=== PATIENT | female | born 1955 | race Caucasian/White ===

== ENCOUNTER 2016-02-09 08:58 | Inpatient (IN) | payer OTHER ==
[2016-02-09] VITALS (7 sets, daily range): BP systolic 114–164; BP diastolic 76–104; PULSE 93–149; TEMP 36.5–36.9; O2SAT 95–100; Ht 154.9 cm; Wt 69.2 kg
[~2016-02-09] VITALS: Ht 154.9 cm; Wt 69.2 kg
[~2016-02-09 08:58] MED LIST: ACET325T96 PO; ALBU1AER9 INH; CALC-20 PO; IBUP-1427 PO; IPRASOL4 INH; LISI-461 PO; MGNO400 PO; OMEP40CA PO; SYMIN/8045 INH
[2016-02-09 09:33] LABS: BASO % 0.5 %; BASO ABS # 0.03 K/uL (0-0.2); COMPLETE YES; EOS % 0.9 %; HEMATOCRIT 34.5 % (37-47); IG% 0.4 %; LYMPH % 21.1 %; LYMPH ABS # 1.18 K/uL (1.2-3.4); MEAN CELL VOLUME 97.5 fL (80-100); MEAN CORPUSCULAR HEMOGLOBIN 36.4 pg (25-34); MEAN CORPUSCULAR HGB CONC 37.4 g/dl (32-36); MEAN PLATELET VOLUME 9.2 fL (7.4-10.4); MONO % 9.8 %; NEUT % 67.3 %; PLATELET COUNT 281 K/uL (130-400); RED BLOOD COUNT 3.54 M/uL (4.2-5.4); WHITE BLOOD COUNT 5.59 K/uL (4.8-10.8)
[2016-02-09 09:52] LABS: ALT/SGPT 70 U/L (12-78); BLOOD UREA NITROGEN 6 mg/dl (7-18); CARBON DIOXIDE 25 mmol/L (21-32); CHLORIDE 93 mmol/L (98-107); CREATININE 0.92 mg/dl (0.60-1.20); GLUCOSE 81 mg/dl (70-99); POTASSIUM 3.1 mmol/L (3.5-5.1); SODIUM 134 mmol/L (136-145)
[2016-02-09 09:56] LABS: ALKALINE PHOSPHATASE 91 U/L (45-117); AST/SGOT 96 U/L (15-37); PHOSPHORUS 4.9 mg/dl (2.5-4.9)
--- NOTE | 2016-02-09 10:00 | DIAGNOSTIC IMAGING REPORT ---
CHEST ONE VIEW PORTABLE CLINICAL HISTORY: Palpitations. Nausea. COMPARISON STUDY: Chest radiograph November 07, 2013. FINDINGS: Lung volumes are normal. Lungs are clear. There is no evidence of pulmonary edema. Cardiac size is normal. Mediastinal contours are normal. There is a healed fracture of the right sixth rib. There may be calcific tendinitis of the left rotator cuff. IMPRESSION: No acute cardiopulmonary findings. Electronically signed by: Bunny Morton M.D. 02/09/2016 9:57 AM
[2016-02-09 10:09] LABS: CALCIUM 6.8 mg/dl (8.5-10.1)
[2016-02-09 10:11] LABS: MAGNESIUM 0.5 mg/dl (1.8-2.4)
[2016-02-09] MEDS ORDERED: MAGNESIUM SULFATE 1GM / D5W 1 GM BAG IV STA (10:12)
[2016-02-09] MEDS ORDERED: CALCIUM GLUCONATE 10% 10 ML VIAL IV STA (10:45)
--- NOTE | 2016-02-09 10:45 | EMERGENCY ROOM VISIT NOTE ---
History First contact with patient: 09:13 Chief Complaint: REFERRED BY DOCTOR Stated Complaint: NAUSEA History of Present Illness The patient is a 60 year old female who presents to the Emergency Room with complaints of tingling in both of her arms and legs. The patient reports that she has had a feeling of pins and needles in bilateral arms and legs on and off for the past 2-3 weeks. She reports her symptoms have become more constant over the past few days. She was seen at her primary care provider's office this morning and sent here for further evaluation. The patient does report a history of similar symptoms years ago and states that at that time, she was seen here and admitted for low magnesium and low calcium. The patient also reports that she has had left lower quadrant abdominal pain for "a long time." She did not mention this to her primary care provider until this morning. She denies any change in his pain. She denies associated nausea, vomiting or bowel movement changes. She denies any chest pain, shortness of breath, weakness, headache, blurred vision, slurred speech or confusion. The patient denies any changes in her diet. She reports that she has been taking her magnesium and calcium supplements as prescribed. Review of Systems A complete 10-point Review of Systems was discussed with the patient, with pertinent positives and negatives listed in the History of Present Illness. All remaining Review of Systems questions can be considered negative unless otherwise specified. Past Medical/Surgical History Medical Problems: (1) Alcoholism (2) Asthma (3) High cholesterol Family History No pertinent family history Social History Smoking Status: Never Smoker Alcohol Use: heavy Drug Use: none Housing Status: lives with family Occupation Status: unemployed Current/Historical Medications Scheduled Albuterol (Proair Hfa), 2 PUFFS INH QID Budesonide/Formoterol Fumarate (Symbicort 80/4.5 Inhaler), 2 PUFFS INH BID Calcium Carbonate-Vitamin D (Calcium 600 + D), 1 TAB PO DAILY Lisinopril (Zestril), 20 MG PO DAILY Magnesium Oxide (Magnesium-Oxide), 400 MG PO DAILY Omeprazole (Prilosec), 40 MG PO DAILY Scheduled PRN Ibuprofen Tab (Motrin), 600 MG PO Q6H PRN for Pain Ipratropium-Albuterol (Duoneb), 1 TREATMENT INH Q4H PRN for SOB/Wheezing Allergies Coded Allergies: No Known Allergies (Unverified , 02/09/16) Physical Exam Vital Signs Date Time Temp Pulse Resp B/P Pulse Ox O2 Delivery O2 Flow Rate FiO2 02/09/16 12:11 90 24 136/93 94 Room Air 02/09/16 11:02 36.9 104 18 114/76 97 Room Air 02/09/16 10:42 100 18 114/76 97 Room Air 02/09/16 09:06 36.9 114 18 149/94 98 Room Air Physical Exam VITALS: Vitals are noted on the nurse's note and reviewed by myself. Vital signs stable. GENERAL: This is a 60-year-old female, in no acute distress, nondiaphoretic, well-developed well-nourished. SKIN: Capillary reflex less than 2 seconds. HEENT: Normocephalic. PERRLA. EOMI. Nares patent. Mucous membranes moist. Neck is supple without nuchal rigidity. HEART: Regular rate and rhythm without murmurs gallops or rubs. LUNGS: Clear to auscultation bilaterally without wheezes, rales or rhonchi. No retractions or accessory muscle use. ABDOMEN: Positive bowel sounds x 4. Mild tenderness to palpation of the left lower quadrant. MUSCULOSKELETAL: Full range of motion of all joints. Strength 5/5 throughout. NEURO: Patient was alert and oriented to person place and time. Normal sensation to light and sharp touch. No focal neurological deficits. Medical Decision & Procedures ER Provider Diagnostic Interpretation: CHEST ONE VIEW PORTABLE CLINICAL HISTORY: Palpitations. Nausea. COMPARISON STUDY: Chest radiograph November 07, 2013. FINDINGS: Lung volumes are normal. Lungs are clear. There is no evidence of pulmonary edema. Cardiac size is normal. Mediastinal contours are normal. There is a healed fracture of the right sixth rib. There may be calcific tendinitis of the left rotator cuff. IMPRESSION: No acute cardiopulmonary findings. Laboratory Results Test 02/09/16 09:15 Immature Granulocyte % (Auto) 0.4 % White Blood Count 5.59 K/uL (4.8-10.8) Red Blood Count 3.54 M/uL (4.2-5.4) Hemoglobin 12.9 g/dL (12.0-16.0) Hematocrit 34.5 % (37-47) Mean Corpuscular Volume 97.5 fL (80-100) Mean Corpuscular Hemoglobin 36.4 pg (25-34) Mean Corpuscular Hemoglobin Concent 37.4 g/dl (32-36) Platelet Count 281 K/uL (130-400) Mean Platelet Volume 9.2 fL (7.4-10.4) Neutrophils (%) (Auto) 67.3 % Lymphocytes (%) (Auto) 21.1 % Monocytes (%) (Auto) 9.8 % Eosinophils (%) (Auto) 0.9 % Basophils (%) (Auto) 0.5 % Neutrophils # (Auto) 3.76 K/uL (1.4-6.5) Lymphocytes # (Auto) 1.18 K/uL (1.2-3.4) Monocytes # (Auto) 0.55 K/uL (0.11-0.59) Eosinophils # (Auto) 0.05 K/uL (0-0.5) Basophils # (Auto) 0.03 K/uL (0-0.2) Immature Granulocyte # (Auto) 0.02 K/uL (0.00-0.02) Phosphorus Level 4.9 mg/dl (2.5-4.9) Total Bilirubin 0.3 mg/dl (0.2-1) Aspartate Amino Transf (AST/SGOT) 96 U/L (15-37) Alanine Aminotransferase (ALT/SGPT) 70 U/L (12-78) Alkaline Phosphatase 91 U/L (45-117) Total Creatine Kinase 134 U/L (26-192) Troponin I < 0.015 ng/ml (0-0.045) Total Protein 8.2 gm/dl (6.4-8.2) Albumin 4.0 gm/dl (3.4-5.0) Globulin 4.2 gm/dl (2.5-4.0) Albumin/Globulin Ratio 1.0 (0.9-2) Thyroid Stimulating Hormone (TSH) 1.150 uIu/ml (0.300-4.500) Medications Administered Medications (Trade) Dose Ordered Sig/Rosemary Route Start Time Stop Time Status Last Admin Dose Admin Magnesium Sulfate (Magnesium Sulfate) 2 gm NOW STAT IV 02/09/16 10:12 02/09/16 10:13 DC 02/09/16 10:38 2 GM Calcium Gluconate (Calcium Gluconate 10%) 1,000 mg NOW STAT IV 02/09/16 10:45 02/09/16 10:46 DC 02/09/16 11:43 1,000 MG ECG Indication: other Rate (beats per minute): 101 Rhythm: sinus tachycardia Findings: nonspecific-ST abn (Lateral) Medical Decision Differential diagnosis includes electrolyte abnormality, arrhythmia, The patient was evaluated as above. Labs were drawn and IV access was obtained. Imaging studies were performed and read by radiology as above. The patient was medicated with 2 g magnesium and 1 g calcium IV. The patient was reassessed multiple times during their stay in the emergency department and remained in stable condition. The patient is a 60-year-old female who presents today complaining of tremors which are similar to the symptoms she had when she was seen here previously for hypomagnesemia and hypocalcemia. She also reports left lower quadrant pain which has been ongoing for several months. Labs revealed no concerning leukocytosis or anemia. Magnesium was found to be significantly low at 0.5. Calcium is also significantly low. Chest x-ray was unremarkable. EKG showed a sinus tachycardia without arrhythmias. The patient will need to be admitted for further evaluation and to correct her electrolyte abnormalities. Case was discussed with Dr. Portillo, ED attending, who agreed with the assessment and treatment plan. The patient's case was discussed with Dr. Jimenez, the [facility] hospitalist, who agreed to evaluate the patient. Impression Primary Impression: Hypomagnesemia Additional Impression: Hypocalcemia Departure Information Referrals Renee Murillo DO (PCP) Patient Instructions A Signature Page, My [facility]
[2016-02-09] MEDS ORDERED: ONDANSETRON INJ 2 MG/ML 2 ML VIAL IV PRN (12:00)
[2016-02-09] MEDS ORDERED: POLYETHYLENE (MIRALAX) 17 GM PACK PO PRN (12:00)
[2016-02-09] MEDS ORDERED: ALBUT/IPRATROP 3MG/0.5MG NEB 3 ML VIAL INH PRN (12:00)
[2016-02-09] MEDS ORDERED: MAGNESIUM HYDROXIDE SUSP 30 ML UDC PO PRN (12:00)
[2016-02-09] MEDS ORDERED: ALUMINUM/MAGNESIUM/SIMETH (MAALOX MAX) 30 ML UDC PO PRN (12:00)
[2016-02-09] MEDS ORDERED: POTASSIUM CHLR 20 MEQ / WTR 40 MEQ in PREMIXED WATER 100 ML IV ONE (12:30)
[2016-02-09] MEDS ORDERED: OPTIRAY 320 IV PRN (12:45)
[2016-02-09] MEDS ORDERED: ALBUTEROL HFA 8 GM INHALER INH SCH (13:00)
--- NOTE | 2016-02-09 13:20 | History and Physical ---
History & Physical Date & Time of Service: Feb 09, 2016 at 12:46 Chief Complaint: Nausea Primary Care Physician: Renee Murillo DO History of Present Illness Source: patient, clinic records, hospital records This is a 60 y/o female with a history of hypomagnesemia, COPD, HTN, HLD, GERD, and urticaria who presented to the ED on 02/08 with numbness and tingling in her arms and legs and tremors. The numbness and tingling first began about 2 weeks ago and was initially intermittent. The symptoms began to happen more frequently, and her tingling is now constant. The patient states that it affects her whole arm from fingers to shoulder bilaterally as well her entire leg from toes to hip bilaterally. She describes it as a "pins and needles" sensation. The patient also started experiencing tremors 2 weeks ago that have increased in frequency and severity. The tremors are better at rest and are worse when she moves her extremities. She states that the tremors seemed to have improved since being in the ER, however. The patient has a history of hypomagnesemia and had a very similar presentation about 2 years ago. She was found to have low electrolytes at that time as well, and her symptoms resolved once they were replaced, and she has been kept on oral magnesium and calcium supplements since. The patient also complains of weakness, fatigue, nausea, decreased appetite and trouble sleeping in the last few weeks. She states that she has been dry heaving but not actually vomiting. She also complains of diarrhea and abdominal pain that has been more chronic and began months ago. She rates her abdominal pain currently as a dull 4/10 pain in the left lower quadrant, but the pain is sometimes sharp in character. She has not received any work up regarding the abdominal pain or diarrhea. The patient denies fevers , chills, sweats, syncope, chest pain, palpitations, claudication, wheezing, shortness of breath, vomiting, hematochezia, melena, dysuria, hematuria, urinary retention, and paralysis. Past Medical/Surgical History Medical Problems: (1) Alcoholism Status: Chronic (2) Asthma Status: Chronic (3) High cholesterol Status: Chronic HTN COPD Hypomagnesemia Urticaria Family History Asthma Emphysema Hypertension Social History Smoking Status: Current Every Day Smoker (1/2 ppd x 50 years) Smokeless Tobacco Use: No Alcohol Use: heavy (1-2 drinks (vodka and coke) per day) Drug Use: none Marital Status: Housing status: lives with significant other Occupational Status: retired Allergies Coded Allergies: No Known Allergies (Unverified , 02/09/16) Home Medications Scheduled Albuterol (Proair Hfa), 2 PUFFS INH QID Budesonide/Formoterol Fumarate (Symbicort 80/4.5 Inhaler), 2 PUFFS INH BID Calcium Carbonate-Vitamin D (Calcium 600 + D), 1 TAB PO DAILY Lisinopril (Zestril), 20 MG PO DAILY Magnesium Oxide (Magnesium-Oxide), 400 MG PO DAILY Omeprazole (Prilosec), 40 MG PO DAILY Scheduled PRN Ibuprofen Tab (Motrin), 600 MG PO Q6H PRN for Pain Ipratropium-Albuterol (Duoneb), 1 TREATMENT INH Q4H PRN for SOB/Wheezing Review of Systems Constitutional: + fatigue, + weakness, No chills, No fever, No sweats Eyes: No diplopia, No eye pain, No worsening of vision ENT: No hearing loss, No sore throat, No tinnitus Respiratory: + cough (chronic, smoker), No shortness of breath, No wheezing Cardiovascular: No chest pain, No claudication, No palpitations Abdomen: + diarrhea, + nausea, + pain (4/10 LLQ pain), No GI bleeding, No vomiting Musculoskeletal: No calf pain, No joint pain, No muscle pain Genitourinary - Female: No dysuria, No hematuria, No urinary incontinence Neurologic: + numbness/tingling, No paralysis, No vertigo, No weakness (no muscle weakness) Integumentary: No color change, No itch, No rash Physical Exam Vital Signs Date Time Temp Pulse Resp B/P Pulse Ox O2 Delivery O2 Flow Rate FiO2 02/09/16 12:11 90 24 136/93 94 Room Air 02/09/16 11:02 36.9 104 18 114/76 97 Room Air 02/09/16 10:42 100 18 114/76 97 Room Air 02/09/16 09:06 36.9 114 18 149/94 98 Room Air General Appearance: WD/WN, no apparent distress Head: normocephalic, atraumatic Eyes: normal inspection, PERRL, EOMI ENT: normal ENT inspection, hearing grossly normal, pharynx normal Neck: supple, no JVD, trachea midline Respiratory/Chest: lungs clear, normal breath sounds, no respiratory distress, + decreased breath sounds Cardiovascular: regular rate, rhythm, no gallop, no murmur Abdomen/GI: normal bowel sounds, soft, + tenderness (LLQ TTP without guarding or rebound tenderness) Extremities/Musculoskelatal: normal inspection, no calf tenderness, no pedal edema Neurologic/Psych: alert, normal mood/affect, oriented x 3 Skin: normal color, warm/dry, no rash Diagnostics Laboratory Results Results Past 24 Hours Test 02/09/16 09:15 02/09/16 12:17 02/09/16 12:28 Range/Units White Blood Count 5.59 4.8-10.8 K/uL Red Blood Count 3.54 4.2-5.4 M/uL Hemoglobin 12.9 12.0-16.0 g/dL Hematocrit 34.5 37-47 % Mean Corpuscular Volume 97.5 80-100 fL Mean Corpuscular Hemoglobin 36.4 25-34 pg Mean Corpuscular Hemoglobin Concent 37.4 32-36 g/dl Platelet Count 281 130-400 K/uL Mean Platelet Volume 9.2 7.4-10.4 fL Neutrophils (%) (Auto) 67.3 % Lymphocytes (%) (Auto) 21.1 % Monocytes (%) (Auto) 9.8 % Eosinophils (%) (Auto) 0.9 % Basophils (%) (Auto) 0.5 % Neutrophils # (Auto) 3.76 1.4-6.5 K/uL Lymphocytes # (Auto) 1.18 1.2-3.4 K/uL Monocytes # (Auto) 0.55 0.11-0.59 K/uL Eosinophils # (Auto) 0.05 0-0.5 K/uL Basophils # (Auto) 0.03 0-0.2 K/uL RDW Standard Deviation 44.7 36.4-46.3 fL RDW Coefficient of Variation 12.8 11.5-14.5 % Immature Granulocyte % (Auto) 0.4 % Immature Granulocyte # (Auto) 0.02 0.00-0.02 K/uL Sodium Level 134 136-145 mmol/L Potassium Level 3.1 3.5-5.1 mmol/L Chloride Level 93 98-107 mmol/L Carbon Dioxide Level 25 21-32 mmol/L Anion Gap 16.0 3-11 mmol/L Blood Urea Nitrogen 6 7-18 mg/dl Creatinine 0.92 0.60-1.20 mg/dl Est Creatinine Clear Calc Drug Dose 56.5 ml/min Estimated GFR () 78.4 Estimated GFR (Non- 67.7 BUN/Creatinine Ratio 6.0 10-20 Random Glucose 81 70-99 mg/dl Calcium Level 6.8 8.5-10.1 mg/dl Phosphorus Level 4.9 2.5-4.9 mg/dl Magnesium Level 0.5 1.8-2.4 mg/dl Total Bilirubin 0.3 0.2-1 mg/dl Aspartate Amino Transf (AST/SGOT) 96 15-37 U/L Alanine Aminotransferase (ALT/SGPT) 70 12-78 U/L Alkaline Phosphatase 91 45-117 U/L Total Creatine Kinase 134 26-192 U/L Troponin I < 0.015 0-0.045 ng/ml Total Protein 8.2 6.4-8.2 gm/dl Albumin 4.0 3.4-5.0 gm/dl Globulin 4.2 2.5-4.0 gm/dl Albumin/Globulin Ratio 1.0 0.9-2 Thyroid Stimulating Hormone (TSH) 1.150 0.300-4.500 uIu/ml Diagnostic Radiology Reviewed the following studies and agree with interpretation as follows: Patient Name: OLIVIA BOWER Unit Number: [id number] Dictated: 02/09/16941 Transcribed: 02/09/16941 SARAH Printed Date/Time: [~ rep prt dt]/[~ rep prt tm] [~ rep ct labl] - [~ rep ct ivnm] [facility] [place] [address] Dictated: 02/09/16941 Transcribed: 02/09/16941 SARAH Printed Date/Time: [~ rep prt dt]/[~ rep prt tm] [~ rep ct labl] - [~ rep ct ivnm] Patient: OLIVIA BOWER Address1: [address] [place] [address] Rec: [id number] Address2: Acct ID: [id number] [facility] Zip: [place] [address] Date: 1955 Sex: F Room/Bed: Ref Phy: Renee Murillo DO SC: RONNY Att Phy: Report #: [id number] Natasha Phy: Renee Murillo DO Test: CXR1P Admit Phy: Audiovisual Librarian: JERAMIE Interpreting Phy: Bunny Morton MD Diagnosis: NAUSEA Ordering Phy: Liza Ling PA-C Service Date: 02/09/16 Admit Date: 02/09/16 MNE: [id number] CONF: DICTATED BY: Bunny Morton MD]] CC: Renee Murillo DO Koch, Brooke .JESUS ALBERTO Kevin, D.O. Endcc: [~ rep ct add3]] CHEST ONE VIEW PORTABLE CLINICAL HISTORY: Palpitations. Nausea. COMPARISON STUDY: Chest radiograph November 07, 2013. FINDINGS: Lung volumes are normal. Lungs are clear. There is no evidence of pulmonary edema. Cardiac size is normal. Mediastinal contours are normal. There is a healed fracture of the right sixth rib. There may be calcific tendinitis of the left rotator cuff. IMPRESSION: No acute cardiopulmonary findings. Electronically signed by: Bunny Morton M.D. 02/09/2016 9:57 AM The status of this report is Signed. Draft = Not yet reviewed or approved by Radiologist. Signed = Reviewed and approved by Radiologist. <AttendingPhy></AttendingPhy> <FamilyPhy>Renee Murillo DO</FamilyPhy> < PrimaryPhy>Renee Murillo DO</PrimaryPhy> <UnitNumber>[id number]</ UnitNumber> <VisitNumber>[id number]</VisitNumber> <PatientName>OLIVIA BOWER</ PatientName> <DateOfBirth>1955</DateOfBirth> <Location>[facility]</Location> < ServiceDate>02/09/16</ServiceDate> <MNE>ESINDI</MNE> <OrderingPhy>Liza Ling PA-C</OrderingPhy> <OrderingPhyMNE>f rep ord dr farias</OrderingPhyMNE> < DictatingPhyMNE>f rep dict dr farias</DictatingPhyMNE> <CCListMNE>f rep ct zhange</ CCListMNE> <AdmittingPhyMNE>f pt admit dr farias</AdmittingPhyMNE> <AttendingPhyMNE >f pt attend dr farias</AttendingPhyMNE> <ConsultingPhyMNE>f pt consult dr farias</ConsultingPhyMNE> <FamilyPhyMNE>f pt fam dr farias</FamilyPhyMNE> <OtherPhyMNE>f pt other dr farias</OtherPhyMNE> < PrimaryPhyMNE>f pt prim care dr farias</PrimaryPhyMNE> <ReferringPhyMNE>f pt referring dr farias</ReferringPhyMNE> EKG Reviewed EKG and agree with interpretation as follows: 101 bpm, sinus tachycardia, inverted T waves in lateral leads Impression Assessment and Plan 60 y/o female with a history of hypomagnesemia, COPD, HTN, HLD, GERD, and urticaria who presented to the ED on 02/08 with numbness and tingling in her arms and legs and tremors. Tingling began 2 weeks ago intermittently at first, now constant. Accompanied by nausea, decreased appetite, weakness and fatigue. Pt also c/o diarrhea and LLQ pain in last few months. Tachycardic, HR 100-110s. Magnesium 0.5, calcium 6.8, potassium 3.1. Cardiac enzymes negative x 1. CXR no acute disease. Hypomagnesemia, hypocalcemia, hypokalemia -Admitted to telemetry for cardiac monitoring -Check ionized calcium, prealbumin, folic acid, vitamin B12 -Pt. received magnesium sulfate 2 gm IV and calcium gluconate 1 gm IV in ED -Potassium chloride 40 mEq IV x1 now -Recheck PRP and magnesium 4 hours after infusions. Continue to monitor with daily PRP and magnesium -EKG q am and prn with chest pain -Hold omeprazole due to hypomagnesemia -Hold oral Mg and Ca supplements as pt. likely not absorbing anyway. Pt. reports she has been taking Mag-Ox 400 mg PO QID, and started taking 6x/day when tingling first began due to previous episode 2 years ago. Pt also taking calcium supplement everyday. Diarrhea/LLQ pain -CT abdomen/pelvis with PO and IV contrast COPD -Continue Symbicort 2 puffs inh BID, ProAir 2 puffs inh QID, and Duoneb q4h prn SOB/wheezing HTN -Continue lisinopril 20 mg PO qd GERD -Hold omeprazole as above GI prophylaxis -Maalox Max 15 mL PO q4h prn dyspepsia -Milk of magnesia 30 mL PO q6h prn constipation -Miralax 17 gm PO qd prn constipation -Zofran 4 mg IV q6h prn nausea DVT prophylaxis -Enoxaparin 40 mg SC q24h -JESSICA crespo and SCDs Code Status -Level I, FULL RESUSCITATION STATUS Level of Care Telemetry Advanced Directives Existing Advance Directive: No Existing Living Will: No Existing Power of Spread Cutter: No Resuscitation Status FULL RESUSCITATION VTE Prophylaxis VTE Risk Assessment Done? Y/N: Yes Risk Level: Moderate Given or contraindicated: Enoxaparin (Lovenox)SQ, T.E.D. Stockings, SCD's
[2016-02-09] MEDS ORDERED: ALBUT/IPRATROP 3MG/0.5MG NEB 3 ML VIAL INH STA (15:32)
--- NOTE | 2016-02-09 15:32 | DIAGNOSTIC IMAGING REPORT ---
CT ABD/PELVIS IV AND ORAL CONT CLINICAL HISTORY: diarrhea and LLQ pain COMPARISON STUDY: 02/18/2014 TECHNIQUE: Following the IV administration of 93 mL of Optiray-320, CT scan of the abdomen and pelvis was performed from the lung bases to the proximal femurs. Images are reviewed in the axial, sagittal, and coronal planes. IV contrast was administered without complication. CT DOSE: 317.02 mGy.cm FINDINGS: Lower chest: There is pulmonary emphysema. There is no focal pulmonary consolidation Liver: There is severe hepatic steatosis. No focal masses are visualized. Gallbladder: Unremarkable. Spleen: Normal in size and attenuation. Pancreas: Unremarkable. Adrenal glands: Unremarkable. Kidneys: There is symmetric renal cortical enhancement. The kidneys are normal in size without hydronephrosis. Bowel: There are no transition zones indicate bowel obstruction. There is no evidence of acute appendicitis. There is no evidence of acute diverticulitis. There is gastric wall thickening versus a nondistended stomach Peritoneum: There is no intraperitoneal free air or abdominal ascites. Vasculature: The abdominal aorta is normal in course and caliber. Adenopathy: None. Pelvic viscera: The bladder, and pelvic viscera are unremarkable. Skeletal structures: No destructive osseous lesions are seen. IMPRESSION: 1. Hepatic steatosis 2. No evidence of bowel obstruction. No evidence of free air 3. Diffuse gastric wall thickening versus a nondistended stomach 4. No evidence of acute diverticulitis. No evidence of acute appendicitis. Electronically signed by: Richard Urbina M.D. 02/09/2016 3:30 PM
[2016-02-09] MEDS: METHYLPREDNISOLONE 125 MG VIAL ONE ×2 (15:34→15:47)
[2016-02-09] MEDS ORDERED: METHYLPREDNISOLONE IV 125 MG in SYRINGE 0 ML IV STA (15:35)
[2016-02-09] MEDS ORDERED: MoRPHine SULFATE 2 MG/ML CARP ONE (15:40)
[2016-02-09] MEDS ORDERED: MAGNESIUM SULFATE 1GM / D5W 1 GM in PREMIXED IN D5W 100 ML IV SCH (15:45)
[2016-02-09 15:59] LABS: HEMATOCRIT 33.1 % (37-47); MEAN CELL VOLUME 98.8 fL (80-100); MEAN CORPUSCULAR HEMOGLOBIN 35.8 pg (25-34); MEAN CORPUSCULAR HGB CONC 36.3 g/dl (32-36); MEAN PLATELET VOLUME 9.1 fL (7.4-10.4); PLATELET COUNT 257 K/uL (130-400); RED BLOOD COUNT 3.35 M/uL (4.2-5.4); WHITE BLOOD COUNT 5.99 K/uL (4.8-10.8)
[2016-02-09] MEDS: POTASSIUM CHLR 10MEQ / WTR IV SCH ×2 (16:05→17:11)
[2016-02-09] MEDS ORDERED: POTASSIUM CHLORIDE 10 MEQ TABCR PO STA (16:11)
[2016-02-09 16:13] LABS: PROTHROMBIN TIME (PATIENT) 10.3 SECONDS (9.0-12.0)
[2016-02-09 16:20] LABS: CREATININE 0.78 mg/dl (0.60-1.20); MAGNESIUM 2.5 mg/dl (1.8-2.4)
[2016-02-09 16:24] LABS: PREALBUMIN 21.1 mg/dl (20-40)
--- NOTE | 2016-02-09 16:34 | Gastrointestinal Consultation ---
Gastrointestinal Consultation Date of Consultation: Feb 09, 2016 Attending Physician: Dr. Scherer Consulting Physician: Dr. Celis/ELPIDIO Jamison Reason for Consultation: Hypomagnesemia and chronic diarrhea History of Present Illness Patient is a 60 year old female with a history of COPD, HTN, HLD, GERD and urticaria presenting to the hospital with symptoms of numbness and tingling in her extremities that has been ongoing for approximately two weeks. She reports that she has been consuming approximately two alcoholic beverages per day to alleviate the symptoms of neuropathy. She does also consume tobacco daily but denies any NSAID use. She has reportedly been having significant although intermittent diarrhea chronically for many months. Her bowel frequency is 4-5 times per day although some days she will only have one bowel movement. The stools are mostly liquid in nature. Denies any mucoid, bloody or melanotic stool. She does report some mild left lower quadrant abdominal pain and unintentional weight loss of > 10 pounds over the past two months. Denies any nausea or vomiting, although she does state she has occasional "dry heaves". No hematemesis. Denies any foreign travel, antibiotic use within the past 6 months , or suspicious food/beverage consumption. No ill contacts. On arrival, she was noted to have significant electrolyte abnormalities as follows: sodium 134, potassium 3.1, and magnesium 0.5. She is currently receiving IV repletion. On arrival, she was not noted to have any significant renal abnormalities. No leukocytosis or anemia. She has been ordered an abdominopelvic CT for further evaluation of symptoms which is pending. She reports that while undergoing the testing, she did become short of breath and was having "an asthma attack". She is currently receiving medical management in this regard by the primary team. She is having 95% pulse ox readings on room air. She denies any significant chest pain, palpitations, shortness of breath or SUAREZ at the time of visit. Patient did previously undergo a complete colonoscopy with histology of a tubular adenoma from the hepatic flexure in 2010. The testing was performed while she resided in [place]. From review of the pathology report, it appears complete removal of the polyp is unclear. I do not have a copy of the colonoscopy report to review today to assist with this delineation. Past Medical/Surgical History Past Medical History: 1. Alcoholism 2. Asthma 3. Hyperlipemia 4. Hypertension 5. COPD 6. Hypomagnesemia 7. GERD 8. Urticaria 9. Colon polyps Past Surgical History: 1. Complete colonoscopy Family History Asthma Emphysema Hypertension Negative for GI malignancy and IBD Social History Smoking Status: Current Every Day Smoker (1/2 ppd x 50 years) Alcohol Use: heavy Drug Use: none Marital Status: Housing Status: lives with family Occupation Status: retired Allergies Coded Allergies: No Known Allergies (Unverified , 02/09/16) Current Medications Home Meds and Scripts Medications Dose Route/Sig Max Daily Dose Days Date Category Motrin (Ibuprofen) 600 Mg Tab 600 Mg PO Q6H PRN 02/18/14 Reported Magnesium-Oxide (Magnesium Oxide) 400 Mg Tab 400 Mg PO DAILY 11/09/13 Rx Duoneb (Ipratropium-Albuterol) 3 Ml Nebu 1 Treatment INH Q4H PRN 11/07/13 Reported Calcium 600 + D (Calcium Carbonate-Vitamin D) 1 Tab Tab 1 Tab PO DAILY 11/07/13 Reported Symbicort 80/4.5 Inhaler (Budesonide/Formoterol Fumarate) Aero 2 Puffs INH BID 11/07/13 Reported Proair Hfa (Albuterol) Aers 2 Puffs INH QID 11/07/13 Reported Zestril (Lisinopril) 10 Mg Tab 20 Mg PO DAILY 11/07/13 Reported Prilosec (Omeprazole) 40 Mg Capcr 40 Mg PO DAILY 11/07/13 Reported Review of Systems Constitutional: + fatigue, No chills, No fever Eyes: No problem reported ENT: No problem reported Respiratory: + see HPI Cardiac: + see HPI Abdomen: + see HPI Musculoskeletal: + problem reported (joint stiffness in hands), No swelling Female : No problem reported Neuro: + see HPI Psych: No problem reported Heme: No problem reported Skin: No problem reported Physical Exam Date Time Temp Pulse Resp B/P Pulse Ox O2 Delivery O2 Flow Rate FiO2 02/09/16 14:00 36.5 95 18 141/96 99 Room Air 02/09/16 14:00 96 Room Air 02/09/16 13:27 114 24 133/81 94 02/09/16 12:11 90 24 136/93 94 Room Air 02/09/16 11:02 36.9 104 18 114/76 97 Room Air 02/09/16 10:42 100 18 114/76 97 Room Air 02/09/16 09:06 36.9 114 18 149/94 98 Room Air General Appearance: + mild distress Eyes: EOMI ENT: hearing grossly normal Neck: supple Respiratory/Chest: lungs clear, normal breath sounds, no respiratory distress Cardiovascular: regular rate, rhythm, no gallop, no murmur Abdomen: normal bowel sounds, soft, + tenderness (left lower quadrant) Extremities: no pedal edema Neurologic/Psych: alert, normal mood/affect, oriented x 3 Skin: warm/dry Laboratory Results Last 24 Hours Test 02/09/16 09:15 02/09/16 12:17 02/09/16 14:36 02/09/16 15:45 White Blood Count 5.59 K/uL 5.99 K/uL Red Blood Count 3.54 M/uL 3.35 M/uL Hemoglobin 12.9 g/dL 12.0 g/dL Hematocrit 34.5 % 33.1 % Mean Corpuscular Volume 97.5 fL 98.8 fL Mean Corpuscular Hemoglobin 36.4 pg 35.8 pg Mean Corpuscular Hemoglobin Concent 37.4 g/dl 36.3 g/dl Platelet Count 281 K/uL 257 K/uL Mean Platelet Volume 9.2 fL 9.1 fL Neutrophils (%) (Auto) 67.3 % Lymphocytes (%) (Auto) 21.1 % Monocytes (%) (Auto) 9.8 % Eosinophils (%) (Auto) 0.9 % Basophils (%) (Auto) 0.5 % Neutrophils # (Auto) 3.76 K/uL Lymphocytes # (Auto) 1.18 K/uL Monocytes # (Auto) 0.55 K/uL Eosinophils # (Auto) 0.05 K/uL Basophils # (Auto) 0.03 K/uL RDW Standard Deviation 44.7 fL 46.9 fL RDW Coefficient of Variation 12.8 % 13.0 % Immature Granulocyte % (Auto) 0.4 % Immature Granulocyte # (Auto) 0.02 K/uL Sodium Level 134 mmol/L Potassium Level 3.1 mmol/L Chloride Level 93 mmol/L Carbon Dioxide Level 25 mmol/L Anion Gap 16.0 mmol/L Blood Urea Nitrogen 6 mg/dl Creatinine 0.92 mg/dl Est Creatinine Clear Calc Drug Dose 56.5 ml/min Estimated GFR () 78.4 Estimated GFR (Non- 67.7 BUN/Creatinine Ratio 6.0 Random Glucose 81 mg/dl Calcium Level 6.8 mg/dl Phosphorus Level 4.9 mg/dl Magnesium Level 0.5 mg/dl Total Bilirubin 0.3 mg/dl Aspartate Amino Transf (AST/SGOT) 96 U/L Alanine Aminotransferase (ALT/SGPT) 70 U/L Alkaline Phosphatase 91 U/L Total Creatine Kinase 134 U/L Troponin I < 0.015 ng/ml Total Protein 8.2 gm/dl Albumin 4.0 gm/dl Globulin 4.2 gm/dl Albumin/Globulin Ratio 1.0 Thyroid Stimulating Hormone (TSH) 1.150 uIu/ml Prothrombin Time 10.3 SECONDS Prothromb Time International Ratio 1.0 Test 02/09/16 15:54 02/09/16 16:02 02/09/16 16:06 Impression Patient is a 60 year old female with a history of numbness and tingling of the extremities presenting with severe hypomagnesemia, hypokalemia and hyponatremia in the setting of chronic diarrhea, LLQ pain and abnormal weight loss. The differential diagnoses include: infectious enteritis vs acute diverticulitis vs ischemic colitis vs IBD vs GI malignancy vs other. Plan 1. Recommend continued repletion of electrolyte imbalances and supportive care via primary team. 2. Stool for C Diff, fecal leukocytes, Giardia, and culture. 3. Await results of CT as pending. 4. Patient will need a repeat colonoscopy at some point as she is past due for routine colorectal surveillance and if no clear etiology of her diarrhea is identified. Will determine the timing pending results of testing as ordered. Thank you for allowing us to participate in the care of this mutual patient. If you have any questions or concerns, please do not hesitate to contact us. Addendum at 1651: CT without any acute process within the lower GI tract. Recommend initiation of Protonix 40 mg daily as possible gastric wall thickening and check a Celiac profile. Clear liquid diet ordered with NPO after midnight except medications. Discussed with Kyle Guido PA-C. Patient has been transferred to ICU room 102 as she did have an arrhythmia with a HR escalation into the 240 range. Therefore, due to recent electrolyte abnormalities and change in status, she will not be a good candidate for invasive work up tomorrow. Will re-evaluate her status tomorrow in this regard. Agree with ELPIDIO Jamison as above Gen: Anxious, jittery, tremor noted, tachycardic, and hypertensive on monitor Abd: Soft, Tender LLQ, ND, +BS Patient will certainly need colonoscopy in the near future, however, due to electrolyte abnormalities and cardiac arrhythmia will hold at present. She is an alcoholic and is exhibiting signs of DT's (Tachycardia, hypertension, anxiety, tremor). I discussed this with ICU team and recommended prophylaxis for DT's. Replete electrolytes as needed. Will follow clinical course and make further recommendations as needed.
[2016-02-09 17:21] LABS: BUN/CREATININE RATIO 8.2 (10-20); CALCIUM 7.1 mg/dl (8.5-10.1); CREATININE 0.77 mg/dl (0.60-1.20); POTASSIUM 3.1 mmol/L (3.5-5.1)
[2016-02-09] MEDS ORDERED: LAVAGE SOLUTION 4000ML PO SCH (18:00)
[2016-02-09] MEDS ORDERED: CHLORDIAZEPOXIDE 25 MG CAP PO PRN (18:30)
--- NOTE | 2016-02-09 18:55 | Critical Care Consultation ---
Critical Care Consultation Date of Consultation: Feb 09, 2016. Attending Physician: Chase Scherer MD, PhD Reason for Consultation: Hypomagnesemia History of Present Illness Mrs. Wolf is a pleasant 60 year old female with a background of hypomagnesemia , COPD, HTN, HLD, GERD, who presents today with symptoms of numbness and tingling in her arms and legs as well as her hands and feet that are constant Her symptoms started 2 weeks ago. Prior to this she denies have any symptoms atoll. It is noted from the EMR that she as admitted 2 years ago for similar symptoms and was discharged on calcium and magnesium supplementation. Since then she notes overall her symptoms had improved until approximately 2 weeks ago. She denies feeling unstable on her feet. However, she notes that occasionally she gets a mild burning pain in her hands and feet. She notes that she does take alcohol 2-3 units daily (voldka mix drinks), and they actually seem to help the paresthesias. She also notes for the past 2-3 months having a intermittent sharp pain in the left lower quadrant and suprapubic area. She has had diarrhea, but denies melena or bloody stools. She does get nauseated but no vomiting. She feels she has also lost weight over this time, but cannot ascertain how much. She denies any new medications She denies any fevers chills or nightsweats There is no history of recent travel. Prior to arrival to the ICU, she had an episode of cyanosis, respiratory distress with chest tightness following arrival to floor from abdominal CT ( with contrast). She was given BiPAP, solumedrol and Magnesium IV. Due to episode, she was transferred to the ICU for further management Family History Asthma Emphysema Hypertension Father had COPD Social History Smoking Status: Current Every Day Smoker (1/2 ppd x 50 years) Smokeless Tobacco Use: No Alcohol Use: heavy (2-3 drinks (vodka and coke) per day) Drug Use: none Marital Status: Housing Status: lives with family () Occupation Status: retired Allergies Coded Allergies: No Known Allergies (Unverified , 02/09/16) Home Medications Scheduled Albuterol (Proair Hfa), 2 PUFFS INH QID Budesonide/Formoterol Fumarate (Symbicort 80/4.5 Inhaler), 2 PUFFS INH BID Calcium Carbonate-Vitamin D (Calcium 600 + D), 1 TAB PO DAILY Lisinopril (Zestril), 20 MG PO DAILY Magnesium Oxide (Magnesium-Oxide), 400 MG PO DAILY Omeprazole (Prilosec), 40 MG PO DAILY Scheduled PRN Ibuprofen Tab (Motrin), 600 MG PO Q6H PRN for Pain Ipratropium-Albuterol (Duoneb), 1 TREATMENT INH Q4H PRN for SOB/Wheezing Current Inpatient Medications Current Inpatient Medications Medications (Trade) Dose Ordered Sig/Rosemary Route Start Time Stop Time Status Last Admin Dose Admin Enoxaparin Sodium (Lovenox Inj) 40 mg Q24H SC 02/09/16 21:00 03/10/16 20:59 Acetaminophen (Tylenol Tab) 650 mg Q4H PRN PO 02/09/16 12:00 03/10/16 11:59 Al Hydrox/Mg Hydrox/Simethicone (Maalox Max Susp) 15 ml Q4H PRN PO 02/09/16 12:00 03/10/16 11:59 Magnesium Hydroxide (Milk Of Magnesia Susp) 30 ml Q12H PRN PO 02/09/16 12:00 03/10/16 11:59 Ondansetron HCl (Zofran Inj) 4 mg Q6H PRN IV 02/09/16 12:00 03/10/16 11:59 Polyethylene (Miralax Powder Packet) 17 gm DAILY PRN PO 02/09/16 12:00 03/10/16 11:59 Budesonide/ Formoterol Fumarate (Symbicort 80/ 4.5 Inh) 2 puffs BID INH 02/09/16 21:00 03/10/16 20:59 Albuterol/ Ipratropium (Duoneb) 3 ml Q4H PRN INH 02/09/16 12:00 03/10/16 11:59 Lisinopril (Zestril Tab) 20 mg DAILY PO 02/10/16 09:00 03/11/16 08:59 Ioversol (Optiray 320) 100 ml UD PRN IV 02/09/16 12:45 02/13/16 12:44 Nicotine (Nicoderm Cq 14MG Patch) 1 patch QAM TD 02/10/16 09:00 03/11/16 08:59 Miscellaneous (Remove Nicoderm Patch) 1 ea HS N/A 02/09/16 21:00 03/10/16 20:59 Pantoprazole Sodium (Protonix Tab) 40 mg QAM PO 02/10/16 09:00 03/11/16 08:59 Chlordiazepoxide (Librium Cap) 50 mg Q4H PRN PO 02/09/16 18:30 03/10/16 18:29 UNV Review of Systems Review of systems was negative unless stated above in the HPI. Physical Exam Date Time Temp Pulse Resp B/P Pulse Ox O2 Delivery O2 Flow Rate FiO2 02/09/16 18:00 36.5 99 20 144/104 95 Nasal Cannula 2.0 02/09/16 17:30 105 20 133/90 96 Nasal Cannula 2.0 02/09/16 15:32 149 31 100 BiPAP/CPAP 40 02/09/16 15:32 140 100 40 02/09/16 14:00 36.5 95 18 141/96 99 Room Air 02/09/16 14:00 96 Room Air 02/09/16 13:27 114 24 133/81 94 02/09/16 12:11 90 24 136/93 94 Room Air 02/09/16 11:02 36.9 104 18 114/76 97 Room Air 02/09/16 10:42 100 18 114/76 97 Room Air 02/09/16 09:06 36.9 114 18 149/94 98 Room Air General Appearance: WD/WN, no apparent distress, + mild distress Head: normocephalic, atraumatic Eyes: normal inspection, EOMI ENT: hearing grossly normal, pharynx normal Neck: supple, no adenopathy, no JVD Respiratory/Chest: lungs clear, no respiratory distress Cardiovascular: regular rate, rhythm, no gallop, no murmur, + tachycardia Abdomen/GI: normal bowel sounds, soft, + pertinent finding (tenderness in the left lower quadrant) Back: no CVA tenderness, no muscle spasm Extremities/Musculoskelatal: no calf tenderness, no pedal edema Neurologic/Psych: tipple greaser II-XII nml as tested, alert, normal mood/affect, oriented x 3, + pertinent finding (noted to have resting tremors; exhibits past pointing and mild dysdiadokinesis) Skin: + pertinent finding (tanned skin appearance) Laboratory Results Last 24 Hours Test 02/09/16 09:15 02/09/16 14:36 02/09/16 15:24 02/09/16 15:45 White Blood Count 5.59 K/uL 5.99 K/uL Red Blood Count 3.54 M/uL 3.35 M/uL Hemoglobin 12.9 g/dL 12.0 g/dL Hematocrit 34.5 % 33.1 % Mean Corpuscular Volume 97.5 fL 98.8 fL Mean Corpuscular Hemoglobin 36.4 pg 35.8 pg Mean Corpuscular Hemoglobin Concent 37.4 g/dl 36.3 g/dl Platelet Count 281 K/uL 257 K/uL Mean Platelet Volume 9.2 fL 9.1 fL Neutrophils (%) (Auto) 67.3 % Lymphocytes (%) (Auto) 21.1 % Monocytes (%) (Auto) 9.8 % Eosinophils (%) (Auto) 0.9 % Basophils (%) (Auto) 0.5 % Neutrophils # (Auto) 3.76 K/uL Lymphocytes # (Auto) 1.18 K/uL Monocytes # (Auto) 0.55 K/uL Eosinophils # (Auto) 0.05 K/uL Basophils # (Auto) 0.03 K/uL RDW Standard Deviation 44.7 fL 46.9 fL RDW Coefficient of Variation 12.8 % 13.0 % Immature Granulocyte % (Auto) 0.4 % Immature Granulocyte # (Auto) 0.02 K/uL Sodium Level 134 mmol/L Potassium Level 3.1 mmol/L Chloride Level 93 mmol/L Carbon Dioxide Level 25 mmol/L Anion Gap 16.0 mmol/L Blood Urea Nitrogen 6 mg/dl Creatinine 0.92 mg/dl 0.78 mg/dl Est Creatinine Clear Calc Drug Dose 56.5 ml/min 66.6 ml/min Estimated GFR () 78.4 95.8 Estimated GFR (Non- 67.7 82.6 BUN/Creatinine Ratio 6.0 Random Glucose 81 mg/dl Calcium Level 6.8 mg/dl Phosphorus Level 4.9 mg/dl Magnesium Level 0.5 mg/dl 2.5 mg/dl Total Bilirubin 0.3 mg/dl Aspartate Amino Transf (AST/SGOT) 96 U/L Alanine Aminotransferase (ALT/SGPT) 70 U/L Alkaline Phosphatase 91 U/L Total Creatine Kinase 134 U/L Troponin I < 0.015 ng/ml Total Protein 8.2 gm/dl Albumin 4.0 gm/dl Globulin 4.2 gm/dl Albumin/Globulin Ratio 1.0 Thyroid Stimulating Hormone (TSH) 1.150 uIu/ml 25-Hydroxy Vitamin D Total 40.5 ng/ml Prothrombin Time 10.3 SECONDS Prothromb Time International Ratio 1.0 Prealbumin 21.1 mg/dl Vitamin B12 Level 613 pg/mL Folate 3.18 ng/mL Test 02/09/16 16:13 02/09/16 16:15 02/09/16 16:50 02/09/16 17:40 Sodium Level 134 mmol/L Potassium Level 3.1 mmol/L Chloride Level 94 mmol/L Carbon Dioxide Level 25 mmol/L Anion Gap 15.0 mmol/L Blood Urea Nitrogen 6 mg/dl Creatinine 0.77 mg/dl Est Creatinine Clear Calc Drug Dose 67.5 ml/min Estimated GFR () 97.3 Estimated GFR (Non- 83.9 BUN/Creatinine Ratio 8.2 Random Glucose 126 mg/dl Calcium Level 7.1 mg/dl Ionized Calcium 0.83 mmol/l Parathyroid Hormone (Intact) 226.7 pg/mL Lactic Acid Level 2.0 mmol/L Diagnostic Results CT ABD/PELVIS IV AND ORAL CONT CLINICAL HISTORY: diarrhea and LLQ pain COMPARISON STUDY: 02/18/2014 TECHNIQUE: Following the IV administration of 93 mL of Optiray-320, CT scan of the abdomen and pelvis was performed from the lung bases to the proximal femurs. Images are reviewed in the axial, sagittal, and coronal planes. IV contrast was administered without complication. CT DOSE: 317.02 mGy.cm FINDINGS: Lower chest: There is pulmonary emphysema. There is no focal pulmonary consolidation Liver: There is severe hepatic steatosis. No focal masses are visualized. Gallbladder: Unremarkable. Spleen: Normal in size and attenuation. Pancreas: Unremarkable. Adrenal glands: Unremarkable. Kidneys: There is symmetric renal cortical enhancement. The kidneys are normal in size without hydronephrosis. Bowel: There are no transition zones indicate bowel obstruction. There is no evidence of acute appendicitis. There is no evidence of acute diverticulitis. There is gastric wall thickening versus a nondistended stomach Peritoneum: There is no intraperitoneal free air or abdominal ascites. Vasculature: The abdominal aorta is normal in course and caliber. Adenopathy: None. Pelvic viscera: The bladder, and pelvic viscera are unremarkable. Skeletal structures: No destructive osseous lesions are seen. IMPRESSION: 1. Hepatic steatosis 2. No evidence of bowel obstruction. No evidence of free air 3. Diffuse gastric wall thickening versus a nondistended stomach 4. No evidence of acute diverticulitis. No evidence of acute appendicitis. CHEST ONE VIEW PORTABLE CLINICAL HISTORY: Palpitations. Nausea. COMPARISON STUDY: Chest radiograph November 07, 2013. FINDINGS: Lung volumes are normal. Lungs are clear. There is no evidence of pulmonary edema. Cardiac size is normal. Mediastinal contours are normal. There is a healed fracture of the right sixth rib. There may be calcific tendinitis of the left rotator cuff. IMPRESSION: No acute cardiopulmonary findings. Electronically signed by: Bunny Morton M.D. Assessment & Plan 60 year old with history of hypomagnesemia who presents with her second episode in 2 years of critical hypomagnesemia. She is noted to have an extensive alcohol history. She is under ICU care following an episode of respiratory distress and cyanosis following CT of the abdomen with contrast. Our plan for her is as follows: Neurological Alcohol Withdrawal - patient does seem mildly agitated at this time, notes extensive EtOH history. Also has tremors and is tachycardic - Will start her on Chlordiazepoxide 50 mg q6 hours PRN for agitation - Alcohol withdrawal protocol instituted Currently A/O x 3 Respiratory - Noted to have an episode of respiratory distress, was temporarily placed on BiPAP temporarily, no weaned to room air - Currently denies dyspnea or chest pain - Continue monitoring on room air COPD: continue Symbicort, DuoNeb PRN for shortness of breath Cardiovascular - HR 95, regular; occasionally bordering into tachycardic range, likely in part due to EtOH withdrawal - BP stable at 130-140s/90-100 - No requiring any vasopressors to support blood pressure. - Hypertension: Continue Lisinopril daily Gastrointestinal Abdominal pain with diarrhea - due to chronic alcohol use? pancreatitis? diverticulitis? CT imaging grossly negative for acute process - Possibly contributing to hypomagnesemia - GI consulted; recommendations appreciated Patient to have colonoscopy tomorrow - Low magnesium 2/2 malabsorption? History of Chronic Alcohol Abuse - Chlordiazepoxide as above with withdrawal protocol - Hepatic Steatosis noted on CT Low Folate - IV folate qAM GI prophylaxis: Protonix 40 mg IV daily Genitourinary/Electrolyte - Cr 0.9; monitor U/O Hypomagnesemia - 0.5 on arrival - 5 g of Mg given --> repeat mg 2.5 --> repeat mag pending with 8 pm labs - Etiology of low mag uncertain ?Chronic EtOH? Malabsorption? Colonoscopy pending Hypokalemia - K 3.1 - Repleted with 50 mEq IV + 40 meQ PO - Repeat BMP tonight at 8pm Hypocalcemia - Ca on arrival 6.8 --> 7.1 - Given 1 g calcium gluconate repeat at 8pm Mild Hyponatremia - 134 currently - Continue to follow BMP Endocrine - PTH 226 In the setting of low calcium --> secondary parathyroidism? - TSH WNL at 1.15 Heme/ID - WBC 6; afebrile; no evidence of infection DVT prophylaxis - Lovenox 40 mg daily Code Status - Level I Code Disposition - ICU for electrolyte monitoring - PT and OT evaluate and treat Resident Physician Supervision Note: Bridget Rivas Dr was resident physician during care of patient. I separately evaluated patient and did history and exam. I discussed the case with the resident and generally agree with the findings and plan. Patient's repeat magnesium was 2.5, dose unclear when this repeat laboratory was obtained, it may have been obtained immediately after administration of IV magnesium IV push, patient will be administered a total of 5 g of magnesium, urinary excretion of magnesium will be checked, at this point I believe is multifactorial due to alcohol use and recent diarrhea. Most notably patient has had profound hypomagnesemia in the past. A fractional excretion of magnesium was calculated utilizing her initial magnesium level in the 1700 urine values, I arrive at a fractional excretion of 45, a 24-hour urine magnesium is still pending, however this will be confounded by current magnesium administration. I have personally spent 45 minutes of critical care time in the direct management of this patient. This is a life/limb threatening event. This includes time spent evaluating patient, direct bedside care, chart review, placing orders, interpretation of diagnostic studies, discussion with consultants, patient, and family members, as well as other required patient management activities. This time is exclusive of all separately billable procedures, and teaching time and separate from and in addition to any other critical care service time. Documented By: Arnold Brumfield DO
[2016-02-09] MEDS ORDERED: THIAMINE HCL INJ 100 MG in SYRINGE 9 ML IV ONE (20:10)
[2016-02-09] MEDS ORDERED: FoLIC ACID INJ 1 MG in SYRINGE 9.8 ML IV ONE (20:10)
--- NOTE | 2016-02-09 20:10 | Progress Note ---
Progress Note 02/09/161999 Late entry for episode of severe respiratory distress/failure earlier this afternoon - Earlier this afternoon I was visiting this patient's double-occupancy room to see her roommate for whom I was caring for. As I was walking into the room the nurse was telling staff that Ms. Wolf was in severe respiratory distress. She apparently had just gotten back from radiology (had had a CT scan). The patient was sitting up in bed with severe distress and tachypneic, probably breathing 40-50 times/minute. She could barely speak, and appeared cyanotic. She was yelling "help, help --- hurry up." Vitals - SBP of about 140, sats mid 90s on 100% FIO2, RR 40-50, HR 140-150 On exam, she was using accessory muscles and had retractions. Lungs had very little air movement and diffuse wheezes. Heart - tachycardic skin - ? diffuse erythematous rash mouth - lips cyanotic I asked the nurse to STAT page respiratory for BIPAP placement and hour-long duoneb. These were done within 2-3 minutes. I quickly reviewed her labs and noted her mag to be 0.5. I ordered 2 grams mag sulfate IV x 1. Her primary hospitalist was paged (Dr. Scherer) and he arrived at bedside. Following BIPAP placement and initiation of the neb the patient reported relief in her symptoms (distress, etc). Lungs showed better air movement. Care was then passed off to Dr. Scherer who subsequently consulted the mixer lever operator. Critical care time 30 minutes Berkley FLORES MD
[2016-02-09 20:40] LABS: BUN/CREATININE RATIO 8.4 (10-20); CREATININE 0.78 mg/dl (0.60-1.20); MAGNESIUM 2.8 mg/dl (1.8-2.4)
[2016-02-09] MEDS: BUDESONIDE/FORMOTEROL FUMARATE 80/4.5 60 PUFFS/INHALER INH SCH (21:16)
[2016-02-09] MEDS: ENOXAPARIN 40 MG/0.4 ML SYR SC SCH (21:17)
[2016-02-09] MEDS: ACETAMINOPHEN 325 MG TAB PO PRN (21:20)
[2016-02-10] VITALS (8 sets, daily range): BP systolic 126–137; BP diastolic 83–96; PULSE 80–109; TEMP 36.4–36.6; O2SAT 93–98
[2016-02-10 05:36] LABS: HEMATOCRIT 31.1 % (37-47); MEAN CELL VOLUME 97.5 fL (80-100); MEAN CORPUSCULAR HEMOGLOBIN 36.1 pg (25-34); MEAN PLATELET VOLUME 9.3 fL (7.4-10.4); PLATELET COUNT 249 K/uL (130-400); RED BLOOD COUNT 3.19 M/uL (4.2-5.4); WHITE BLOOD COUNT 3.98 K/uL (4.8-10.8)
[2016-02-10 06:03] LABS: BUN/CREATININE RATIO 10.1 (10-20); CALCIUM 7.1 mg/dl (8.5-10.1); CREATININE 0.71 mg/dl (0.60-1.20); MAGNESIUM 2.2 mg/dl (1.8-2.4); POTASSIUM 4.1 mmol/L (3.5-5.1)
[2016-02-10] MEDS ORDERED: PANTOprazole SOD 40 MG TAB PO SCH (09:00)
[2016-02-10] MEDS ORDERED: POTASSIUM CHLORIDE 10 MEQ TABCR PO ONE (09:45)
[2016-02-10] MEDS ORDERED: CALCIUM GLUCONATE 10% 1,000 MG in SODIUM CHLORIDE 0.9% 50ML 50 ML IV ONE (10:00)
[2016-02-10] MEDS: ACETAMINOPHEN 325 MG TAB PO PRN ×2 (10:12→22:30)
[2016-02-10] MEDS: BUDESONIDE/FORMOTEROL FUMARATE 80/4.5 60 PUFFS/INHALER INH SCH ×2 (10:13→19:28)
[2016-02-10] MEDS: FoLIC ACID INJ 1 MG in SYRINGE 9.8 ML IV SCH (10:13)
[2016-02-10] MEDS: NICOTINE 14 MG/24 HR TDSY TD SCH (10:14)
[2016-02-10] MEDS: LISINOPRIL 20 MG TAB PO SCH (10:14)
--- NOTE | 2016-02-10 11:06 | Critical Care Progress Note ---
Critical Care Progress Note Date of Service Feb 10, 2016. Attending Dr. Brumfield Subjective No complaints this morning Does note that she did not sleep at night; denies any racing thoughts or specific concerns Notes that abdominal pain has improved overall. Objective Physical Exam: General: Comfortable, no apparent distress. Appears mildly tremulous, improved from yesterday Eyes: PERRL, normal EOM bilaterally ENT: Mucous membranes moist, pharynx clear, TM clear Neck: No JVD, no lymphadenopathy, no thyromegaly Lungs: Clear to auscultation bilaterally, no wheezing, no crackles Heart: S1 and S2 with no added sounds or murmurs Abdomen: Soft, non-tender, non-distended, normal bowel sounds in all 4 quadrants Extremities: No pitting edema, no asymmetric swelling, no calf pain or tenderness. faint resting tremor Neuro: AO x 3, denies hallucinations, responds to commands appropriately, normal mood and affect Assessment & Plan 60 year old female with history of chronic alcohol use who presents with second episode of symptomatic hypomagnesemia She did well overnight with no events apart from going without sleep. Our plan for her is as follows: Neurological Currently A/O x 3 Chronic Alcohol Abuse - patient does seem mildly agitated at this time, notes extensive EtOH history. Also has tremors and is tachycardic Ordered PRN Chlordiazepoxide but patient never received. Suspect that this may have resulted in insomnia Librium has been discontinued, instead, will prevent withdrawal by allowing patient to consume alcohol - Alcohol withdrawal protocol instituted Insomnia - Possibly related to inability to consume EtOH and not receiving Librium Respiratory Patient was on nasal cannula overnight; weaned this morning to room air Lungs clear to auscultations COPD: continue Symbicort, DuoNeb PRN for shortness of breath Cardiovascular - HR 88 this morning, - BP stable 136/96; no vasopressor support at this time - Hypertension: Continue Lisinopril daily Prolonged QT interval - Noted on EKG QTc 474 - Discontinued Zofran Gastrointestinal Abdominal pain with diarrhea - due to chronic alcohol use? pancreatitis? diverticulitis? CT imaging grossly negative for acute process - Consider GI etiology for hypomagnesmia: ?poor absorption? - GI consulted; recommendations appreciated. Plan to defer endoscopy until tomorrow to ensure that electrolytes remain stable History of Chronic Alcohol Abuse - Discontinued Chlordiazepoxide - IV Whiskey ordered for patient to mitigate withdrawals - IV Folate and Thiamine supplementation daily GI prophylaxis Protonix discontinued due to risk of hypomagnesemia Chance to Pepcid Genitourinary/Electrolyte - Cr 0.7; monitor U/O Hypomagnesemia - 0.5 on arrival - 5 g of Mg given --> repleted to 2.2 this morning - Etiology of low mag uncertain ?Chronic EtOH? Malabsorption? Colonoscopy pending 24 hour urine collection initiated but given renal clearance of IV magnesium , 24 hour collection will be unreliable in the setting of aggressive repletion, as in this patient; Will cancel 24 hour urine at this time. - Will re-start patient was on Magnesium 400 mg daily prior to arrival; patient may benefit from increasing to BID at discharge. Hypocalcemia - ionized calcium remains low at 0.85 despite increased 1 g Calcium Gluconate repletion - Given prolonged QT interval --> administer additional 1 g Calcium Gluconate this morning - Repeat daily ionized calcium Hypokalemia - K 3.1 --> Replated with repeat K this morning normalized at 4.1 Endocrine Hyperparathyroidism - PTH 226 In the setting of low calcium --> secondary parathyroidism? Vitamin D levels normal Endocrinology has been consulted; PTH elevated appropriate in the setting of hypocalcemia and hypomagnesemia; Endocrine agrees that 24 hour urine collection is unreliable since patient recently had aggressive repletion, the majority of which will spill in the urine. - TSH WNL at 1.15 Heme/ID - Afebrile, WBC 4 DVT prophylaxis - Lovenox 40 mg daily Code Status - Level I Code Disposition - Appropriate for transfer to telemetry. Will call attending and discuss transfer. - OT and PT have been consulted Resident Physician Supervision Note: Dr. Gill was resident physician during care of patient. I separately evaluated patient and did history and exam. I discussed the case with the resident and generally agree with the findings and plan. Discussed with Dr. Pereyra of endocrinology, PTH would be elevated in setting of low Mg and Ca levels. Will see as outpatient for further evaluation of Mg metabolism and possible 24 urine. Patient remained stable and able to be downgraded to telemetry status. Documented By: Arnold Brumfield DO Data Medications: Current Inpatient Medications Medications (Trade) Dose Ordered Sig/Rosemary Route Start Time Stop Time Status Last Admin Dose Admin Enoxaparin Sodium (Lovenox Inj) 40 mg Q24H SC 02/09/16 21:00 03/10/16 20:59 02/09/16 21:17 40 MG Acetaminophen (Tylenol Tab) 650 mg Q4H PRN PO 02/09/16 12:00 03/10/16 11:59 02/10/16 10:12 650 MG Al Hydrox/Mg Hydrox/Simethicone (Maalox Max Susp) 15 ml Q4H PRN PO 02/09/16 12:00 03/10/16 11:59 Magnesium Hydroxide (Milk Of Magnesia Susp) 30 ml Q12H PRN PO 02/09/16 12:00 03/10/16 11:59 Polyethylene (Miralax Powder Packet) 17 gm DAILY PRN PO 02/09/16 12:00 03/10/16 11:59 Budesonide/ Formoterol Fumarate (Symbicort 80/ 4.5 Inh) 2 puffs BID INH 02/09/16 21:00 03/10/16 20:59 02/10/16 10:13 2 PUFFS Albuterol/ Ipratropium (Duoneb) 3 ml Q4H PRN INH 02/09/16 12:00 03/10/16 11:59 Lisinopril (Zestril Tab) 20 mg DAILY PO 02/10/16 09:00 03/11/16 08:59 02/10/16 10:14 20 MG Ioversol (Optiray 320) 100 ml UD PRN IV 02/09/16 12:45 02/13/16 12:44 Nicotine (Nicoderm Cq 14MG Patch) 1 patch QAM TD 02/10/16 09:00 03/11/16 08:59 Miscellaneous 1 ea 1 ea HS N/A 02/09/16 21:00 03/10/16 20:59 Folic Acid 1 mg/ Syringe 10 ml @ 5 mls/min QAM IV 02/10/16 09:00 03/11/16 08:59 02/10/16 10:13 5 MLS/MIN Thiamine HCl/ Syringe (Vitamin B-1 Inj/ Syringe) 10 ml @ 2 mls/min QAM IV 02/10/16 09:00 03/11/16 08:59 Non-Formulary Medication (Whiskey) 1 dose HS PO 02/10/16 21:00 03/11/16 20:59 Famotidine (Pepcid Tab) 20 mg BID PO 02/10/16 10:00 03/11/16 09:59 I & O: 24-Hour Column 02/10/16 08:00 Intake Total 926 ml Output Total 600 ml Balance 326 ml Vital Signs: Date Time Temp Pulse Resp B/P Pulse Ox O2 Delivery O2 Flow Rate FiO2 02/10/16 04:00 36.6 88 22 136/96 97 Nasal Cannula 2.0 02/10/16 04:00 Nasal Cannula 2.0 02/10/16 02:20 90 24 137/94 96 Nasal Cannula 2.0 02/10/16 00:01 36.6 109 22 126/83 94 Nasal Cannula 2.0 02/09/16 23:59 Nasal Cannula 2.0 02/09/16 22:00 98 26 164/101 95 Nasal Cannula 2.0 02/09/16 20:00 36.6 93 19 135/79 95 Nasal Cannula 2.0 02/09/16 20:00 95 Nasal Cannula 2.0 02/09/16 18:00 36.5 99 20 144/104 95 Nasal Cannula 2.0 02/09/16 17:30 105 20 133/90 96 Nasal Cannula 2.0 02/09/16 15:32 149 31 100 BiPAP/CPAP 40 02/09/16 15:32 140 100 40 02/09/16 14:00 36.5 95 18 141/96 99 Room Air 02/09/16 14:00 96 Room Air 02/09/16 13:27 114 24 133/81 94 02/09/16 12:11 90 24 136/93 94 Room Air 02/09/16 11:02 36.9 104 18 114/76 97 Room Air 02/09/16 10:42 100 18 114/76 97 Room Air Laboratory Results: Last 24 Hours Test 02/09/16 14:36 02/09/16 15:24 02/09/16 15:45 02/09/16 16:13 25-Hydroxy Vitamin D Total 40.5 ng/ml White Blood Count 5.99 K/uL Red Blood Count 3.35 M/uL Hemoglobin 12.0 g/dL Hematocrit 33.1 % Mean Corpuscular Volume 98.8 fL Mean Corpuscular Hemoglobin 35.8 pg Mean Corpuscular Hemoglobin Concent 36.3 g/dl RDW Standard Deviation 46.9 fL RDW Coefficient of Variation 13.0 % Platelet Count 257 K/uL Mean Platelet Volume 9.1 fL Prothrombin Time 10.3 SECONDS Prothromb Time International Ratio 1.0 Creatinine 0.78 mg/dl 0.77 mg/dl Est Creatinine Clear Calc Drug Dose 66.6 ml/min 67.5 ml/min Estimated GFR () 95.8 97.3 Estimated GFR (Non- 82.6 83.9 Magnesium Level 2.5 mg/dl Prealbumin 21.1 mg/dl Vitamin B12 Level 613 pg/mL Folate 3.18 ng/mL Sodium Level 134 mmol/L Potassium Level 3.1 mmol/L Chloride Level 94 mmol/L Carbon Dioxide Level 25 mmol/L Anion Gap 15.0 mmol/L Blood Urea Nitrogen 6 mg/dl BUN/Creatinine Ratio 8.2 Random Glucose 126 mg/dl Calcium Level 7.1 mg/dl Ionized Calcium 0.83 mmol/l Parathyroid Hormone (Intact) 226.7 pg/mL Test 02/09/16 16:15 02/09/16 17:40 02/09/16 19:51 02/10/16 00:18 Lactic Acid Level 2.0 mmol/L Urine Random Creatinine 25.0 mg/dl Urine Random Magnesium 5.2 mg/dl Sodium Level 134 mmol/L Potassium Level 4.0 mmol/L Chloride Level 96 mmol/L Carbon Dioxide Level 24 mmol/L Anion Gap 14.0 mmol/L Blood Urea Nitrogen 7 mg/dl Creatinine 0.78 mg/dl Est Creatinine Clear Calc Drug Dose 66.6 ml/min Estimated GFR () 95.8 Estimated GFR (Non- 82.6 BUN/Creatinine Ratio 8.4 Random Glucose 177 mg/dl Calcium Level 7.0 mg/dl Magnesium Level 2.8 mg/dl Test 02/10/16 05:03 White Blood Count 3.98 K/uL Red Blood Count 3.19 M/uL Hemoglobin 11.5 g/dL Hematocrit 31.1 % Mean Corpuscular Volume 97.5 fL Mean Corpuscular Hemoglobin 36.1 pg Mean Corpuscular Hemoglobin Concent 37.0 g/dl RDW Standard Deviation 45.1 fL RDW Coefficient of Variation 12.8 % Platelet Count 249 K/uL Mean Platelet Volume 9.3 fL Sodium Level 135 mmol/L Potassium Level 4.1 mmol/L Chloride Level 98 mmol/L Carbon Dioxide Level 25 mmol/L Anion Gap 12.0 mmol/L Blood Urea Nitrogen 7 mg/dl Creatinine 0.71 mg/dl Est Creatinine Clear Calc Drug Dose 73.2 ml/min Estimated GFR () 107.3 Estimated GFR (Non- 92.6 BUN/Creatinine Ratio 10.1 Random Glucose 129 mg/dl Calcium Level 7.1 mg/dl Ionized Calcium 0.85 mmol/l Phosphorus Level 3.0 mg/dl Magnesium Level 2.2 mg/dl Total Bilirubin 0.3 mg/dl Aspartate Amino Transf (AST/SGOT) 51 U/L Alanine Aminotransferase (ALT/SGPT) 56 U/L Alkaline Phosphatase 86 U/L Total Protein 7.5 gm/dl Albumin 3.7 gm/dl Globulin 3.8 gm/dl Albumin/Globulin Ratio 1.0 Lipase 311 U/L
[2016-02-10] MEDS ORDERED: SODIUM CHLORIDE 0.9% INJ 10 ML VIAL IV ONE (11:13)
[2016-02-10] MEDS ORDERED: MAG SULFATE 50% 1GM/2ML VIAL IV ONE (11:13)
[2016-02-10] MEDS: FAMOTIDINE 20 MG TAB PO SCH ×2 (11:17→21:23)
[2016-02-10] MEDS: THIAMINE HCL INJ 100 MG in SYRINGE 9 ML IV SCH (13:03)
--- NOTE | 2016-02-10 13:10 | Gastroenterology Progress Note ---
Progress Note Date of Service: Feb 10, 2016 Subjective Pt evaluation today including: conversation w/ patient, physical exam, lab review, review of inpatient medication list Patient reports improved symptoms of weakness and tremor today. Decreased abdominal pain. No diarrhea reported overnight. She has been noted to have improved electrolytes but persistent QT prolongation on ECG. Continue Protonix 40 mg daily. C Diff negative. CX, fecal leukocytes and Giardia are pending. Review of Systems Constitutional: + see HPI Respiratory: No problem reported Cardiac: No problem reported Abdomen: + see HPI Psych: No problem reported Medications Current Inpatient Medications Medications (Trade) Dose Ordered Sig/Rosemary Route Start Time Stop Time Status Last Admin Dose Admin Enoxaparin Sodium (Lovenox Inj) 40 mg Q24H SC 02/09/16 21:00 03/10/16 20:59 02/09/16 21:17 40 MG Acetaminophen (Tylenol Tab) 650 mg Q4H PRN PO 02/09/16 12:00 03/10/16 11:59 02/10/16 10:12 650 MG Al Hydrox/Mg Hydrox/Simethicone (Maalox Max Susp) 15 ml Q4H PRN PO 02/09/16 12:00 03/10/16 11:59 Magnesium Hydroxide (Milk Of Magnesia Susp) 30 ml Q12H PRN PO 02/09/16 12:00 03/10/16 11:59 Polyethylene (Miralax Powder Packet) 17 gm DAILY PRN PO 02/09/16 12:00 03/10/16 11:59 Budesonide/ Formoterol Fumarate (Symbicort 80/ 4.5 Inh) 2 puffs BID INH 02/09/16 21:00 03/10/16 20:59 02/10/16 10:13 2 PUFFS Albuterol/ Ipratropium (Duoneb) 3 ml Q4H PRN INH 02/09/16 12:00 03/10/16 11:59 Lisinopril (Zestril Tab) 20 mg DAILY PO 02/10/16 09:00 03/11/16 08:59 02/10/16 10:14 20 MG Ioversol (Optiray 320) 100 ml UD PRN IV 02/09/16 12:45 02/13/16 12:44 Nicotine (Nicoderm Cq 14MG Patch) 1 patch QAM TD 02/10/16 09:00 03/11/16 08:59 Miscellaneous 1 ea 1 ea HS N/A 02/09/16 21:00 03/10/16 20:59 Folic Acid 1 mg/ Syringe 10 ml @ 5 mls/min QAM IV 02/10/16 09:00 03/11/16 08:59 02/10/16 10:13 5 MLS/MIN Thiamine HCl/ Syringe (Vitamin B-1 Inj/ Syringe) 10 ml @ 2 mls/min QAM IV 02/10/16 09:00 03/11/16 08:59 Non-Formulary Medication (Whiskey) 1 dose HS PO 02/10/16 21:00 03/11/16 20:59 Famotidine (Pepcid Tab) 20 mg BID PO 02/10/16 10:00 03/11/16 09:59 02/10/16 11:17 20 MG Objective Vital Signs Date Time Temp Pulse Resp B/P Pulse Ox O2 Delivery O2 Flow Rate FiO2 02/10/16 12:00 93 Room Air 02/10/16 12:00 36.6 96 22 133/93 94 Room Air 02/10/16 10:00 82 16 132/84 93 Room Air 02/10/16 08:00 36.6 80 22 135/96 94 Room Air 02/10/16 08:00 94 Room Air 02/10/16 04:00 36.6 88 22 136/96 97 Nasal Cannula 2.0 02/10/16 04:00 Nasal Cannula 2.0 02/10/16 02:20 90 24 137/94 96 Nasal Cannula 2.0 02/10/16 00:01 36.6 109 22 126/83 94 Nasal Cannula 2.0 02/09/16 23:59 Nasal Cannula 2.0 02/09/16 22:00 98 26 164/101 95 Nasal Cannula 2.0 02/09/16 20:00 36.6 93 19 135/79 95 Nasal Cannula 2.0 02/09/16 20:00 95 Nasal Cannula 2.0 02/09/16 18:00 36.5 99 20 144/104 95 Nasal Cannula 2.0 02/09/16 17:30 105 20 133/90 96 Nasal Cannula 2.0 02/09/16 15:32 149 31 100 BiPAP/CPAP 40 1/3/17 15:32 140 100 40 02/09/16 14:00 36.5 95 18 141/96 99 Room Air 02/09/16 14:00 96 Room Air 02/09/16 13:27 114 24 133/81 94 Physical Exam General Appearance: no apparent distress Eyes: EOMI Respiratory/Chest: lungs clear, normal breath sounds, no respiratory distress Cardiovascular: regular rate, rhythm, no gallop, no murmur Abdomen: normal bowel sounds, soft, + tenderness (left lower quadrant) Neurologic/Psych: alert, normal mood/affect, oriented x 3 Skin: warm/dry Laboratory Results Last 24 Hours Test 02/09/16 14:36 02/09/16 15:24 02/09/16 15:45 02/09/16 16:13 25-Hydroxy Vitamin D Total 40.5 ng/ml White Blood Count 5.99 K/uL Red Blood Count 3.35 M/uL Hemoglobin 12.0 g/dL Hematocrit 33.1 % Mean Corpuscular Volume 98.8 fL Mean Corpuscular Hemoglobin 35.8 pg Mean Corpuscular Hemoglobin Concent 36.3 g/dl RDW Standard Deviation 46.9 fL RDW Coefficient of Variation 13.0 % Platelet Count 257 K/uL Mean Platelet Volume 9.1 fL Prothrombin Time 10.3 SECONDS Prothromb Time International Ratio 1.0 Creatinine 0.78 mg/dl 0.77 mg/dl Est Creatinine Clear Calc Drug Dose 66.6 ml/min 67.5 ml/min Estimated GFR () 95.8 97.3 Estimated GFR (Non- 82.6 83.9 Magnesium Level 2.5 mg/dl Prealbumin 21.1 mg/dl Vitamin B12 Level 613 pg/mL Folate 3.18 ng/mL Sodium Level 134 mmol/L Potassium Level 3.1 mmol/L Chloride Level 94 mmol/L Carbon Dioxide Level 25 mmol/L Anion Gap 15.0 mmol/L Blood Urea Nitrogen 6 mg/dl BUN/Creatinine Ratio 8.2 Random Glucose 126 mg/dl Calcium Level 7.1 mg/dl Ionized Calcium 0.83 mmol/l Parathyroid Hormone (Intact) 226.7 pg/mL Test 02/09/16 16:15 02/09/16 17:40 02/09/16 19:51 02/10/16 00:18 Lactic Acid Level 2.0 mmol/L Urine Random Creatinine 25.0 mg/dl Urine Random Magnesium 5.2 mg/dl Sodium Level 134 mmol/L Potassium Level 4.0 mmol/L Chloride Level 96 mmol/L Carbon Dioxide Level 24 mmol/L Anion Gap 14.0 mmol/L Blood Urea Nitrogen 7 mg/dl Creatinine 0.78 mg/dl Est Creatinine Clear Calc Drug Dose 66.6 ml/min Estimated GFR () 95.8 Estimated GFR (Non- 82.6 BUN/Creatinine Ratio 8.4 Random Glucose 177 mg/dl Calcium Level 7.0 mg/dl Magnesium Level 2.8 mg/dl Test 02/10/16 05:03 White Blood Count 3.98 K/uL Red Blood Count 3.19 M/uL Hemoglobin 11.5 g/dL Hematocrit 31.1 % Mean Corpuscular Volume 97.5 fL Mean Corpuscular Hemoglobin 36.1 pg Mean Corpuscular Hemoglobin Concent 37.0 g/dl RDW Standard Deviation 45.1 fL RDW Coefficient of Variation 12.8 % Platelet Count 249 K/uL Mean Platelet Volume 9.3 fL Sodium Level 135 mmol/L Potassium Level 4.1 mmol/L Chloride Level 98 mmol/L Carbon Dioxide Level 25 mmol/L Anion Gap 12.0 mmol/L Blood Urea Nitrogen 7 mg/dl Creatinine 0.71 mg/dl Est Creatinine Clear Calc Drug Dose 73.2 ml/min Estimated GFR () 107.3 Estimated GFR (Non- 92.6 BUN/Creatinine Ratio 10.1 Random Glucose 129 mg/dl Calcium Level 7.1 mg/dl Ionized Calcium 0.85 mmol/l Phosphorus Level 3.0 mg/dl Magnesium Level 2.2 mg/dl Total Bilirubin 0.3 mg/dl Aspartate Amino Transf (AST/SGOT) 51 U/L Alanine Aminotransferase (ALT/SGPT) 56 U/L Alkaline Phosphatase 86 U/L Total Protein 7.5 gm/dl Albumin 3.7 gm/dl Globulin 3.8 gm/dl Albumin/Globulin Ratio 1.0 Lipase 311 U/L Assessment and Plan Patient is a 60 year old female with a history of numbness and tingling of the extremities presenting with severe hypomagnesemia, hypokalemia and hyponatremia in the setting of chronic diarrhea, LLQ pain and abnormal weight loss. 1. C diff negative. Remainder of stool studies are pending. 2. Supportive care by primary team. 3. Invasive GI work up on hold at present awaiting clinical stability from a cardiac standpoint. Agree with ELPIDIO Jamison as above Abd: Soft, NT, ND, +BS Doing much better today No tremor and feeling "more stable" Consider EGD and Colonoscopy if OK with cardiology.
--- NOTE | 2016-02-10 16:25 | Hospitalist Progress Note ---
Hospitalist Progress Note Date of Service Feb 10, 2016. Subjective Pt evaluation today including: conversation w/ patient, physical exam, chart review, lab review, review of studies, conversation w/ organizational research consultant (Dr. Gill), review of inpatient medication list Pain: 3/10 dull LLQ pain Voiding: no voiding problems Patient was moved to ICU yesterday afternoon following an episode of respiratory distress and cyanosis. Patient states that she started to feeling very anxious while in the CT tube because she is claustrophobic. She began feeling short of breath during the exam. She asked for her inhalers but did not have them with her down at CT. By the time she was back in her room, she had difficulty breathing and was hypoxic, tachycardic and tachypneic. She developed an arrhythmia. Rapid response called, patient put on BIPAP and given Solu-Medrol 125 mg and hour long Duoneb. She felt better after this intervention. She has been back in NSR since that event. She has not had any more episodes and is now saturating 98% on room air. She reports feeling markedly better. She denies any difficulty breathing or anxiety. She states that the tingling in her arms and legs has greatly improved and is no longer constant. She feels the tingling only intermittently now. She is also no longer shaking or having tremors. She states that she was not able to sleep last night. She is still having some diarrhea and LLQ pain, but the pain has improved to a dull 3/10. The patient denies fevers, chills, sweats, chest pain , palpitations, claudication, cough, wheezing, shortness of breath, nausea, vomiting, dysuria, hematuria, urinary retention, paralysis, and weakness. Additional Comments: See HPI for pertinent positives and negatives. All other systems reviewed and negative. Objective Vital Signs Date Time Temp Pulse Resp B/P Pulse Ox O2 Delivery O2 Flow Rate FiO2 02/10/16 15:52 36.6 82 20 134/88 98 Room Air 02/10/16 12:00 93 Room Air 02/10/16 12:00 36.6 96 22 133/93 94 Room Air 02/10/16 10:00 82 16 132/84 93 Room Air 02/10/16 08:00 36.6 80 22 135/96 94 Room Air 02/10/16 08:00 94 Room Air 02/10/16 04:00 36.6 88 22 136/96 97 Nasal Cannula 2.0 02/10/16 04:00 Nasal Cannula 2.0 02/10/16 02:20 90 24 137/94 96 Nasal Cannula 2.0 02/10/16 00:01 36.6 109 22 126/83 94 Nasal Cannula 2.0 02/09/16 23:59 Nasal Cannula 2.0 02/09/16 22:00 98 26 164/101 95 Nasal Cannula 2.0 02/09/16 20:00 36.6 93 19 135/79 95 Nasal Cannula 2.0 02/09/16 20:00 95 Nasal Cannula 2.0 02/09/16 18:00 36.5 99 20 144/104 95 Nasal Cannula 2.0 02/09/16 17:30 105 20 133/90 96 Nasal Cannula 2.0 Physical Exam General Appearance: WD/WN, no apparent distress Eyes: normal inspection, PERRL, EOMI ENT: normal ENT inspection, hearing grossly normal, pharynx normal Neck: supple, no JVD, trachea midline Respiratory/Chest: lungs clear, normal breath sounds, no respiratory distress, + decreased breath sounds Cardiovascular: regular rate, rhythm, no gallop, no murmur Abdomen: normal bowel sounds, soft, + tenderness (LLQ mildy TTP, no guarding or rebound tenderness) Extremities: non-tender, normal inspection, no pedal edema Neurologic/Psychiatric: alert, normal mood/affect, oriented x 3, + pertinent finding (no tremors today) Skin: normal color, warm/dry, no rash Laboratory Results Last 24 Hours Test 02/09/16 16:13 02/09/16 16:15 02/09/16 17:40 02/09/16 19:51 Sodium Level 134 mmol/L 134 mmol/L Potassium Level 3.1 mmol/L 4.0 mmol/L Chloride Level 94 mmol/L 96 mmol/L Carbon Dioxide Level 25 mmol/L 24 mmol/L Anion Gap 15.0 mmol/L 14.0 mmol/L Blood Urea Nitrogen 6 mg/dl 7 mg/dl Creatinine 0.77 mg/dl 0.78 mg/dl Est Creatinine Clear Calc Drug Dose 67.5 ml/min 66.6 ml/min Estimated GFR () 97.3 95.8 Estimated GFR (Non- 83.9 82.6 BUN/Creatinine Ratio 8.2 8.4 Random Glucose 126 mg/dl 177 mg/dl Calcium Level 7.1 mg/dl 7.0 mg/dl Ionized Calcium 0.83 mmol/l Parathyroid Hormone (Intact) 226.7 pg/mL Lactic Acid Level 2.0 mmol/L Urine Random Creatinine 25.0 mg/dl Urine Random Magnesium 5.2 mg/dl Magnesium Level 2.8 mg/dl Test 02/10/16 00:18 02/10/16 05:03 02/10/16 15:54 White Blood Count 3.98 K/uL Red Blood Count 3.19 M/uL Hemoglobin 11.5 g/dL Hematocrit 31.1 % Mean Corpuscular Volume 97.5 fL Mean Corpuscular Hemoglobin 36.1 pg Mean Corpuscular Hemoglobin Concent 37.0 g/dl RDW Standard Deviation 45.1 fL RDW Coefficient of Variation 12.8 % Platelet Count 249 K/uL Mean Platelet Volume 9.3 fL Sodium Level 135 mmol/L Potassium Level 4.1 mmol/L Chloride Level 98 mmol/L Carbon Dioxide Level 25 mmol/L Anion Gap 12.0 mmol/L Blood Urea Nitrogen 7 mg/dl Creatinine 0.71 mg/dl Est Creatinine Clear Calc Drug Dose 73.2 ml/min Estimated GFR () 107.3 Estimated GFR (Non- 92.6 BUN/Creatinine Ratio 10.1 Random Glucose 129 mg/dl Calcium Level 7.1 mg/dl Ionized Calcium 0.85 mmol/l Phosphorus Level 3.0 mg/dl Magnesium Level 2.2 mg/dl Total Bilirubin 0.3 mg/dl Aspartate Amino Transf (AST/SGOT) 51 U/L Alanine Aminotransferase (ALT/SGPT) 56 U/L Alkaline Phosphatase 86 U/L Total Protein 7.5 gm/dl Albumin 3.7 gm/dl Globulin 3.8 gm/dl Albumin/Globulin Ratio 1.0 Lipase 311 U/L Diagnostic Results Reviewed the following studies and agree with interpretation as follows: Patient Name: OLIVIA BOWER Unit Number: [id number] Dictated: 02/09/16 1526 Transcribed: 02/09/16 152 ARG Printed Date/Time: [~ rep prt dt]/[~ rep prt tm] [~ rep ct labl] - [~ rep ct ivnm] [facility] [place] [address] Dictated: 02/09/16 1526 Transcribed: 02/09/16 1526 ARG Printed Date/Time: [~ rep prt dt]/[~ rep prt tm] [~ rep ct labl] - [~ rep ct ivnm] Patient: OLIVIA BOWER Address1: [address] [place] [address] Rec: [id number] Address2: Acct ID: [id number] [facility] Zip: [place] [address] Date: 1955 Sex: F Room/Bed: S2412 Ref Phy: Renee Murillo DO SC: C.2T Att Phy: Chase Scherer MD, PhD Report #: [id number] Natasha Phy: Renee Murillo DO Test: APW Admit Phy: Chase Scherer MD, PhD Operation Specialist: MAGDA Interpreting Phy: Richard Urbina M.D. Diagnosis: HYPOMAGNESEMIA Ordering Phy: Halina Tabares PA-C Service Date: 02/09/16 Admit Date: 02/08/1700/03/17 MNE: [id number] CONF: DICTATED BY: Richard Urbina M.D.]] CC: Halina Tabares .JESUS ALBERTO Cara M., DO Lin, Daniel Y., MD, PhD Endcc: [~ rep ct add3]] CT ABD/PELVIS IV AND ORAL CONT CLINICAL HISTORY: diarrhea and LLQ pain COMPARISON STUDY: 02/18/2014 TECHNIQUE: Following the IV administration of 93 mL of Optiray-320, CT scan of the abdomen and pelvis was performed from the lung bases to the proximal femurs. Images are reviewed in the axial, sagittal, and coronal planes. IV contrast was administered without complication. CT DOSE: 317.02 mGy.cm FINDINGS: Lower chest: There is pulmonary emphysema. There is no focal pulmonary consolidation Liver: There is severe hepatic steatosis. No focal masses are visualized. Gallbladder: Unremarkable. Spleen: Normal in size and attenuation. Pancreas: Unremarkable. Adrenal glands: Unremarkable. Kidneys: There is symmetric renal cortical enhancement. The kidneys are normal in size without hydronephrosis. Bowel: There are no transition zones indicate bowel obstruction. There is no evidence of acute appendicitis. There is no evidence of acute diverticulitis. There is gastric wall thickening versus a nondistended stomach Peritoneum: There is no intraperitoneal free air or abdominal ascites. Vasculature: The abdominal aorta is normal in course and caliber. Adenopathy: None. Pelvic viscera: The bladder, and pelvic viscera are unremarkable. Skeletal structures: No destructive osseous lesions are seen. IMPRESSION: 1. Hepatic steatosis 2. No evidence of bowel obstruction. No evidence of free air 3. Diffuse gastric wall thickening versus a nondistended stomach 4. No evidence of acute diverticulitis. No evidence of acute appendicitis. Electronically signed by: Richard Urbina M.D. 02/09/2016 3:30 PM The status of this report is Signed. Draft = Not yet reviewed or approved by Radiologist. Signed = Reviewed and approved by Radiologist. <AttendingPhy>Chase Scherer MD, PhD</AttendingPhy> <FamilyPhy>Renee Murillo DO</FamilyPhy> <PrimaryPhy>Renee Murillo, </PrimaryPhy> < UnitNumber>[id number]</UnitNumber> <VisitNumber>[id number]</VisitNumber> < PatientName>OLIVIA BOWER</PatientName> <DateOfBirth>1955</DateOfBirth> < Location>C.2T</Location> <ServiceDate>02/09/16</ServiceDate> <MNE>ESINDI</MNE> < OrderingPhy>Halina Tabares PA-C</OrderingPhy> <OrderingPhyMNE>f rep ord dr farias< /OrderingPhyMNE> <DictatingPhyMNE>f rep dict dr farias</DictatingPhyMNE> <CCListMNE >f rep ct dinora</CCListMNE> <AdmittingPhyMNE>f pt admit dr farias</AdmittingPhyMNE> < AttendingPhyMNE>f pt attend dr farias</AttendingPhyMNE> <ConsultingPhyMNE>f pt consult dr farias</ConsultingPhyMNE> <FamilyPhyMNE>f pt fam dr farias</FamilyPhyMNE> <OtherPhyMNE>f pt other dr farias</OtherPhyMNE> < PrimaryPhyMNE>f pt prim care dr farias</PrimaryPhyMNE> <ReferringPhyMNE>f pt referring dr farias</ReferringPhyMNE> Assessment and Plan 60 y/o female with a history of hypomagnesemia, COPD, HTN, HLD, GERD, and urticaria who presented to the ED on 02/08 with numbness and tingling in her arms and legs and tremors. Tingling began 2 weeks ago intermittently at first, now constant. Accompanied by nausea, decreased appetite, weakness and fatigue. Pt also c/o diarrhea and LLQ pain in last few months. Tachycardic, HR 100-110s. Magnesium 0.5, calcium 6.8, potassium 3.1. Cardiac enzymes negative x 1. CXR no acute disease. Hypomagnesemia, hypocalcemia, hypokalemia -Admitted to telemetry for cardiac monitoring. Transferred to ICU for arrhythmias and respiratory distress on 02/08 in the afternoon -Check ionized calcium, prealbumin, folic acid, vitamin B12 -Ionized calcium low at 0.85 -Prealbumin WNL -Folate low at 3.18, B12 WNL -Folic acid 1 mg IV q am and thiamine 100 mg IV q am per ICU. Whiskey per ICU to avoid administering benzos, harinder, etc. for alcohol withdrawal -PTH elevatd at 226.7. Calcium is also low, consider secondary hyperparathyroidism -Pt. received magnesium sulfate 2 gm IV and calcium gluconate 1 gm IV in ED. Additional 1 gm Mg sulfate given on floor -Potassium chloride 40 mEq IV x1 ordered upon admission. Only 2 bags of 10 mEq given. 40 mEq PO given 02/08, another 40 mEq PO on 02/09 -Recheck PRP and magnesium 4 hours after infusions. Continue to monitor with daily PRP and magnesium -Last Mg 2.2, calcium 7.1, potassium 4.1 -Repeat calcium gluconate 1 gm IV x 1 as serum level 7.1 and ionized calcium below 1. Recheck PRP this afternoon. -EKG q am and prn with chest pain -Repeat EKGs in NSR -Hold omeprazole due to hypomagnesemia -Hold oral Mg and Ca supplements as pt. likely not absorbing anyway. Pt. reports she has been taking Mag-Ox 400 mg PO QID, and started taking 6x/day when tingling first began due to previous episode 2 years ago. Pt also taking calcium supplement everyday. -Pt has been stable since last night, okay to transfer to telemetry Diarrhea/LLQ pain -CT abdomen/pelvis with PO and IV contrast: fatty liver, diffuse gastric wall thickening, no acute infectious or inflammatory process -GI consulted: will do colonoscopy when more stable. Recommend C. diff, stool cultures, stool WBC smear, Giardia, check for Celiac. Recommended adding pantoprazole, however this medication along with pt.'s home omeprazole can lower serum magnesium. -PPI canceled, Pepcid ordered instead -C. diff negative, WBC smear negative, cultures, Giardia pending COPD -Continue Symbicort 2 puffs inh BID, ProAir 2 puffs inh QID, and Duoneb q4h prn SOB/wheezing HTN -Continue lisinopril 20 mg PO qd GERD -Hold omeprazole as above GI prophylaxis -Maalox Max 15 mL PO q4h prn dyspepsia -Milk of magnesia 30 mL PO q6h prn constipation -Miralax 17 gm PO qd prn constipation -D/C Zofran as pt has prolonged QT DVT prophylaxis -Enoxaparin 40 mg SC q24h -JESSICA Epstein Code Status -Level I, FULL RESUSCITATION STATUS
[2016-02-10 17:00] LABS: BUN/CREATININE RATIO 8.5 (10-20); CALCIUM 7.6 mg/dl (8.5-10.1); CREATININE 0.72 mg/dl (0.60-1.20); POTASSIUM 3.9 mmol/L (3.5-5.1)
[2016-02-10 18:21] LABS: BENZODIAZEPINE, URINE NEG (NEG); COCAINE,URINE NEG (NEG); PHENCYCLIDINE, URINE NEG (NEG)
[2016-02-10] MEDS ORDERED: BISACODYL 5 MG TABEC PO SCH (19:00)
[2016-02-10] MEDS ORDERED: POLYETHYLENE GLYCER PWD 238 GM BTL PO SCH (19:06)
[2016-02-10] MEDS: POLYETHYLENE GLYCER PWD 238 GM BTL PO SCH (19:27)
[2016-02-10] MEDS ORDERED: WHISKEY 1 DOSE PO SCH (21:00)
[2016-02-10] MEDS: ENOXAPARIN 40 MG/0.4 ML SYR SC SCH (21:25)
[2016-02-10] MEDS ORDERED: ONDANSETRON INJ 2 MG/ML 2 ML VIAL ONE (22:26)
[2016-02-10] MEDS: ONDANSETRON INJ 2 MG/ML 2 ML VIAL IV. SCH (23:00)
[2016-02-11] VITALS (9 sets, daily range): BP systolic 109–150; BP diastolic 78–92; PULSE 80–93; TEMP 36.6–36.9; O2SAT 95–99
[2016-02-11] MEDS: POLYETHYLENE GLYCER PWD 238 GM BTL PO SCH (03:00)
[2016-02-11] MEDS: ONDANSETRON INJ 2 MG/ML 2 ML VIAL IV. SCH ×3 (05:04→22:48)
[2016-02-11 07:14] LABS: MEAN CELL VOLUME 101.2 fL (80-100); MEAN CORPUSCULAR HEMOGLOBIN 36.5 pg (25-34); MEAN CORPUSCULAR HGB CONC 36.1 g/dl (32-36); MEAN PLATELET VOLUME 9.2 fL (7.4-10.4); PLATELET COUNT 231 K/uL (130-400); RED BLOOD COUNT 3.26 M/uL (4.2-5.4); WHITE BLOOD COUNT 6.78 K/uL (4.8-10.8)
[2016-02-11 07:49] LABS: BUN/CREATININE RATIO 4.5 (10-20); CALCIUM 7.7 mg/dl (8.5-10.1); CREATININE 0.76 mg/dl (0.60-1.20); MAGNESIUM 1.7 mg/dl (1.8-2.4); POTASSIUM 3.8 mmol/L (3.5-5.1)
[2016-02-11 07:52] LABS: PHOSPHORUS 3.4 mg/dl (2.5-4.9)
[2016-02-11] MEDS ORDERED: MAGNESIUM SULFATE 1GM / D5W 1 GM in PREMIXED IN D5W 100 ML IV STA (07:57)
[2016-02-11] MEDS: BUDESONIDE/FORMOTEROL FUMARATE 80/4.5 60 PUFFS/INHALER INH SCH ×2 (07:57→20:41)
[2016-02-11 08:01] LABS: ESTIMATED AVERAGE GLUCOSE 100 mg/dl; HA1C FLAG Normal (Normal)
[2016-02-11] MEDS: THIAMINE HCL INJ 100 MG in SYRINGE 9 ML IV SCH (08:01)
[2016-02-11] MEDS: FoLIC ACID INJ 1 MG in SYRINGE 9.8 ML IV SCH (08:01)
[2016-02-11] MEDS: LISINOPRIL 20 MG TAB PO SCH (08:02)
[2016-02-11] MEDS: NICOTINE 14 MG/24 HR TDSY TD SCH (08:02)
[2016-02-11] MEDS: FAMOTIDINE 20 MG TAB PO SCH ×2 (08:02→20:41)
[2016-02-11] MEDS ORDERED: MAGNESIUM SULFATE 1GM / D5W 1 GM in PREMIXED IN D5W 100 ML IV ONE (08:15)
[2016-02-11] MEDS: MAGNESIUM SULFATE 1GM / D5W 1 GM in PREMIXED IN D5W 100 ML IV SCH ×2 (08:38→08:39)
[2016-02-11] MEDS: MAGNESIUM OXIDE 400 MG TAB PO SCH ×3 (08:38→20:41)
--- NOTE | 2016-02-11 14:29 | Hospitalist Progress Note ---
Hospitalist Progress Note Date of Service Feb 11, 2016. Subjective Pt evaluation today including: conversation w/ patient, physical exam, chart review, lab review, review of inpatient medication list Pain: None PO Intake: NPO for endoscopy Voiding: no voiding problems The patient has been feeling well. She did have an episode of nausea last night with dry heaves. Mechanical Technical Service Specialist was notified and ordered Zofran. Patient states that by the time she received the Zofran, her nausea had already resolved anyway. She denies any actual vomiting and states that the dry heaving resolved the nausea. No repeat episodes this morning. The patient had diarrhea over the night once she initiated the bowel prep for her EGD and colonoscopy today. She states that she has not had any more tingling since yesterday. She denies any tremors. LLQ pain is unchanged, 3/10 dull pain. The patient denies fevers, chills, sweats, chest pain, palpitations, claudication, cough, wheezing, shortness of breath, nausea, vomiting, abdominal pain, dysuria, hematuria, urinary retention, paralysis, weakness, numbness and tingling. Additional Comments: See HPI for pertinent positives and negatives. All other systems reviewed and negative. Objective Vital Signs Date Time Temp Pulse Resp B/P Pulse Ox O2 Delivery O2 Flow Rate FiO2 02/11/16 12:00 Room Air 02/11/16 11:55 36.9 88 18 122/81 95 Room Air 02/11/16 11:25 36.9 88 18 122/81 95 Room Air 02/11/16 08:01 36.6 92 18 126/92 99 Room Air 02/11/16 08:00 Room Air 02/11/16 06:07 80 20 98 Room Air 02/11/16 04:00 36.6 89 18 118/84 95 Room Air 02/11/16 04:00 Room Air 02/11/16 00:00 36.8 93 18 109/78 95 Room Air 02/10/16 23:59 Room Air 02/10/16 20:00 Room Air 02/10/16 19:31 36.4 89 22 129/86 98 Room Air 02/10/16 16:00 Room Air 02/10/16 15:52 36.6 82 20 134/88 98 Room Air Physical Exam General Appearance: WD/WN, no apparent distress Eyes: normal inspection, PERRL, EOMI ENT: normal ENT inspection, hearing grossly normal, pharynx normal Neck: supple, no JVD, trachea midline Respiratory/Chest: lungs clear, normal breath sounds, no respiratory distress, + decreased breath sounds Cardiovascular: regular rate, rhythm, no gallop, no murmur Abdomen: normal bowel sounds, soft, + tenderness (LLQ mildly TTP) Extremities: non-tender, normal inspection, no pedal edema Neurologic/Psychiatric: alert, normal mood/affect, oriented x 3 Skin: normal color, warm/dry, no rash Laboratory Results Last 24 Hours Test 02/10/16 16:22 02/10/16 17:55 02/11/16 07:00 02/11/16 08:34 Sodium Level 133 mmol/L 132 mmol/L Potassium Level 3.9 mmol/L 3.8 mmol/L Chloride Level 96 mmol/L 98 mmol/L Carbon Dioxide Level 26 mmol/L 25 mmol/L Anion Gap 11.0 mmol/L 9.0 mmol/L Blood Urea Nitrogen 6 mg/dl 3 mg/dl Creatinine 0.72 mg/dl 0.76 mg/dl Est Creatinine Clear Calc Drug Dose 72.2 ml/min 68.2 ml/min Estimated GFR () 105.5 98.8 Estimated GFR (Non- 91.0 85.3 BUN/Creatinine Ratio 8.5 4.5 Random Glucose 96 mg/dl 90 mg/dl Calcium Level 7.6 mg/dl 7.7 mg/dl Urine Opiates Screen NEG Urine Methadone, Qualitative NEG Urine Barbiturates NEG Urine Phencyclidine (PCP) Level NEG Ur Amphetamine/Methamphetamine NEG MDMA (Ecstasy) Screen NEG Urine Benzodiazepines Screen NEG Urine Cocaine Metabolite NEG Urine Marijuana (THC) NEG White Blood Count 6.78 K/uL Red Blood Count 3.26 M/uL Hemoglobin 11.9 g/dL Hematocrit 33.0 % Mean Corpuscular Volume 101.2 fL Mean Corpuscular Hemoglobin 36.5 pg Mean Corpuscular Hemoglobin Concent 36.1 g/dl RDW Standard Deviation 47.7 fL RDW Coefficient of Variation 13.2 % Platelet Count 231 K/uL Mean Platelet Volume 9.2 fL Estimated Average Glucose 100 mg/dl Hemoglobin A1c 5.1 % Phosphorus Level 3.4 mg/dl Magnesium Level 1.7 mg/dl Total Bilirubin 0.5 mg/dl Aspartate Amino Transf (AST/SGOT) 34 U/L Alanine Aminotransferase (ALT/SGPT) 47 U/L Alkaline Phosphatase 95 U/L Total Protein 7.6 gm/dl Albumin 3.8 gm/dl Globulin 3.8 gm/dl Albumin/Globulin Ratio 1.0 Ionized Calcium 0.92 mmol/l Assessment and Plan 60 y/o female with a history of hypomagnesemia, COPD, HTN, HLD, GERD, and urticaria who presented to the ED on 02/08 with numbness and tingling in her arms and legs and tremors. Tingling began 2 weeks ago intermittently at first, now constant. Accompanied by nausea, decreased appetite, weakness and fatigue. Pt also c/o diarrhea and LLQ pain in last few months. Tachycardic, HR 100-110s. Magnesium 0.5, calcium 6.8, potassium 3.1. Cardiac enzymes negative x 1. CXR no acute disease. Hypomagnesemia, hypocalcemia, hypokalemia -Admitted to telemetry for cardiac monitoring. Transferred to ICU for arrhythmias and respiratory distress on 02/08 in the afternoon. Transferred back to [facility] 02/09 as has been stable. -Check ionized calcium, prealbumin, folic acid, vitamin B12 -Ionized calcium low at 0.85 02/09 -Prealbumin WNL -Folate low at 3.18, B12 WNL -Folic acid 1 mg IV q am and thiamine 100 mg IV q am per ICU. Pt. denies any symptoms of ETOH withdrawal, refused whiskey -PTH elevatd at 226.7. Calcium is also low, consider secondary hyperparathyroidism -Pt. received magnesium sulfate 2 gm IV and calcium gluconate 1 gm IV in ED. Additional 1 gm Mg sulfate given on floor -Potassium chloride 40 mEq IV x1 ordered upon admission. Only 2 bags of 10 mEq given. 40 mEq PO given 02/08, another 40 mEq PO on 02/09 -Recheck PRP and magnesium 4 hours after infusions. Continue to monitor with daily PRP and magnesium -Repeat calcium gluconate 1 gm IV x 1 as serum level 7.1 and ionized calcium below 1 on 02/09. Recheck PRP -Last Mg 1.7, calcium 7.7, potassium 3.8 on 02/10. Repeat ionized calcium 0.92. Give 1 more gm calcium gluconate IV as ionized calcium below 1. Repeat ionized calcium in am -EKG q am and prn with chest pain -Repeat EKGs in NSR -Hold omeprazole due to hypomagnesemia -Pt. likely not absorbing oral Mg and Ca supplements. Pt. reports she has been taking Mag-Ox 400 mg PO QID, and started taking 6x/day when tingling first began due to previous episode 2 years ago. Pt also taking calcium supplement everyday. -Endocrinology consulted. Dr. Raysa Pereyra will evaluate as outpatient. Appointment scheduled for 02/17/16 at 12:30 pm. Diarrhea/LLQ pain -CT abdomen/pelvis with PO and IV contrast: fatty liver, diffuse gastric wall thickening, no acute infectious or inflammatory process -GI consulted: Recommend C. diff, stool cultures, stool WBC smear, Giardia, check for Celiac. Recommended adding pantoprazole, however this medication along with pt.'s home omeprazole can lower serum magnesium. EGD and colonoscopy today. -PPI canceled, Pepcid ordered instead -C. diff negative, WBC smear negative, cultures, Giardia pending COPD -Continue Symbicort 2 puffs inh BID, ProAir 2 puffs inh QID, and Duoneb q4h prn SOB/wheezing HTN -Continue lisinopril 20 mg PO qd GERD -Hold omeprazole as above GI prophylaxis -Maalox Max 15 mL PO q4h prn dyspepsia -Milk of magnesia 30 mL PO q6h prn constipation -Miralax 17 gm PO qd prn constipation DVT prophylaxis -Enoxaparin 40 mg SC q24h -JESSICA crespo and Angely Code Status -Level I, FULL RESUSCITATION STATUS
[2016-02-11] MEDS ORDERED: CALCIUM GLUCONATE 10% 1,000 MG in SODIUM CHLORIDE 0.9% 50ML 50 ML IV ONE (15:00)
[2016-02-11] MEDS ORDERED: PROPOFOL IV EMULSION 10 MG/ML 20 ML VIAL IV ONE (16:41)
[2016-02-11] MEDS ORDERED: LIDOCAINE HCL 2% 2 ML VIAL (20MG/ML) ONE ×2 (16:41)
--- NOTE | 2016-02-11 17:29 | GI REPORT ---
Procedure Date: 02/11/2016 4:50 PM Procedure: Upper GI endoscopy Indications: Abnormal CT of the GI tract Medicines: Monitored Anesthesia Care Complications: No immediate complications. Estimated Blood Loss: Estimated blood loss: none. Procedure: Pre-Anesthesia Assessment: - Prior to the procedure, a History and Physical was performed, and patient medications and allergies were reviewed. The patient's tolerance of previous anesthesia was also reviewed. The risks and benefits of the procedure and the sedation options and risks were discussed with the patient. All questions were answered, and informed consent was obtained. Prior Anticoagulants: The patient has taken no previous anticoagulant or antiplatelet agents. ASA Grade Assessment: II - A patient with mild systemic disease. After reviewing the risks and benefits, the patient was deemed in satisfactory condition to undergo the procedure. After obtaining informed consent, the endoscope was passed under direct vision. Throughout the procedure, the patient's blood pressure, pulse, and oxygen saturations were monitored continuously. The Scope was introduced through the mouth, and advanced to the second part of duodenum. The upper GI endoscopy was accomplished without difficulty. The patient tolerated the procedure well. Findings: The esophagus was normal. Diffuse mild inflammation characterized by congestion (edema) and erythema was found in the entire examined stomach. Biopsies were taken with a cold forceps for histology. The examined duodenum was normal. Impression: - Normal esophagus. - Gastritis. Biopsied. - Normal examined duodenum. Recommendation: - Continue present medications. - Await pathology results. - [facility]. - Perform a colonoscopy today. Dante Celis DO 02/11/2016 5:29:06 PM This report has been signed electronically. Note Initiated On: 02/11/2016 4:50 PM
--- NOTE | 2016-02-11 17:33 | Anesthesiology Progress Note ---
Anesthesia Post Op Note Date & Time Feb 11, 2016 at 17:33 Vital Signs Pain Intensity: 0 Vital Signs Past 12 Hours Date Time Temp Pulse Resp B/P Pulse Ox O2 Delivery O2 Flow Rate FiO2 02/11/16 17:27 95 18 124/82 99 Room Air 02/11/16 17:24 98 18 114/64 98 Room Air 02/11/16 16:03 36.8 86 18 135/84 97 Room Air 02/11/16 15:32 36.8 83 20 132/88 98 02/11/16 12:00 Room Air 02/11/16 11:55 36.9 88 18 122/81 95 Room Air 02/11/16 11:25 36.9 88 18 122/81 95 Room Air 02/11/16 08:01 36.6 92 18 126/92 99 Room Air 02/11/16 08:00 Room Air 02/11/16 06:07 80 20 98 Room Air Notes Mental Status: alert / awake / arousable Nausea / Vomiting: adequately controlled Pain: adequately controlled Airway Patency, RR, SpO2: stable & adequate BP & HR: stable & adequate Hydration State: stable & adequate Anesthetic Complications: no major complications apparent
--- NOTE | 2016-02-11 17:36 | GI REPORT ---
Procedure Date: 02/11/2016 5:02 PM Procedure: Colonoscopy Indications: Chronic diarrhea Medicines: Monitored Anesthesia Care Complications: No immediate complications. Estimated Blood Loss: Estimated blood loss: none. Procedure: Pre-Anesthesia Assessment: - Prior to the procedure, a History and Physical was performed, and patient medications and allergies were reviewed. The patient's tolerance of previous anesthesia was also reviewed. The risks and benefits of the procedure and the sedation options and risks were discussed with the patient. All questions were answered, and informed consent was obtained. Prior Anticoagulants: The patient has taken no previous anticoagulant or antiplatelet agents. ASA Grade Assessment: II - A patient with mild systemic disease. After reviewing the risks and benefits, the patient was deemed in satisfactory condition to undergo the procedure. After I obtained informed consent, the scope was passed under direct vision. Throughout the procedure, the patient's blood pressure, pulse, and oxygen saturations were monitored continuously. The scope was introduced through the anus and advanced to the terminal ileum. The colonoscopy was performed without difficulty. The patient tolerated the procedure well. The quality of the bowel preparation was good. The terminal ileum, the appendiceal orifice and the rectum were photographed. Findings: Several random biopsies were obtained with cold forceps for histology in the entire colon. Fluid aspiration for cytology was performed in the entire colon. Non-bleeding internal hemorrhoids were found during retroflexion. The hemorrhoids were small. Impression: - Non-bleeding internal hemorrhoids. - Several random biopsies were obtained in the entire colon. - Fluid aspiration was performed. Recommendation: - Resume previous diet. - Continue present medications. - Await pathology results. - [facility]. Dante Celis DO 02/11/2016 5:35:05 PM This report has been signed electronically. Note Initiated On: 02/11/2016 5:02 PM
[2016-02-11] MEDS ORDERED: ZOLPIDEM TARTRATE 5 MG TAB PO PRN (20:30)
[2016-02-11] MEDS: ENOXAPARIN 40 MG/0.4 ML SYR SC SCH (20:42)
[2016-02-12 00:42] LABS: O&P GIARDIA AG NOT DETECTED (NOT DETECTED)
[2016-02-12 03:56] VITALS: BP 129/86; PULSE 78; TEMP 36.8; O2SAT 97
[2016-02-12] MEDS: ONDANSETRON INJ 2 MG/ML 2 ML VIAL IV. SCH ×2 (05:00→10:44)
[2016-02-12 07:34] LABS: MEAN CORPUSCULAR HEMOGLOBIN 36.5 pg (25-34); MEAN CORPUSCULAR HGB CONC 35.8 g/dl (32-36); MEAN PLATELET VOLUME 9.3 fL (7.4-10.4); PLATELET COUNT 236 K/uL (130-400); RED BLOOD COUNT 3.04 M/uL (4.2-5.4); WHITE BLOOD COUNT 4.95 K/uL (4.8-10.8)
[2016-02-12 07:38] VITALS: BP 140/90; PULSE 80; TEMP 36.7; O2SAT 99
[2016-02-12 08:00] VITALS: O2SAT 99
[2016-02-12 08:01] LABS: BUN/CREATININE RATIO 9.9 (10-20); CALCIUM 8.5 mg/dl (8.5-10.1); CREATININE 0.77 mg/dl (0.60-1.20); MAGNESIUM 2.4 mg/dl (1.8-2.4); POTASSIUM 3.9 mmol/L (3.5-5.1)
[2016-02-12 08:07] LABS: ALB/GLOB RATIO 0.9 (0.9-2); PHOSPHORUS 4.5 mg/dl (2.5-4.9)
[2016-02-12] MEDS: NICOTINE 14 MG/24 HR TDSY TD SCH (09:00)
[2016-02-12] MEDS: FoLIC ACID INJ 1 MG in SYRINGE 9.8 ML IV SCH (09:01)
[2016-02-12] MEDS: THIAMINE HCL INJ 100 MG in SYRINGE 9 ML IV SCH (09:01)
[2016-02-12] MEDS: BUDESONIDE/FORMOTEROL FUMARATE 80/4.5 60 PUFFS/INHALER INH SCH (09:02)
[2016-02-12] MEDS: MAGNESIUM OXIDE 400 MG TAB PO SCH (09:03)
[2016-02-12] MEDS: FAMOTIDINE 20 MG TAB PO SCH (09:03)
[2016-02-12] MEDS: LISINOPRIL 20 MG TAB PO SCH (09:04)
[2016-02-12] MEDS ORDERED: MGNO400 PO (09:30)
[2016-02-12] MEDS ORDERED: FAMO40TA6 PO (09:30)
--- NOTE | 2016-02-12 09:59 | Discharge Instructions ---
Discharge Instructions Admission Reason for Admission: Hypomagnesemia Discharge Discharge Diagnosis / Problem: Hypomagnesemia, hypocalcemia, hypokalemia Discharge Goals Goal(s): Decrease discomfort, Improve function, Diagnostic testing, Therapeutic intervention Activity Recommendations Activity Limitations: resume your previous activity . Instructions / Follow-Up Instructions / Follow-Up You were admitted to the hospital with numbness/tingling in all extremities and tremors. You were found to have a critically low magnesium of 0.5. Your calcium and potassium, which are other electrolytes, were low as well. You were transferred to the ICU after developing respiratory distress following a CT scan. After receiving IV magnesium, calcium, and potassium, your symptoms improved, and were you transferred back to a telemetry unit. Dr. Pereyra with endocrinology was consulted on your case to help determine the cause of your low electrolytes despite taking oral supplementation at home. You have been scheduled for an appointment with Dr. Raysa Pereyra on 02/17/16 at 12: 30 pm to further evaluate the underlying cause. Due to your history of chronic diarrhea and left lower abdominal pain, gastroenterology was consulted as well. A CT scan of your abdomen and pelvis did not show any acute infection or inflammation to explain your symptoms. Your stool was tested as well but was negative for any infection. Some blood tests were sent out to evaluate for Celiac disease, however these results are still pending. An upper endoscopy and colonoscopy were done to further evaluate your gastrointestinal tract. The colonoscopy showed non-bleeding internal hemorrhoids but was otherwise normal. Several random biopsies were taken throughout the colon to be sent out for histology and fluid was aspirated for cytology for further evaluation. These results are also pending. The upper endoscopy showed some mild inflammation throughout the stomach but was otherwise normal. Biopsies of the stomach were taken for further evaluation as well, and these results are pending. The following changes have been made to your home medications: your omeprazole (Prilosec) will be held for now, as this medication can lower magnesium in your blood. It has been replaced with famotidine (Pepcid) for your acid reflux. Since the dose you received in the hospital has not been effective for you, the prescription sent to your pharmacy is for a higher dose. Please take Pepcid 40 mg by mouth twice a day. You can follow up with your primary care provider regarding alternative acid reflux medications if this increased dose does not help. You will also resume taking oral magnesium supplements. A prescription for magnesium oxide 400 mg by mouth three times a day has been sent to your pharmacy. Please take as directed until your endocrinology appointment, at which time adjustments might be made. Please seek medical attention if you experience fevers, chills, sweats, shakiness/tremors, numbness, tingling, changes in vision, loss of consciousness , nausea, or vomiting. Follow-Up: You will need follow up lab tests for February 14. You will be given a script for a repeat basic metabolic profile and magnesium test to check your electrolytes. These results will be forwarded to your primary care provider and Dr. Pereyra. Please follow up with your primary care provider regarding your hospital stay within 1 week. Please follow up with Dr. Raysa Pereyra (endocrinology) on MondayFebruary 16 at 12:30. This office is located in [address] of the [facility] Building next to the hospital. The office phone number is [phone]. PLEASE, ARRIVE 15 MINUTES EARLY FOR THE APPOINTMENT. PLEASE, TAKE ALL OF YOUR MEDICATION BOTTLES WITH YOU TO THE APPOINTMENT. Thank you Current Hospital Diet Patient's current hospital diet: AHA Diet (Heart Healthy) Discharge Diet Recommended Diet: AHA Diet (Heart Healthy) Procedures Procedures Performed: Esophagogastroduodenoscopy (EGD or upper endoscopy) Colonoscopy Pending Studies Studies pending at discharge: yes List of pending studies: IgA Tissue transglutaminase IgA antibody Celiac disease interpretation Colon biopsy histology results Fluid aspiration for cytology results Gastric biopsy histology results Laboratory Results Hemoglobin A1c Test 02/11/16 07:00 Range/Units Estimated Average Glucose 100 mg/dl Hemoglobin A1c 5.1 4.5-5.6 % Medical Emergencies . Who to Call and When: Medical Emergencies: If at any time you feel your situation is an emergency, please call 911 immediately. . Non-Emergent Contact Non-Emergency issues call your: Primary Care Provider Call Non-Emergent contact if: you have a fever, you have any medication questions . Past History Medical & Surgical History: (1) Paresthesias (2) Hypomagnesemia (3) Hypocalcemia . "Provider Documentation" section prepared by Halina Tabares. VTE Core Measure Inpt VTE Proph given/why not?: Enoxaparin (Lovenox)SQ, T.E.D. Stockings, SCD's
[2016-02-12 10:46] VITALS: BP 140/90; PULSE 80; TEMP 36.7; O2SAT 99
--- NOTE | 2016-02-12 12:12 | Discharge Summary ---
Discharge Summary Admission Date: Feb 09, 2016 at 12:16 Discharge Date: Feb 12, 2016 Discharge Disposition: Home Principal Diagnosis: Hypomagnesemia, hypocalcemia, hypokalemia Procedures: Patient Name: OLIVIA BOWER Unit Number: [id number] Dictated: 02/09/161525 Transcribed: 02/09/161525 ARG Printed Date/Time: [~ rep prt dt]/[~ rep prt tm] [~ rep ct labl] - [~ rep ct ivnm] [facility] Radiology Department [place], [place] [id number] Dictated: 02/09/161525 Transcribed: 02/09/161525 ARG Printed Date/Time: [~ rep prt dt]/[~ rep prt tm] [~ rep ct labl] - [~ rep ct ivnm] Patient: OLIVIA BOWER Address1: [address] [place] [address] Rec: [id number] Address2: Acct ID: [id number] [facility] Zip: [place] [address] Date: 1955 Sex: F Room/Bed: [facility] Ref Phy: Renee Murillo DO SC: C.2T Att Phy: Chase Scherer MD, PhD Report #: [id number] Natasha Phy: Renee Murillo DO Test: APW Admit Phy: Chase Scherer MD, PhD Strap Cutter: MAGDA Interpreting Phy: Richard Urbina M.D. Diagnosis: HYPOMAGNESEMIA Ordering Phy: Halina Tabares PA-C Service Date: 02/09/16 Admit Date: 02/08/1700/03/17 MNE: [id number] CONF: DICTATED BY: Richard Urbina M.D.]] CC: Halina Tabares PA-C Dellegrotti, Cara M., DO Lin, Daniel Y., MD, PhD Endcc: [~ rep ct add3]] CT ABD/PELVIS IV AND ORAL CONT CLINICAL HISTORY: diarrhea and LLQ pain COMPARISON STUDY: 02/18/2014 TECHNIQUE: Following the IV administration of 93 mL of Optiray-320, CT scan of the abdomen and pelvis was performed from the lung bases to the proximal femurs. Images are reviewed in the axial, sagittal, and coronal planes. IV contrast was administered without complication. CT DOSE: 317.02 mGy.cm FINDINGS: Lower chest: There is pulmonary emphysema. There is no focal pulmonary consolidation Liver: There is severe hepatic steatosis. No focal masses are visualized. Gallbladder: Unremarkable. Spleen: Normal in size and attenuation. Pancreas: Unremarkable. Adrenal glands: Unremarkable. Kidneys: There is symmetric renal cortical enhancement. The kidneys are normal in size without hydronephrosis. Bowel: There are no transition zones indicate bowel obstruction. There is no evidence of acute appendicitis. There is no evidence of acute diverticulitis. There is gastric wall thickening versus a nondistended stomach Peritoneum: There is no intraperitoneal free air or abdominal ascites. Vasculature: The abdominal aorta is normal in course and caliber. Adenopathy: None. Pelvic viscera: The bladder, and pelvic viscera are unremarkable. Skeletal structures: No destructive osseous lesions are seen. IMPRESSION: 1. Hepatic steatosis 2. No evidence of bowel obstruction. No evidence of free air 3. Diffuse gastric wall thickening versus a nondistended stomach 4. No evidence of acute diverticulitis. No evidence of acute appendicitis. Electronically signed by: Richard Urbina M.D. 02/09/2016 3:30 PM The status of this report is Signed. Draft = Not yet reviewed or approved by Radiologist. Signed = Reviewed and approved by Radiologist. <AttendingPhy>Chase Scherer MD, PhD</AttendingPhy> <FamilyPhy>Renee Murillo DO</FamilyPhy> <PrimaryPhy>Renee Murlilo, </PrimaryPhy> < UnitNumber>[id number]</UnitNumber> <VisitNumber>[id number]</VisitNumber> < PatientName>SUSANAELOISAOLIVIA</PatientName> <DateOfBirth>1955</DateOfBirth> < Location>C.2T</Location> <ServiceDate>02/09/16</ServiceDate> <MNE>ESINDI</MNE> < OrderingPhy>Halina Tabares PA-C</OrderingPhy> <OrderingPhyMNE>f rep ord dr farias< /OrderingPhyMNE> <DictatingPhyMNE>f rep dict dr farias</DictatingPhyMNE> <CCListMNE >f rep ct mne</CCListMNE> <AdmittingPhyMNE>f pt admit dr farias</AdmittingPhyMNE> < AttendingPhyMNE>f pt attend dr farias</AttendingPhyMNE> <ConsultingPhyMNE>f pt consult dr farias</ConsultingPhyMNE> <FamilyPhyMNE>f pt fam dr farias</FamilyPhyMNE> <OtherPhyMNE>f pt other dr farias</OtherPhyMNE> < PrimaryPhyMNE>f pt prim care dr farias</PrimaryPhyMNE> <ReferringPhyMNE>f pt referring dr farias</ReferringPhyMNE> Patient: OLIVIA BOWER Admit Date: 02/08/1700/03/17 Med Rec: [id number] Acct ID: [id number] [~ rep ct labl] Page 2of 2 p: [~ rep prt dt last] [~ rep prt tm last] [~ rep ct labl] Page 1of 2 p: [~ rep prt dt last] [~ rep prt tm last] GI REPORT [place] Patient: OLIVIA BOWER Admit Date: 02/08/1700/03/17 Med Rec: [id number] Att Phy: Chase Scherer MD, PhD Acct ID: [id number] Natasha Phy: Renee Murillo, DO Date: 1955 Ref Phy: UNKNOWN Fam Phy: Renee Murillo, DO Age: 60 Location: [facility] Sex: F Room/Bed: [facility] MNE:PROVATION REPORT #: [id number] CC: Dante Celis D.O. Endcc: DICTATED BY: Dante Celis D.O. Procedure Date: 02/11/2016 5:02 PM Procedure: Colonoscopy Indications: Chronic diarrhea Medicines: Monitored Anesthesia Care Complications: No immediate complications. Estimated Blood Loss: Estimated blood loss: none. Procedure: Pre-Anesthesia Assessment: - Prior to the procedure, a History and Physical was performed, and patient medications and allergies were reviewed. The patient's tolerance of previous anesthesia was also reviewed. The risks and benefits of the procedure and the sedation options and risks were discussed with the patient. All questions were answered, and informed consent was obtained. Prior Anticoagulants: The patient has taken no previous anticoagulant or antiplatelet agents. ASA Grade Assessment: II - A patient with mild systemic disease. After reviewing the risks and benefits, the patient was deemed in satisfactory condition to undergo the procedure. After I obtained informed consent, the scope was passed under direct vision. Throughout the procedure, the patient's blood pressure, pulse, and oxygen saturations were monitored continuously. The scope was introduced through the anus and advanced to the terminal ileum. The colonoscopy was performed without difficulty. The patient tolerated the procedure well. The quality of the bowel preparation was good. The terminal ileum, the appendiceal orifice and the rectum were photographed. Findings: Several random biopsies were obtained with cold forceps for histology in the entire colon. Fluid aspiration for cytology was performed in the entire colon. Non-bleeding internal hemorrhoids were found during retroflexion. The hemorrhoids were small. Impression: - Non-bleeding internal hemorrhoids. - Several random biopsies were obtained in the entire colon. - Fluid aspiration was performed. Recommendation: - Resume previous diet. - Continue present medications. - Await pathology results. - [facility]. Dante AydenTeresa Celis, 02/11/2016 5:35:05 PM This report has been signed electronically. Note Initiated On: 02/11/2016 5:02 PM Dictated: 02/11/16 1702 Signed: 02/11/16 1735 The status of this report is Signed. Draft = Not yet reviewed or approved by Medical Physician. Signed = Reviewed and approved by Medical Physician. <ConsultingPhyMNE>f pt consult dr farias</ConsultingPhyMNE> <FamilyPhyMNE>f pt fam dr farias</FamilyPhyMNE> <OtherPhyMNE>f pt other dr farias</OtherPhyMNE> < PrimaryPhyMNE>f pt prim care dr farias</PrimaryPhyMNE> <ReferringPhyMNE>f pt referring dr farias</ReferringPhyMNE> Patient: OLIVIA BOWER Admit Date: 02/08/1700/03/17 Med Rec: [id number] Acct ID: [id number] [~ rep ct labl] Page 2of 2 p: [~ rep prt dt last] [~ rep prt tm last] [~ rep ct labl] Page 1of 2 p: [~ rep prt dt last] [~ rep prt tm last] GI REPORT [place] Patient: OLIVIA BOWER Admit Date: 02/08/1700/03/17 Med Rec: [id number] Att Phy: Chase Scherer MD, PhD Acct ID: [id number] Natasha Phy: Renee Murillo, DO Date: 1955 Ref Phy: UNKNOWN Fam Phy: Renee Murillo, DO Age: 60 Location: [facility] Sex: F Room/Bed: [facility] MNE:PROVATION REPORT #: [id number] CC: Dante Celis D.O. Endcc: DICTATED BY: Dante Celis D.O. Procedure Date: 02/11/2016 4:50 PM Procedure: Upper GI endoscopy Indications: Abnormal CT of the GI tract Medicines: Monitored Anesthesia Care Complications: No immediate complications. Estimated Blood Loss: Estimated blood loss: none. Procedure: Pre-Anesthesia Assessment: - Prior to the procedure, a History and Physical was performed, and patient medications and allergies were reviewed. The patient's tolerance of previous anesthesia was also reviewed. The risks and benefits of the procedure and the sedation options and risks were discussed with the patient. All questions were answered, and informed consent was obtained. Prior Anticoagulants: The patient has taken no previous anticoagulant or antiplatelet agents. ASA Grade Assessment: II - A patient with mild systemic disease. After reviewing the risks and benefits, the patient was deemed in satisfactory condition to undergo the procedure. After obtaining informed consent, the endoscope was passed under direct vision. Throughout the procedure, the patient's blood pressure, pulse, and oxygen saturations were monitored continuously. The Scope was introduced through the mouth, and advanced to the second part of duodenum. The upper GI endoscopy was accomplished without difficulty. The patient tolerated the procedure well. Findings: The esophagus was normal. Diffuse mild inflammation characterized by congestion (edema) and erythema was found in the entire examined stomach. Biopsies were taken with a cold forceps for histology. The examined duodenum was normal. Impression: - Normal esophagus. - Gastritis. Biopsied. - Normal examined duodenum. Recommendation: - Continue present medications. - Await pathology results. - [facility]. - Perform a colonoscopy today. Dante Celis, DO 02/11/2016 5:29:06 PM This report has been signed electronically. Note Initiated On: 02/11/2016 4:50 PM Dictated: 02/11/16 6720 Signed: 02/11/16 1919 The status of this report is Signed. Draft = Not yet reviewed or approved by Medical Physician. Signed = Reviewed and approved by Medical Physician. <ConsultingPhyMNE>f pt consult dr farias</ConsultingPhyMNE> <FamilyPhyMNE>f pt fam dr farias</FamilyPhyMNE> <OtherPhyMNE>f pt other dr farias</OtherPhyMNE> < PrimaryPhyMNE>f pt prim care dr farias</PrimaryPhyMNE> <ReferringPhyMNE>f pt referring dr farias</ReferringPhyMNE> Medication Reconciliation New Medications: Famotidine (Pepcid) 40 Mg Tab 40 MG PO BID for 30 Days, #60 TAB Take 1 tablet by mouth twice a day. Magnesium Oxide (Magnesium-Oxide) 400 Mg Tab 400 MG PO TID for 30 Days, #90 TAB Take 1 tablet by mouth three times a day. Continued Medications: Albuterol (Proair Hfa) Aers 2 PUFFS INH QID Budesonide/Formoterol Fumarate (Symbicort 80/4.5 Inhaler) Aero 2 PUFFS INH BID, INHALER Calcium Carbonate-Vitamin D (Calcium 600 + D) 1 Tab Tab 1 TAB PO DAILY Ibuprofen Tab (Motrin) 600 Mg Tab 600 MG PO Q6H PRN for Pain, TAB Ipratropium-Albuterol (Duoneb) 3 Ml Nebu 1 TREATMENT INH Q4H PRN for SOB/Wheezing, INHA Lisinopril (Zestril) 10 Mg Tab 20 MG PO DAILY, TAB Discontinued Medications: Magnesium Oxide (Magnesium-Oxide) 400 Mg Tab 400 MG PO DAILY, #30 Omeprazole (Prilosec) 40 Mg Capcr 40 MG PO DAILY, CAP Discharge Exam Patient reports feeling well. She states that she has not had any tingling in her extremities for 2 days now. She denies any shaking or tremors. Her LLQ pain has remain unchanged and is a dull 3/10 pain. She did have one episode of diarrhea this morning but believes that it is still from the bowel prep she did before, as it was the same color as the Gatorade she drank with her bowel prep. She denies nausea and dry heaves today. The patient states that the Pepcid she is receiving is not adequately controlling her GERD, and she complains of indigestion. Patient is stable and eager for discharge. Review of Systems: Constitutional: No chills, No fatigue, No fever, No sweats, No weakness Eyes: No diplopia, No eye pain, No worsening of vision ENT: No hearing loss, No nasal symptoms, No sore throat Respiratory: No cough, No shortness of breath, No wheezing Cardiovascular: No chest pain, No claudication, No palpitations Abdomen: + diarrhea, + pain (3/10 dull LLQ pain), + problem reported ( indigestion), No nausea, No vomiting Musculoskeletal: No calf pain, No joint pain, No muscle pain Genitourinary - Female: No dysuria, No hematuria, No urinary retention Neurologic: No numbness/tingling, No paralysis, No weakness Integumentary: No color change, No itch, No rash Physical Exam: General Appearance: WD/WN, no apparent distress Eyes: normal inspection, PERRL, EOMI ENT: normal ENT inspection, hearing grossly normal, pharynx normal Neck: supple, no JVD, trachea midline Respiratory/Chest: lungs clear, normal breath sounds, no respiratory distress, + decreased breath sounds Cardiovascular: regular rate, rhythm, no gallop, no murmur Abdomen / GI: normal bowel sounds, soft, + tenderness (mild LLQ tenderness without guarding) Extremities: normal inspection, no calf tenderness, no pedal edema Neurologic/Psychiatric: alert, normal mood/affect, oriented x 3, + pertinent finding (slight tremor in hands, pt. denies symptoms, may be at baseline) Skin: normal color, warm/dry, no rash Hospital Course 60 y/o female with a history of hypomagnesemia, COPD, HTN, HLD, GERD, and urticaria who presented to the ED on 02/08 with numbness and tingling in her arms and legs and tremors. Tingling began 2 weeks ago intermittently at first, now constant. Accompanied by nausea, decreased appetite, weakness and fatigue. Pt also c/o diarrhea and LLQ pain in last few months. Tachycardic, HR 100-110s. Magnesium 0.5, calcium 6.8, potassium 3.1. Cardiac enzymes negative x 1. CXR no acute disease. Hypomagnesemia, hypocalcemia, hypokalemia -Admitted to telemetry for cardiac monitoring. Transferred to ICU for arrhythmias and respiratory distress on 02/08 in the afternoon. Transferred back to [facility] 02/09 as has been stable. -Check ionized calcium, prealbumin, folic acid, vitamin B12 -Ionized calcium low at 0.85 02/09 -Prealbumin WNL -Folate low at 3.18, B12 WNL -Folic acid 1 mg IV q am and thiamine 100 mg IV q am per ICU. Pt. denies any symptoms of ETOH withdrawal, refused whiskey order from ICU -PTH elevated at 226.7 -Pt. received magnesium sulfate 2 gm IV and calcium gluconate 1 gm IV in ED. Additional 1 gm Mg sulfate given on floor -Potassium chloride 40 mEq IV x1 ordered upon admission. Only 2 bags of 10 mEq given. 40 mEq PO given 02/08, another 40 mEq PO on 02/09 -Recheck PRP and magnesium 4 hours after infusions. Continue to monitor with daily PRP and magnesium -Repeat calcium gluconate 1 gm IV x 1 as serum level 7.1 and ionized calcium below 1 on 02/09. Recheck PRP -Mg 1.7, calcium 7.7, potassium 3.8 on 02/10. Repeat ionized calcium 0.92. Give 1 more gm calcium gluconate IV as ionized calcium below 1. Mg sulfate 2 gm IV. -Mg 2.4, calcium 8.5, potassium 3.8 on 02/11. Ionized calcium 1.14. -EKG q am and prn with chest pain -Repeat EKGs in NSR -Hold omeprazole due to hypomagnesemia. PPIs can lower serum magnesium -Pt. likely not absorbing oral Mg and Ca supplements. Pt. reports she has been taking Mag-Ox 400 mg PO QID, and started taking 6x/day when tingling first began due to previous episode 2 years ago. Pt also taking calcium supplement everyday. -Endocrinology consulted. Dr. Raysa Pereyra will evaluate as outpatient. Appointment scheduled for 02/17/16 at 12:30 pm. -Repeat follow up labs (PRP and magnesium) for 02/15/16 as outpatient -Resume Mag Ox 400 mg PO TID for discharge Diarrhea/LLQ pain -CT abdomen/pelvis with PO and IV contrast: fatty liver, diffuse gastric wall thickening, no acute infectious or inflammatory process -GI consulted: Recommend C. diff, stool cultures, stool WBC smear, Giardia, check for Celiac. Recommended adding pantoprazole, however this medication along with pt.'s home omeprazole can lower serum magnesium. EGD showed mild gastritis, biopsies taken for histology. Colonoscopy showed non-bleeding internal hemorrhoids. Random biopsies taken throughout colon for histology, fluid aspiration for cytology. -Stop PPI for discharge as it lowers magnesium. Increased Pepcid dose as pt said current dose not effective. Discharged on Pepcid 40 mg PO BID, can f/u with PCP -C. diff negative, WBC smear negative, shiga toxin and salmonella negative, Giardia negative -IgA, tissue transglutaminase IgA ab and Celiac disease interpretation pending COPD -Continue Symbicort 2 puffs inh BID, ProAir 2 puffs inh QID, and Duoneb q4h prn SOB/wheezing HTN -Continue lisinopril 20 mg PO qd GERD -Hold omeprazole as above -Pepcid 40 mg PO BID sent to pharmacy GI prophylaxis -Maalox Max 15 mL PO q4h prn dyspepsia -Milk of magnesia 30 mL PO q6h prn constipation -Miralax 17 gm PO qd prn constipation DVT prophylaxis -Enoxaparin 40 mg SC q24h -JESSICA Epstein Code Status -Level I, FULL RESUSCITATION STATUS Pt. medically stable for discharge, will f/u with endocrinology outpatient for further evaluation. May resume home medications as before except for changes as noted above. Total Time Spent: Greater than 30 minutes This includes examination of the patient, discharge planning, medication reconciliation, and communication with other providers. Discharge Instructions Please refer to the electronic Patient Visit Report (Discharge Instructions) for additional information.
[2016-02-13 18:29] LABS: IGA SERUM 223 mg/dL (81-463); TIS TRANS IGA 1 U/mL (<4)
[2016-09-22] MEDS ORDERED: LDDP5 TD (15:18)
[2016-09-22] MEDS ORDERED: AMB5 PO (15:18)
[2016-09-22] MEDS ORDERED: TRIA1SPR4 NAE (15:18)
[2016-09-22] MEDS ORDERED: AMOX500T PO (15:31)
== END 2016-02-12 11:14 | disposition home or self-care (01) | DRG 641 ==
LOC: ENRESERVTM → ENRESERVDT → C.EDB 09:00 → C.2T 12:16 → C.MSICU 17:00 → C.2T 02-10 14:39
PROVIDERS: ADMIT Hospitalist; ATTEND Hospitalist
PROC: 5A09357 Assistance with Respiratory Ventilation, Less than 24 Consecutive Hours, Continuous Positive Airway Pressure (ICD-10-PCS; 2016-02-09)
PROC: 0DBE8ZX Excision of Large Intestine, Via Natural or Artificial Opening Endoscopic, Diagnostic (ICD-10-PCS; principal; 2016-02-11 16:00)
PROC: 0DB68ZX Excision of Stomach, Via Natural or Artificial Opening Endoscopic, Diagnostic (ICD-10-PCS; 2016-02-11 16:00)
DX: E83.42 Hypomagnesemia (principal); F10.239 Alcohol dependence with withdrawal, unspecified; E87.1 Hypo-osmolality and hyponatremia; J44.9 Chronic obstructive pulmonary disease, unspecified; I10 Essential (primary) hypertension; E78.5 Hyperlipidemia, unspecified; K21.9 Gastro-esophageal reflux disease without esophagitis; E78.00 Pure hypercholesterolemia, unspecified; J45.909 Unspecified asthma, uncomplicated; F17.210 Nicotine dependence, cigarettes, uncomplicated; Z79.899 Other long term (current) drug therapy; E83.51 Hypocalcemia; E87.6 Hypokalemia; Z86.010 Personal history of colon polyps; K76.0 Fatty (change of) liver, not elsewhere classified; K29.70 Gastritis, unspecified, without bleeding; K64.8 Other hemorrhoids; G47.00 Insomnia, unspecified; E21.3 Hyperparathyroidism, unspecified; Z83.6 Family history of other diseases of the respiratory system; Z82.49 Family history of ischemic heart disease and other diseases of the circulatory system; Z82.5 Family history of asthma and other chronic lower respiratory diseases

== ENCOUNTER → 2016-02-15 | Outpatient (CLI) | payer OTHER ==
[~2016-02-15] MED LIST changes: -ACET325T96 PO; +AMB5 PO; +AMOX500T PO; +FAMO40TA6 PO; +LDDP5 TD; -OMEP40CA PO; +TRIA1SPR4 NAE
[2016-02-15 12:31] LABS: ALT/SGPT 61 U/L (12-78); BLOOD UREA NITROGEN 7 mg/dl (7-18); BUN/CREATININE RATIO 8.9 (10-20); CALCIUM 9.7 mg/dl (8.5-10.1); CARBON DIOXIDE 25 mmol/L (21-32); CHLORIDE 90 mmol/L (98-107); CHOLESTEROL 246 mg/dl (0-200); CREATININE 0.82 mg/dl (0.60-1.20); GLUCOSE 100 mg/dl (70-99); MAGNESIUM 1.9 mg/dl (1.8-2.4); POTASSIUM 4.1 mmol/L (3.5-5.1); SODIUM 128 mmol/L (136-145)
[2016-02-15 12:35] LABS: ALB/GLOB RATIO 0.9 (0.9-2); ALKALINE PHOSPHATASE 105 U/L (45-117); AST/SGOT 56 U/L (15-37); CHOLESTEROL/HDL RATIO 1.8; HDL CHOLESTEROL 140 mg/dl; LDL CHOLESTEROL CALCULATED 91 mg/dl; TRIGLYCERIDES 73 mg/dl (0-150); VERY LOW DENSITY LIPOPROT CALC 15 mg/dl
== END | disposition home or self-care (01) ==
LOC: C.LAB 11:03
PROVIDERS: ATTEND Internal Medicine
DX: E83.42 Hypomagnesemia (principal); E83.51 Hypocalcemia; E87.6 Hypokalemia; I10 Essential (primary) hypertension; M85.80 Other specified disorders of bone density and structure, unspecified site; E78.1 Pure hyperglyceridemia

== ENCOUNTER → 2016-02-24 | Outpatient (CLI) | payer OTHER ==
[2016-02-24 11:47] LABS: BLOOD UREA NITROGEN 6 mg/dl (7-18); BUN/CREATININE RATIO 6.4 (10-20); CALCIUM 9.3 mg/dl (8.5-10.1); CARBON DIOXIDE 23 mmol/L (21-32); CHLORIDE 98 mmol/L (98-107); CREATININE 0.89 mg/dl (0.60-1.20); GLUCOSE 84 mg/dl (70-99); POTASSIUM 4.3 mmol/L (3.5-5.1); SODIUM 132 mmol/L (136-145)
== END | disposition home or self-care (01) ==
LOC: C.LAB 10:29
PROVIDERS: ATTEND Family Medicine
DX: E87.1 Hypo-osmolality and hyponatremia (principal)

== ENCOUNTER → 2016-04-05 | Outpatient (CLI) | payer OTHER ==
[~2016-04-05] MED LIST changes: -FAMO40TA6 PO
== END | disposition home or self-care (01) ==
LOC: C.MAMM 10:52
PROVIDERS: ATTEND Internal Medicine Endocrinology, Diabetes & Metabolism
DX: E55.9 Vitamin D deficiency, unspecified (principal); M85.88 Other specified disorders of bone density and structure, other site

== ENCOUNTER → 2016-05-03 | Outpatient (CLI) | payer OTHER | END | disposition home or self-care (01) | LOC: C.LABSPEC 17:40 | PROVIDERS: ATTEND Nurse Practitioner Family | DX: J02.9 Acute pharyngitis, unspecified (principal) ==

== ENCOUNTER → 2016-06-03 | Outpatient (CLI) | payer OTHER ==
[2016-06-03 10:18] LABS: CALCIUM URINE < 5.0 mg/dl; URINE COLLECTION TIME 24 HOURS; URINE SODIUM 24 HR 42 mmol/24 (40-220)
== END | disposition home or self-care (01) ==
LOC: C.LAB1850 08:39
PROVIDERS: ATTEND Internal Medicine Endocrinology, Diabetes & Metabolism
DX: E78.1 Pure hyperglyceridemia (principal); E83.42 Hypomagnesemia

== ENCOUNTER → 2016-09-19 | Outpatient (CLI) | payer OTHER ==
--- NOTE | 2016-09-19 10:56 | DIAGNOSTIC IMAGING REPORT ---
CHEST 2 VIEWS ROUTINE CLINICAL HISTORY: Z91.81 History of recent fallR07.89 Right-sided chest wall pain pain COMPARISON STUDY: 02/09/2016 FINDINGS: Increased density of the right paratracheal soft tissues. Possibility of a component of right upper lobe consolidative/atelectatic change considered. Lucency overlapping lateral aspect right hemithorax felt to be technical. IMPRESSION: Possible developing right upper lobe atelectasis. CT of the chest suggested as follow-up. The above report was generated using voice recognition software. It may contain grammatical, syntax or spelling errors. Electronically signed by: Ole Paula M.D. 09/19/2016 10:55 AM Dictated Date/Time: 09/19/2016 10:54 AM
== END | disposition home or self-care (01) ==
LOC: C.RAD 10:30
PROVIDERS: ATTEND Nurse Practitioner Adult Health
DX: Z91.81 History of falling (principal); R07.89 Other chest pain

== ENCOUNTER → 2016-09-20 | Outpatient (CLI) | payer OTHER ==
--- NOTE | 2016-09-20 09:43 | DIAGNOSTIC IMAGING REPORT ---
(CHEST) THORAX WITHOUT CLINICAL HISTORY: 61 years-old Female presenting with ABNORMAL FINDING ON IMAGING. TECHNIQUE: Multidetector CT imaging of the chest was performed without the use of intravenous contrast. IV contrast: None. A dose lowering technique was used consistent with the principles of ALARA (as low as reasonably achievable). COMPARISON: Chest x-ray performed the previous day. CT DOSE (mGy.cm): The estimated cumulative dose is 192.34 mGy.cm. FINDINGS: Sales Representative Consultant topogram: Right upper paramediastinal opacity. On soft tissue windows, normal thyroid and thoracic inlet. Several subcentimeter prominent right paratracheal and precarinal lymph nodes noted. Atherosclerosis of aortic arch and proximal branch vessels. Dilatation of the ascending aorta, which measures up to 4 cm in transverse dimension. Normal heart size. Coronary artery calcification at the origin of the left main coronary artery. No pericardial or pleural effusion. Hepatic steatosis. Splenule suggested anterior to the spleen. On lung windows, right upper lobe collapse with obstruction of the right upper lobe bronchus. The absence of intravenous contrast limits evaluation for obstructing mass. No other focal infiltrate or nodule is noted. Mild diffuse bronchial wall thickening. On bone windows, degenerative changes of the spine. Evidence of old right lateral sixth rib fracture. Degenerative changes of the left glenohumeral joint. IMPRESSION: 1. Complete collapse of the right upper lobe with obstruction of the right upper lobe bronchus. Evaluation for an obstructing mass is limited in the absence of intravenous contrast. Further evaluation with bronchoscopy to be considered. 2. Bronchial wall thickening could indicate bronchitis/bronchiolitis. 3. Subcentimeter mediastinal lymph nodes, possibly reactive. 4. Dilation of the descending aorta measuring 4 cm in transverse dimension. 5. Hepatic steatosis. The report will be called/faxed according to standard departmental protocol. Electronically signed by: Cal Romero M.D. 09/20/2016 9:42 AM Dictated Date/Time: 09/20/2016 9:35 AM
== END | disposition home or self-care (01) ==
LOC: C.CTS 08:54
PROVIDERS: ATTEND Nurse Practitioner Adult Health
DX: R91.8 Other nonspecific abnormal finding of lung field (principal); K76.0 Fatty (change of) liver, not elsewhere classified

== ENCOUNTER 2016-09-21 11:17 | Inpatient (IN) | payer OTHER ==
[2016-09-21] VITALS (7 sets, daily range): BP systolic 122–176; BP diastolic 79–106; PULSE 95–107; TEMP 36.3–36.7; O2SAT 93–98; Ht 154.9 cm; Wt 62.7 kg
[~2016-09-21] VITALS: Ht 154.9 cm; Wt 62.7 kg
[~2016-09-21 11:17] MED LIST changes: -AMB5 PO; -AMOX500T PO; -LDDP5 TD; -TRIA1SPR4 NAE
[2016-09-21] MEDS ORDERED: ACETAMINOPHEN 325 MG TAB PO PRN (13:15)
[2016-09-21] MEDS ORDERED: MAGNESIUM HYDROXIDE SUSP 30 ML UDC PO PRN (13:15)
[2016-09-21] MEDS ORDERED: ALUMINUM/MAGNESIUM/SIMETH (MAALOX MAX) 30 ML UDC PO PRN (13:15)
[2016-09-21] MEDS ORDERED: LORAZEPAM 1 MG TAB PO PRN (13:15)
[2016-09-21] MEDS ORDERED: HYDROCODONE/ACETAMINOPHEN 7.5/325MG TAB PO PRN (13:15)
[2016-09-21] MEDS ORDERED: ONDANSETRON INJ 2 MG/ML 2 ML VIAL IV PRN (13:15)
--- NOTE | 2016-09-21 13:42 | History and Physical ---
History & Physical Date & Time of Service: Sep 21, 2016 at 12:39 Chief Complaint: Right Upper Lobe Collapse Pain, Copd Primary Care Physician: Carolina Ledesma C.R.N.P. History of Present Illness Source: patient, spouse 61yo female with history of COPD and alcohol dependence who presents as a direct admission from the pulmonary clinic due to RUL lung collapse. She was seen on Monday by her PCP for a routine office visit. She told her PCP at that time she had had a recent fall (about 2 weeks prior). The fall was accidental - she tripped outside her home. Did not have syncope, loss of consciousness, etc. Since the fall she had been having right upper chest pain and right upper back pain. Has been taking tylenol prn for the pain without relief. When her PCP examined her she was advised to have a CT chest which occurred on Monday. The CT showed RUL lung collapse. Once those results returned she was further advised to go to the pulmonary clinic for evaluation which she did this morning. In addition to pain she has had cough productive of clear sputum. No hemoptysis. No fevers. No chills. No dyspnea until about 2 days ago. She has some pleuritic pain on the right side as well. Past Medical/Surgical History PMH: 1. asthma/COPD 2. tobacco dependence 3. alcohol dependence 4. HTN PSH: 1. 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[place]) Allergies Coded Allergies: Iodinated Diagnostic Agents (Unverified Adverse Reaction, Unknown, SHORTNESS OF BREATH, 02/10/16) Home Medications Scheduled Albuterol (Proair Hfa), 2 PUFFS INH QID Budesonide/Formoterol Fumarate (Symbicort 80/4.5 Inhaler), 2 PUFFS INH BID Calcium Carbonate-Vitamin D (Calcium 600 + D), 1 TAB PO DAILY Lisinopril (Zestril), 20 MG PO DAILY Magnesium Oxide (Magnesium-Oxide), 400 MG PO TID Scheduled PRN Ibuprofen Tab (Motrin), 600 MG PO Q6H PRN for Pain Ipratropium-Albuterol (Duoneb), 1 TREATMENT INH Q4H PRN for SOB/Wheezing Review of Systems Constitutional: + sweats (chronic ), + weight loss (10 pounds over several months), + weakness (legs - for 6 months), + fatigue (last few months), No fever , No chills Eyes: No worsening of vision ENT: + sore throat, No unusual epistaxis, No trouble swallowing Respiratory: + cough, + sputum, + dyspnea on exertion, No hemoptysis Cardiovascular: + chest pain, + claudication (calves with walking), No orthopnea, No edema Abdomen: No pain, No vomiting, No diarrhea, No GI bleeding Musculoskeletal: + muscle pain (day and night; cramps) Genitourinary - Female: No dysuria, No hematuria Neurologic: + weakness (legs), No numbness/tingling Psychiatric: No depression symptoms, No anxiety Endocrine: + fatigue Hematologic / Lymphatic: + abnormal bleeding/bruising Integumentary: No rash Allergic / Immunologic: + environmental allergies Physical Exam Vital Signs Date Time Temp Pulse Resp B/P (MAP) Pulse Ox O2 Delivery O2 Flow Rate FiO2 09/21/16 12:18 36.7 95 20 158/105 General Appearance: no apparent distress, + pertinent finding (coughing) Head: normocephalic, + evidence of trama (mild swelling supraorbital area right side; resolving ecchymoses about both eyes, worse on right; tender over area of swelling above right eye) Eyes: + abnormal sclerae exam (subconjuntival hemorrhage, right eye) ENT: hearing grossly normal, pharynx normal, + nasal drainage, + pertinent finding (deviated septum; no septal hematoma noted; no obvious nasal fracture) Neck: supple, no adenopathy, thyroid normal, no JVD, no carotid bruits, trachea midline Respiratory/Chest: no respiratory distress, no accessory muscle use, + decreased breath sounds (right apex, anterior), + wheezing (b/l) Cardiovascular: regular rate, rhythm, no gallop, no murmur, + abnormal peripheral pulses (feet, DP and pos tib 1+ b/l ) Abdomen/GI: normal bowel sounds, non tender, soft, no organomegaly Back: normal inspection, no CVA tenderness, no muscle spasm Extremities/Musculoskelatal: no pedal edema, normal range of motion Neurologic/Psych: no motor/sensory deficits, alert, normal mood/affect, normal reflexes, oriented x 3 Skin: + pertinent finding (resolving ecchymoses over face) Lymphatic: no adenopathy (no cervical nodes) Diagnostics Diagnostic Radiology CT chest - 09/20/16 - IMPRESSION: 1. Complete collapse of the right upper lobe with obstruction of the right upper lobe bronchus. Evaluation for an obstructing mass is limited in the absence of intravenous contrast. Further evaluation with bronchoscopy to be considered. 2. Bronchial wall thickening could indicate bronchitis/bronchiolitis. 3. Subcentimeter mediastinal lymph nodes, possibly reactive. 4. Dilation of the descending aorta measuring 4 cm in transverse dimension. 5. Hepatic steatosis. Impression Assessment and Plan 61yo female with history of COPD, ongoing tobacco dependence, alcohol dependence , HTN, and a recent fall about 2 weeks ago presenting as a direct admission due to RUL lung collapse found on 09/20/16 CT chest and ongoing pleuritic pain on the right. 1. RUL lung collapse - given her long-standing tobacco use, fatigue, weight loss - this is concerning for an endobronchial lesion. She could have a post-obstructive pneumonia as well. Pulmonary consulted for probable bronchoscopy tomorrow. In meantime pulmonary toilet with nebs, mucinex, and incentive spirometry. 2. COPD with probable exacerbation - start solumedrol 40mg IV q8h. Levaquin 500mg daily. Nebs, pulmonary toilet. Continue symbicort. Desperately needs to quit smoking. 3. pleuritic pain - likely due to recent fall with chest wall contusion. No rib fractures seen on x-ray or CT in the last 48 hours. No pericardial fluid seen on CT chest. Lidoderm patches q12h prn. Steroids should help. [place] prn. 4. head trauma with right facial swelling/pain - CT maxillofacial bones, r/o orbital fracture. Pain control. 5. tobacco dependence - nicoderm patch; university counselor to quit. 6. HTN - continue lisinopril. 7. alcohol dependence - patient denies h/o withdrawal. Will place on etoh withdrawal protocol regardless. Librium 25mg TID. Ativan 1mg q4h prn. MVI/thiamine BID/folic acid. 8. muscle cramps/weakness/claudication of legs - check mag, K, calcium, vitamin D. Previous b12 level was normal. Could have PAD. 9. DVT proph - due to likely bronchoscopy tomorrow defer on chemical means; SCDs for now. 10. post-nasal drip / allergies - gagandeep BID; mucinex BID; nasal steroid. 11. FEN - saline lock IV; regular diet; BMP/mag today. full code, level 1 Level of Care Med/Surg Advanced Directives Existing Advance Directive: No Resuscitation Status FULL RESUSCITATION VTE Prophylaxis VTE Risk Assessment Done? Y/N: Yes Risk Level: Moderate Given or contraindicated: SCD's Note total visit time about 75 minutes including coordinating care with pulmonary Additional Copies To Carolina Ledesma C.R.N.P.
--- NOTE | 2016-09-21 13:44 | CONSULTATION REPORT ---
DATE OF CONSULTATION: 09/21/2016 DATE OF CONSULTATION: 09/21/2016 REASON FOR CONSULTATION: 1. Partial right upper lobe collapse. 2. Shortness of breath. HISTORY OF PRESENT ILLNESS: The patient is a 61-year-old female who was first seen in the office on 09/21/2016. She is seen at the request of Carolina MATHIAS for primary care in the [facility]. Ms. Ledesma contacted me on September 20 after having seen the patient. Apparently, the patient is someone that they follow. The patient had fallen approximately 2-3 weeks prior to being seen in their office, also prior to being seen by me in the office had landed on right side of her head and her right chest. Apparently she fell and landed on some big rocks that they have in their yard. Her was present today and verified this. The patient was having some right-sided chest wall pain and a little bit of shortness of breath so chest x-ray was ordered. A chest x-ray was abnormal, so a CAT scan was ordered. CAT scan showed partial collapse of the right upper lobe. After reviewing the images with Dr. Agrawal there was a question of some kind of obstruction in the right anterior segment. Because of this, it was felt that patient may benefit from bronchoscopic evaluation and hospitalization. The patient presented to me stating the above. She states that she did hit her head. There is no significant loss of consciousness. She did have a lot of bruising on the right side of her face. She states that her eye was swollen completely closed. She had no eye pain. No blurred vision, no change in her vision. She states that following the fall and injury she did have some shortness of breath. She states that she does not really have any shortness of breath prior to this happening. The patient also reports that she has had some cough. Cough has been productive of a clear mucus. She has not noticed any blood in the mucus. She states that she has been wheezing as well. She states that she did have some wheezing prior to this; however, she states that she is having a lot of anterior chest wall pain that goes around into her shoulder blades in her back. She has tried some [id number] medication for this but has not really gotten any significant relief. She states that prior to the fall she really did not have any shortness of breath. She had no significant breathing problems. She states that she was diagnosed with COPD approximately 10-15 years ago. She states it has been several years since she had pulmonary function testing done. This was last done in the [place] area where she came from and that has been at least 4 years ago. She is a current smoker at 1 pack a day. She has smoked for over 50 years. She has tried to quit in the past using patches and gum. She has also tried Chantix in the past but it sounds like when she went up to the higher dose she did have some nausea and GI difficulties so she stopped it. She does report that she had no significant shortness of breath prior to the contusion to her chest wall. She states that prior to this she was working in her garden on a daily basis. She states that her and her live on [place] acres and she is able to walk around the property without any difficulty. She states that she does have some chest pain with deep breath since the fall. She denies any cardiac or heart problems. She has not had any palpitations. She has not had any chest pain or pressure. She has not had any fever or chills, no sweats. She has not had any weight loss that she is aware of. She reports that she does have "terrible heartburn." She states that she is on medication for this and medication does control it. She states that while she is on the medication she has not really had any break through symptoms. She denies any difficulty swallowing. No choking on foods. No choking on liquids. She states that occasionally some of the medications she takes will get stuck bit she states that is because the pills are very large. She states this does not happen very often. She has not had any significant nausea, no vomiting or diarrhea. She states that her bowels are moving well. She has not had any blood in the stool, no difficulty voiding. No hesitancy or urgency, no dysuria. She has not had any difficulty with swelling in her legs. The patient has reported that she has had a sensation of slowly increasing weakness in her legs. She states that that was present prior to falling, but since then she thinks it may have a gotten a little bit worse. She also states that she does have some leg cramping and feet cramping. She states that has been an ongoing issue as well. Her was present. I did ask him if the patient snored. He reported the patient does snore. He has not noticed any pauses or apneic episodes with the snoring. In discussion with the the patient, the patient was hospitalized in February due to some electrolyte imbalances including hypomagnesemia, which was corrected. 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 PAST SURGICAL HISTORY: None. FAMILY HISTORY: Includes arteriosclerosis, COPD, leg cramping. SOCIAL HISTORY: The patient is a 50-year smoker at a pack a day. She also drinks at least 2-3 vodka and nena a day. No street drug use. She states that currently she is not working. She states that she is retired. She was a former elementary school librarian. CURRENT MEDICATIONS: 1. Calcium 600 with vitamin D 1 tablet twice daily. 2. Diazepam 5 mg 1-2 tablets by mouth 1 hour prior to procedure. 3. EpiPen as needed. 4. Esomeprazole 40 mg 1 capsule daily. 5. Folic acid 1 mg 1 tablet daily. 6. Hydroxyzine 25 mg 1 tablet 3-4 times daily as needed. 7. Ibuprofen 600 mg q. 6 hours as needed. 8. DuoNeb every 4 hours as needed. 9. Lisinopril 20 mg daily. 10. Mag-Ox 400 mg 1 tablet 3 times daily. 11. ProAir HFA 1-2 puffs every 4-6 hours as needed. 12. Ranitidine 300 mg 1 tablet twice daily. 13. Symbicort 80/4.5 two puffs twice daily. ALLERGIES: Include no known drug allergies. SHE IS ALLERGIC TO BEE STING AND POLLENS. REVIEW OF SYSTEMS: As above, otherwise unremarkable. PHYSICAL EXAMINATION: GENERAL: The patient is a 61-year-old female sitting in the exam room. She is alert and oriented x3. Mood is good. Affect is good. VITAL SIGNS: Temp is 98.3, pulse 104, respirations 18, blood pressure 120/80, pulse ox is 94% on room air, weight is 137 pounds. HEAD, EYES, EARS, NOSE, AND THROAT: Normocephalic. The patient does have some ecchymosis over the right frontal and parietal area, also around the right orbit. She does have a subconjunctival hemorrhage in the right upper outer quadrant. Pupils equal, round, reactive to light and accommodation. Extraocular movements are intact. [place] moist gingival and buccal mucosa. Nose is mildly congested. Nares are patent. NECK: Supple. No mass. No adenopathy. No bruit. CHEST: Diminished breath sounds, particularly on the right. No appreciated wheeze, rales or rhonchi noted. She does have some anterior and posterior chest wall tenderness to palpation on the right. CARDIOVASCULAR: Regular rate and rhythm. No murmurs, gallops or rubs. ABDOMEN: Bowel sounds are present. Abdomen soft, nontender. No guarding, rigidity or organomegaly. EXTREMITIES: No erythema or edema. NEUROLOGIC: Cranial nerves II through XII are intact. No focal deficit noted. IMAGING DATA: Chest x-ray done on 09/19/2016 shows possible right upper lobe atelectasis versus collapse. CAT scan done September 20 shows complete collapse of the right upper lobe with obstruction of the right upper lobe bronchus with recommendation for bronchoscopy to be considered due to possibility of obstructing mass. IMPRESSION: 1. This is a 61-year-old female, first time patient was seen in the office for abnormality on CAT scan imaging which shows a partial right upper lobe collapse. At this time unsure of the etiology, although when referring back to previous chest x-rays from February 2016 this was not apparent on those. At this point with history of smoking need to rule out an obstructing mass, rule out carcinoma. The case was discussed with Dr. Agrawal and the patient will be admitted to [facility] due to decreasing oxygen saturations as well as intractable pain and have bronchoscopy done in the a.m. This was discussed with the patient. The patient was agreeable to this. 2. Tobacco use. The patient has a greater than [id number] smoking history. We did discuss multiple options and will discuss further about smoking cessation once she is out of the hospital. I do believe she may tolerate low dose Chantix on a more regular basis instead of bumping up to the 1 mg dose. 3. Potential alcohol abuse. It sounds like this may have definitely contribute to the fall. Apparently PCP is addressing this. 4. Chronic obstructive pulmonary disease. The patient will need complete PFTs done when she improves. We did do a spirometry in the office, but I do not feel that the results were valid due to patient's discomfort. We will continue to follow through hospitalization. Patient has been seen and examined and case reviewed. At this time I agree with moving forward with bronchoscopy for evaluation of the atelectasis of the right upper lobe anterior subsegment. MTDD
[2016-09-21] MEDS ORDERED: ALBUT/IPRATROP 3MG/0.5MG NEB 3 ML VIAL INH PRN (13:45)
[2016-09-21] MEDS: METHYLPREDNISOLONE IV 40 MG in SYRINGE 0 ML IV SCH ×2 (13:58→21:50)
[2016-09-21] MEDS: CEROVITE ADV FORMULA TAB PO SCH (13:59)
[2016-09-21] MEDS: GUAIFENESIN 600 MG TABCR PO SCH ×2 (13:59→21:50)
[2016-09-21] MEDS: THIAMINE HCL 100 MG TAB PO SCH ×2 (13:59→19:52)
[2016-09-21] MEDS: CHLORDIAZEPOXIDE 25 MG CAP PO SCH ×2 (13:59→19:55)
[2016-09-21] MEDS: NICOTINE 21 MG/24 HR TDSY TD SCH (14:00)
[2016-09-21] MEDS ORDERED: FEXOFENADINE HCL 60 MG TAB PO ONE (14:00)
[2016-09-21] MEDS: MAGNESIUM OXIDE 400 MG TAB PO SCH ×2 (14:10→19:51)
[2016-09-21] MEDS: LEVOFLOXACIN 500 MG TAB PO SCH (14:10)
[2016-09-21] MEDS: LIDODERM (LIDOCAINE) PATCH 5% TD SCH (14:13)
[2016-09-21 14:19] LABS: BASO % 0.3 %; BASO ABS # 0.01 K/uL (0-0.2); COMPLETE YES; EOS % 0.5 %; HEMATOCRIT 30.9 % (37-47); IG% 0.8 %; LYMPH % 22.8 %; LYMPH ABS # 0.89 K/uL (1.2-3.4); MEAN CELL VOLUME 94.5 fL (80-100); MEAN CORPUSCULAR HEMOGLOBIN 34.9 pg (25-34); MEAN CORPUSCULAR HGB CONC 36.9 g/dl (32-36); MONO % 13.8 %; NEUT % 61.8 %; PLATELET COUNT 316 K/uL (130-400); RED BLOOD COUNT 3.27 M/uL (4.2-5.4)
[2016-09-21 14:27] LABS: PROTHROMBIN TIME (PATIENT) 10.5 SECONDS (9.0-12.0)
[2016-09-21 14:50] LABS: ALB/GLOB RATIO 0.9 (0.9-2); BUN/CREATININE RATIO 10.3 (10-20); CALCIUM 9.2 mg/dl (8.5-10.1); CREATININE 0.66 mg/dl (0.60-1.20); MAGNESIUM 1.3 mg/dl (1.8-2.4); POTASSIUM 3.9 mmol/L (3.5-5.1)
[2016-09-21] MEDS: TRIAMCINOLONE ACET NASAL SPRAY 10.8ML BTL NAE SCH (15:49)
[2016-09-21] MEDS: LISINOPRIL 20 MG TAB PO SCH (15:51)
[2016-09-21] MEDS: MAGNESIUM SULFATE 1GM / D5W 1 GM in PREMIXED IN D5W 100 ML IV SCH ×3 (16:02→18:31)
[2016-09-21] MEDS ORDERED: NIFEdipine 30 MG CR TAB PO ONE (18:15)
[2016-09-21] MEDS: ALBUT/IPRATROP 3MG/0.5MG NEB 3 ML VIAL INH SCH (19:04)
[2016-09-21] MEDS: BUDESONIDE/FORMOTEROL FUMARATE 80/4.5 60 PUFFS/INHALER INH SCH (19:50)
[2016-09-21] MEDS: FEXOFENADINE HCL 60 MG TAB PO SCH (19:51)
--- NOTE | 2016-09-21 20:34 | DIAGNOSTIC IMAGING REPORT ---
MAXILLOFACIAL CT CT DOSE: 592.13 mGy.cm HISTORY: recent fall, head trauma; ?orbital fracture right eye TECHNIQUE: Multiaxial CT images of the maxillofacial region were performed and reformatted in the coronal plane without the use of contrast. A dose lowering technique was utilized adhering to the principles of ALARA. COMPARISON: None. FINDINGS: The visualized cervical spine, skull base, zygomatic arches, pterygoid plates, nasal bones, mandible, and orbits are intact. No fractures identified. Small fluid level within the left maxillary sinus. The mastoid air cells are clear. The globes and retrobulbar fat are intact. Old left cerebellar infarct. IMPRESSION: No fractures within the maxillofacial region. Small fluid level within the left maxillary sinus. Electronically signed by: Michael Cheng M.D. 09/21/2016 8:33 PM Dictated Date/Time: 09/21/2016 8:28 PM
[2016-09-22] VITALS (31 sets, daily range): BP systolic 125–163; BP diastolic 81–105; PULSE 76–124; TEMP 36.1–36.9; O2SAT 90–100
[2016-09-22] MEDS ORDERED: ZOLPIDEM TARTRATE 5 MG TAB PO PRN
[2016-09-22] MEDS: ALBUT/IPRATROP 3MG/0.5MG NEB 3 ML VIAL INH SCH ×3 (02:38→14:29)
[2016-09-22] MEDS: METHYLPREDNISOLONE IV 40 MG in SYRINGE 0 ML IV SCH ×2 (05:42→14:07)
[2016-09-22 07:02] LABS: HEMATOCRIT 29.2 % (37-47); MEAN CELL VOLUME 93.9 fL (80-100); MEAN CORPUSCULAR HGB CONC 37.3 g/dl (32-36); MEAN PLATELET VOLUME 9.1 fL (7.4-10.4); PLATELET COUNT 294 K/uL (130-400); RED BLOOD COUNT 3.11 M/uL (4.2-5.4)
[2016-09-22 07:38] LABS: CALCIUM 9.4 mg/dl (8.5-10.1); CREATININE 0.64 mg/dl (0.60-1.20); POTASSIUM 3.9 mmol/L (3.5-5.1)
[2016-09-22 07:41] LABS: ALB/GLOB RATIO 0.9 (0.9-2)
--- NOTE | 2016-09-22 07:48 | History & Physical Bridge Note ---
H&P Re-Evaluation Bridge Note: I have examined the patient, reviewed the History & Physical and in the interval since the performance of the History & Physical I have noted the following changes of clinical significance: No changes noted
--- NOTE | 2016-09-22 07:49 | Procedure Note ---
Pre-Mod Sedation Assessment General Date of Moderate Sedation: Sep 22, 2016. Vital Signs: Vital Signs Past 12 Hours Date Time Temp Pulse Resp B/P (MAP) Pulse Ox O2 Delivery O2 Flow Rate FiO2 09/22/16 07:46 36.5 96 18 131/87 (102) 93 Room Air 09/22/16 07:34 76 14 94 Room Air 09/22/16 07:27 36.4 102 18 125/83 93 Room Air 09/22/16 03:54 36.4 102 18 125/83 (97) 93 Room Air 09/22/16 02:39 102 14 91 Room Air 09/22/16 00:26 36.4 101 20 163/97 (119) 95 Room Air 09/22/16 00:00 95 Room Air 09/21/16 21:57 36.3 107 18 122/79 95 Room Air Review Cardiovascular: regular rate, rhythm, no edema, no gallop, no JVD, no murmur, normal peripheral pulses Abdomen: non tender, soft, no organomegaly, no pulsatile mass Lungs: chest non-tender, lungs clear, normal breath sounds, no respiratory distress, no accessory muscle use Airway Class: II Pre-Sedation Airway Assessment Oral Cavity: WNL Able to Visualize Vocal Cords: Yes Short Thick Neck: No Hx of Sleep Apnea: No Smoking Status: Current Every Day Smoker Mallampati Classification: Class II ASA Classification: Class III Procedure Planning Contraindications-for Mod Sed: None Yes Notes The planned sedation has been discussed with the patient and consent obtained. I have identified the patient, determined the appropriateness of sedation and have assessed the patient immediately prior to the procedure. All medicine(s) and interventions are by my order.
[2016-09-22] MEDS: CHLORDIAZEPOXIDE 25 MG CAP PO SCH ×2 (08:00→14:06)
[2016-09-22] MEDS ORDERED: NIFEdipine 30 MG CR TAB PO SCH (08:00)
[2016-09-22] MEDS ORDERED: NURSING VERBAL MED ORDER ONE ×2 (08:45→14:00)
--- NOTE | 2016-09-22 08:48 | Bronchoscopy Procedure Note ---
Bronchoscopy Procedure Note Procedure: Bronchoscopy, conscious sedation, bronchial lavage right upper lobe Consent: Obtained through the patient placed into the chart Pre-procedural diagnosis: RB3 atelectasis Post-procedural diagnosis: RB3 atelectasis Start time: 817 End time: 839 Total time: 22minutes Analgesia: 2% liquid lidocaine: Via nebulizer 4% gel lidocaine: Via right naris 2% liquid lidocaine: Via bronchoscopy Sedation: Versed IV: 3 mg Fentanyl IV: 75 g Procedure: The Olympus video bronchoscope was used for this procedure and passed down through the right naris Right naris/posterior naris/posterior oropharynx: Anatomically within normal limits Glottis: Anatomically within normal limits Vocal cords: Proper abduction and abduction, anatomically within normal limits Subglottis/trachea/Stephani: Anatomically within normal limits Right bronchial tree: Right mainstem bronchus: Anatomically within normal limits, large mucous plug coming from the right upper lobe introduced into the right mainstem Right upper lobe: Anatomically within normal limits,RB3 completely obstructed by large mucous plug- Bronchus intermedius: Anatomically within normal limits Right middle lobe: Anatomically within normal limits Right lower lobe: Anatomically within normal limits Findings: Complete obstruction of the RB3 subsegment of the right upper lobe with mucous plug, bronchoscopic unclear Left bronchial tree: Left mainstem bronchus: Anatomically within normal limits Left upper lobe: Anatomically within normal limits Lingula: Anatomically within normal limits Left lower lobe: Anatomically within normal limits Findings: No significant findings noted Bronchial alveolar lavage: RB3 subsegment EBL: None Complications: None Follow-up: In the [facility]
--- NOTE | 2016-09-22 08:48 | Procedure Note ---
Post-Moderate Sedation Plan General Date of Moderate Sedation Sep 22, 2016. Vital Signs: Vital Signs Past 12 Hours Date Time Temp Pulse Resp B/P (MAP) Pulse Ox O2 Delivery O2 Flow Rate FiO2 09/22/16 08:40 120 18 136/104 96 Mask 15.0 09/22/16 08:35 106 12 144/102 95 Mask 15.0 09/22/16 08:30 113 16 160/104 95 Mask 6.0 09/22/16 08:25 108 14 141/97 97 Mask 6.0 09/22/16 08:20 97 14 136/97 98 Mask 6.0 09/22/16 08:15 104 20 142/102 100 Mask 6.0 09/22/16 08:05 103 18 156/105 100 Mask 6.0 09/22/16 07:58 Room Air 09/22/16 07:57 36.5 96 18 131/87 93 Room Air 09/22/16 07:53 36.5 96 18 131/87 93 Room Air 09/22/16 07:46 36.5 96 18 131/87 (102) 93 Room Air 09/22/16 07:34 76 14 94 Room Air 09/22/16 07:27 36.4 102 18 125/83 93 Room Air 09/22/16 03:54 36.4 102 18 125/83 (97) 93 Room Air 09/22/16 02:39 102 14 91 Room Air 09/22/16 00:26 36.4 101 20 163/97 (119) 95 Room Air 09/22/16 00:00 95 Room Air 09/21/16 21:57 36.3 107 18 122/79 95 Room Air Review - Discharge Plan Post Moderate Sedation Plan: On clinical assessment, the patient appears to have tolerated the conscious sedation without complications. Patient is recovering as anticipated. Patient will continue to be monitored by nursing and may be sent back to her room on the fourth floor when meets criteria
[2016-09-22] MEDS ORDERED: MIDAZOLAM HCL 5 MG/ML 1 ML VIAL IV STA (08:53)
[2016-09-22] MEDS ORDERED: FENTANYL CITRATE INJ 50 MCG/1 ML 2 ML VIAL IV STA (08:54)
[2016-09-22] MEDS: NICOTINE 21 MG/24 HR TDSY TD SCH (10:36)
[2016-09-22] MEDS: BUDESONIDE/FORMOTEROL FUMARATE 80/4.5 60 PUFFS/INHALER INH SCH (11:04)
[2016-09-22] MEDS: CEROVITE ADV FORMULA TAB PO SCH (11:05)
[2016-09-22] MEDS: MAGNESIUM OXIDE 400 MG TAB PO SCH ×2 (11:05→14:06)
[2016-09-22] MEDS: FEXOFENADINE HCL 60 MG TAB PO SCH (11:05)
[2016-09-22] MEDS: TRIAMCINOLONE ACET NASAL SPRAY 10.8ML BTL NAE SCH (11:05)
[2016-09-22] MEDS: THIAMINE HCL 100 MG TAB PO SCH (11:06)
[2016-09-22] MEDS: LISINOPRIL 20 MG TAB PO SCH (11:06)
[2016-09-22] MEDS: LEVOFLOXACIN 500 MG TAB PO SCH (11:06)
[2016-09-22] MEDS: GUAIFENESIN 600 MG TABCR PO SCH (11:06)
[2016-09-22] MEDS: LIDODERM (LIDOCAINE) PATCH 5% TD SCH (11:07)
--- NOTE | 2016-09-22 13:04 | DIAGNOSTIC IMAGING REPORT ---
CHEST ONE VIEW PORTABLE HISTORY: atelectasis COMPARISON: Chest 09/19/2016. FINDINGS: Significant improvement aeration within the right upper lobe without any a small hazy airspace opacity remaining within the right suprahilar location. No pneumothorax. Old, healed right-sided rib fractures. Mild diffuse interstitial thickening. The heart is normal in size. No pleural effusions. IMPRESSION: 1. Significant improved aeration within the right upper lobe with a small hazy airspace opacity remaining. Recommend follow up to ensure complete resolution. 2. Slight progression of the mild interstitial thickening. This could be due to mild congestive change. 3. No pneumothorax. Electronically signed by: Michael Cheng M.D. 09/22/2016 1:03 PM Dictated Date/Time: 09/22/2016 1:00 PM
[2016-09-22] MEDS ORDERED: PANTOprazole SOD 40 MG TAB PO ONE (14:15)
--- NOTE | 2016-09-22 15:13 | Discharge Instructions ---
Discharge Instructions Date of Service Sep 22, 2016. Admission Reason for Admission: Collapse Of Right Lung Discharge Discharge Diagnosis / Problem: Collapse of right lung Discharge Goals Goal(s): Decrease discomfort, Improve function, Increase independence Activity Recommendations Activity Limitations: resume your previous activity . Instructions / Follow-Up Instructions / Follow-Up Dr. Agrawal next week Carolina Ledesma in 2-3 weeks You should use your nebulizer every 4-6 hours while you are awake, even if you feel that your breathing is doing well. This will help your lungs heal from the collapse. When you see the lung doctor in the office, discuss with them if you need to continue this scheduled or if you can use it PRN moving forward. Current Hospital Diet Patient's current hospital diet: Regular Diet Discharge Diet Recommended Diet: Low Sodium Diet (2gm Na) Pending Studies Studies pending at discharge: no Medical Emergencies . Who to Call and When: Medical Emergencies: If at any time you feel your situation is an emergency, please call 911 immediately. . Non-Emergent Contact Non-Emergency issues call your: Primary Care Provider, Dental Office Receptionist . . "Provider Documentation" section prepared by Renetta De La Torre. . VTE Core Measure Inpt VTE Proph given/why not?: SCD's
[2016-09-22] MEDS ORDERED: LDDP5 TD ×2 (15:18)
[2016-09-22] MEDS ORDERED: AMB5 PO ×2 (15:18)
[2016-09-22] MEDS ORDERED: TRIA1SPR4 NAE ×2 (15:18)
--- NOTE | 2016-09-22 15:18 | Discharge Summary ---
Discharge Summary Date of Service Sep 22, 2016. Discharge Summary Admission Date: Sep 21, 2016 at 11:47 Discharge Disposition: Home Principal Diagnosis: [place] of R lung Problems/Secondary Diagnoses: COPD HTN GERD PND Alcohol abuse Tobacco use Procedures: Bronch 09/22 Consultations: Pulmonology Medication Reconciliation New Medications: Amoxicillin & Pot Clavulanate (Augmentin 500MG) 1 Tab Tab 1 TAB PO BID for 7 Days, #14 TAB Lidocaine (Lidocaine) 1 Patch Tdsy 2 PATCH TD QAM for 10 Days Triamcinolone Acetonide (Nasal (Nasacort Allergy 24Hr) 55 Mcg/Act Spr 2 SPRAYS JAH DAILY for 30 Days Zolpidem Tartrate (Zolpidem Tartrate) 5 Mg Tab 5 MG PO HS PRN for Sleep for 5 Days, TAB Continued Medications: Albuterol (Proair Hfa) Aers 2 PUFFS INH QID Budesonide/Formoterol Fumarate (Symbicort 80/4.5 Inhaler) Aero 2 PUFFS INH BID, INHALER Calcium Carbonate-Vitamin D (Calcium 600 + D) 1 Tab Tab 1 TAB PO DAILY Ibuprofen Tab (Motrin) 600 Mg Tab 600 MG PO Q6H PRN for Pain, TAB Ipratropium-Albuterol (Duoneb) 3 Ml Nebu 1 TREATMENT INH Q4H PRN for SOB/Wheezing, INHA Lisinopril (Zestril) 10 Mg Tab 20 MG PO DAILY, TAB Magnesium Oxide (Magnesium-Oxide) 400 Mg Tab 400 MG PO TID for 30 Days, #90 TAB Take 1 tablet by mouth three times a day. Discharge Exam Pt is doing well s/p bronch. She has had no further SOB. Pain patches are helping with pleuritic pain and this is minimal with the pain patch. Tolerating PO without issue, ate two lunches actually. Pt denies fever, abd pain, n/v/c/d, LE pain or swelling. States the nasonex has stopped her PND. Physical Exam: General Appearance: WD/WN, no apparent distress Respiratory/Chest: normal breath sounds, no respiratory distress Cardiovascular: regular rate, rhythm, no edema Abdomen / GI: non tender, soft Extremities: no calf tenderness, no pedal edema Neurologic/Psychiatric: alert, normal mood/affect Skin: normal color, warm/dry Hospital Course 61yo female with history of COPD, ongoing tobacco dependence, alcohol dependence , HTN, and a recent fall about 2 weeks ago presenting as a direct admission due to RUL lung collapse found on 09/20/16 CT chest and ongoing pleuritic pain on the right. 1. RUL lung collapse - given her long-standing tobacco use, fatigue, weight loss - this is concerning for an endobronchial lesion or post-obstructive pneumonia as well. Bronch 09/22 and sx now resolved with CXR neg Pulm requests for augmentin given potential for post-obstructive PNA Advised ongoing Q6hr nebs, rx given for new neb machine as pt states hers is 15-20 yrs old No need for ongoing steroids 2. COPD with possible exacerbation - as above Nebs, pulmonary toilet. Continue symbicort. Needs to quit smoking. 3. pleuritic pain - likely due to recent fall with chest wall contusion. No rib fractures seen on x-ray or CT in the last 48 hours. No pericardial fluid seen on CT chest. Lidoderm patches q12h prn. 4. head trauma with right facial swelling/pain - CT maxillofacial bones neg for fracture 5. tobacco dependence - nicoderm patch; safety counselor to quit. 6. HTN - continue lisinopril. 7. alcohol dependence - patient denies h/o withdrawal. No issues with short admission 8. post-nasal drip / allergies - gagandeep BID; mucinex BID; nasal steroid. 9. Pt had ambian during admission and requested rx for d/c I did provide her with a small amount of this given her potential for insomnia related to pain but did advise her that this should not be a retirement use medication Total Time Spent: Greater than 30 minutes This includes examination of the patient, discharge planning, medication reconciliation, and communication with other providers. Discharge Instructions Please refer to the electronic Patient Visit Report (Discharge Instructions) for additional information. Follow-Up Dr. Agrawal next week Carolina Ledesma in 2-3 weeks Additional Copies To Carolina Ledesma ,Kevin.
[2016-09-22] MEDS ORDERED: MIDAZOLAM HCL 5 MG/ML 1 ML VIAL IV ONE (15:29)
[2016-09-22] MEDS ORDERED: FENTANYL CITRATE 100 MCG 2 ML CARP IV ONE (15:29)
[2016-09-22] MEDS ORDERED: AMOX500T PO ×2 (15:31)
[2016-09-23] MEDS ORDERED: PANTOprazole SOD 40 MG TAB PO SCH (08:00)
== END 2016-09-22 15:30 | disposition home or self-care (01) | DRG 166 ==
LOC: C.4E 11:47
PROVIDERS: ADMIT Internal Medicine; ATTEND Internal Medicine
PROC: 0B9C8ZZ Drainage of Right Upper Lung Lobe, Via Natural or Artificial Opening Endoscopic (ICD-10-PCS; principal; 2016-09-22)
DX: J98.19 Other pulmonary collapse (principal); J18.9 Pneumonia, unspecified organism; J44.1 Chronic obstructive pulmonary disease with (acute) exacerbation; S20.20XA Contusion of thorax, unspecified, initial encounter; S09.90XA Unspecified injury of head, initial encounter; R09.82 Postnasal drip; R91.1 Solitary pulmonary nodule; J45.909 Unspecified asthma, uncomplicated; I10 Essential (primary) hypertension; F10.20 Alcohol dependence, uncomplicated; F17.200 Nicotine dependence, unspecified, uncomplicated; Z79.899 Other long term (current) drug therapy; Z82.49 Family history of ischemic heart disease and other diseases of the circulatory system; Z82.5 Family history of asthma and other chronic lower respiratory diseases; W18.09XA Striking against other object with subsequent fall, initial encounter; Y92.017 Garden or yard in single-family (private) house as the place of occurrence of the external cause; Y99.8 Other external cause status

== ENCOUNTER → 2017-04-17 | Outpatient (CLI) | payer OTHER ==
[~2017-04-17] MED LIST changes: +AMB5 PO; +LDDP5 TD; +TRIA1SPR4 NAE
--- NOTE | 2017-04-17 14:00 | DIAGNOSTIC IMAGING REPORT ---
(CHEST) THORAX WITHOUT CT DOSE: 182.46 mGy.cm CLINICAL HISTORY: 61 years-old Female with R93.8 Abnormal finding on imaging . Follow-up study to assess right upper lobe opacity. TECHNIQUE: Multiaxial CT images of the chest were performed without contrast. A dose lowering technique was utilized adhering to the principles of ALARA. COMPARISON: Chest radiograph 09/22/2016, CT chest 09/20/2016. FINDINGS: No dominant thyroid nodule identified. No pathologic adenopathy of the chest. Heart is normal in size without pericardial effusion. Coronary arterial disease. There is moderate atherosclerosis of the aorta. Mild fusiform dilation of the ascending thoracic aorta beginning distally to the sinotubular junction redemonstrated, 4.1 x 4.0 cm, unchanged from comparison. The unopacified pulmonary artery appears unremarkable. There is no pneumothorax or pleural effusion. Moderate emphysema. There is mild bilateral bronchial wall thickening suggesting bronchitis. Mild degree of peribronchial tree secretions are noted bilaterally. The right upper lobe bronchus is patent without obstructing mass identified. There is minimal groundglass opacity with linear subsegmental consolidation of the anterior aspect right upper lobe within the area of prior consolidation seen on study dated 09/20/2016. Additionally, there is minimal tree-in-bud nodularity within this distribution. 3 mm nodule of the right lung apex, image 35 series 4. Evaluation of the lungs is mildly limited secondary to respiratory motion. Minimal subpleural reticulation of the lingula suggest areas of scarring. Suspicious pulmonary nodules or masses are identified. Hepatic steatosis. No acute abnormality of the imaged upper abdomen. The soft tissues are unremarkable. The bones appear intact. Multilevel endplate spurring of the spine. IMPRESSION: 1. Emphysema with mild bronchitis. Minimal tree-in-bud nodularity of the right upper lobe compatible with associated infectious or inflammatory bronchiolitis. 2. Mild mucosal secretions are seen throughout the tracheobronchial tree. The right upper lobe bronchus is patent with mild pleural-based subsegmental linear consolidative opacity suggesting postinflammatory scarring. 3. No focal airspace consolidation to suggest pneumonia. 4. Mild fusiform dilation of the ascending thoracic aorta redemonstrated, 4.1 cm. 5. Hepatic steatosis. Electronically signed by: Jarett Edmond M.D. 04/17/2017 1:59 PM Dictated Date/Time: 04/17/2017 1:50 PM
== END | disposition home or self-care (01) ==
LOC: C.CTS 13:28
PROVIDERS: ATTEND Physician Assistant
DX: J43.9 Emphysema, unspecified (principal); K76.0 Fatty (change of) liver, not elsewhere classified; R91.8 Other nonspecific abnormal finding of lung field; R93.1 Abnormal findings on diagnostic imaging of heart and coronary circulation

== ENCOUNTER → 2017-06-06 | Day surgery (SDC) | payer OTHER ==
--- NOTE | 2017-06-05 17:12 | History and Physical ---
History & Physical Date of Service Jun 05, 2017. History & Physical 61-year-old female here for bronchoscopic evaluation of chronic cough with associated congestion an abnormal CT scan showing bronchiectatic changes especially in the right upper lobe: Patient continues to have difficulties with cough and congestion. She feels like there is mucus in her chest that she cannot cough up. She states that it will move around and occasionally she will get a very thick dark colored mucus up. She has not noted any blood in the mucus. She has continued to have some shortness of breath both at rest and with exertion. She states that once she is able to expectorate or even move the secretions that she does feel better. She is currently not having any chest discomfort with deep breath. She does continue to use her Symbicort. She is using 2 puffs twice a day with this. She is also using her ProAir. She may use it once or twice day. Her nebulizer she may use once or twice a week. She states that her cough seems to be worse at bedtime. She states that when she lays down she will get a scratchy sensation in her throat. She states this will cause her to cough most of the evening. She has not really found anything to help this. She states that this past weekend she did have difficulty with laryngitis. She states that this happens frequently. She states that she took some [id number] Chloraseptic spray and it did help. Unfortunately she does continue to smoke. Currently she smoking about 1 pack a day. We did do counseling on smoking cessation. She is not interested in quitting at this time. She denies any other difficulties or problems at this time. She is not having any cardiac symptoms. No chest pain. No angina. No palpitations. She has not had any fevers that she is aware of. No chills. No night sweats. She has not had any weight changes. No history of exposure to TB that she is aware of. No significant travel history. She has not had any difficulty with GI symptoms. No nausea or vomiting. No indigestion or heartburn. No difficulty with her bowels. No difficulty voiding. No swelling in her extremities. She has been taking all of her medications as directed. No side effects from medications. Unfortunate she does continue to consume alcohol heavily. Currently she is drinking at least 2-3 cans of beer daily. In reviewing her chart, initially when I saw or she is here for what appeared to be a pleural effusion was hospitalized for this. Was secondary to a fall with rib fractures. She was actually hospitalized and treated for this. Last CT the chest that we have is from April 17 2017. It is showing some minimal tree-in-bud nodularity right upper lobe. It is also seeing mucosa secretions throughout the tracheobronchial tree. Review of Systems Constitutional: as noted in HPI. Eyes: negative. ENT: negative. Cardiovascular: as noted in HPI. Respiratory: as noted in HPI. Gastrointestinal: as noted in HPI. Genitourinary: negative. Musculoskeletal: negative. Integumentary: negative. Neurological: negative. Psychiatric: negative. Endocrine: negative. Hematologic/Lymphatic: negative. Active Problems 1. Acid reflux disease 2. Acute pharyngitis 3. Alcoholism 4. Allergic rhinitis 5. Allergy to bee sting 6. Moderate COPD 7. Claustrophobia 8. Elevated parathyroid hormone 9. History of fall 10. Hypertension 11. Hypertriglyceridemia 12. Hypomagnesemia 13. Hyponatremia 14. Insomnia 15. Internal hemorrhoids 16. Osteopenia 17. Sleeping difficulty 18. Smokes 1/2 pack per day 19. Tinea corporis 20. History of Lyme disease 21. Urticaria 22. Vitamin D deficiency Surgical History 1. History of Complete Colonoscopy 2. History of Lymphadenectomy Family History 1. Denied: Family history of malignant neoplasm of breast 2. Denied: Family history of malignant neoplasm of prostate 3. Denied: Family history of myocardial infarction 4. Family history of No known health problems 5. Denied: Family history of Ovarian cancer 6. Family history of emphysema (Z82.5) 7. Denied: Family history of malignant neoplasm of breast 8. Denied: Family history of malignant neoplasm of prostate 9. Denied: Family history of myocardial infarction 10. Denied: Family history of Ovarian cancer 11. Denied: Family history of malignant neoplasm of breast 12. Denied: Family history of malignant neoplasm of prostate 13. Denied: Family history of myocardial infarction 14. Denied: Family history of Ovarian cancer 15. Family history of asthma (Z82.5) 16. Denied: Family history of malignant neoplasm of breast 17. Denied: Family history of malignant neoplasm of prostate 18. Denied: Family history of myocardial infarction 19. Denied: Family history of Ovarian cancer Social History Alcohol use (Z78.9) Always uses seat belt Current every day smoker (F17.200) Denied: History of Dental care, regularly Does not use smokeless tobacco (Z78.9) Denied: History of Drug use Exercises 1 to 2 times per week (Z78.9) Full-time employment Living situation Occupation Smokes 1/2 pack per day Denied: History of Special needs due to hearing impairment Denied: History of Special needs due to visual impairment Two children Current Meds 1. Esomeprazole Magnesium 40 MG Oral Capsule Delayed Release; TAKE 1 CAPSULE 2. RaNITidine HCl - 300 MG Oral Tablet; TAKE 1 TABLET TWICE DAILY 3. Magic Mix(benadry/maalox/xylocaine 1:1:1 compounded at pharmacy); Swish & Swallow 4. EpiPen 2-[place] 0.3 MG/0.3ML Injection Solution Auto-injector; INJECT 0.3ML 5. Ipratropium-Albuterol 0.5-2.5 (3) MG/3ML Inhalation Solution; USE 1 UNIT DOSE IN 6. ProAir HFA 108 (90 Base) MCG/ACT Inhalation Aerosol Solution; USE 1 TO 2 7. Symbicort 80-4.5 MCG/ACT Inhalation Aerosol; INHALE 2 PUFFS TWICE DAILY 8. Benzonatate 100 MG Oral Capsule; TAKE 1 CAPSULE 3 TIMES DAILY 9. BuPROPion HCl ER (SR) 100 MG Oral Tablet Extended Release 12 Hour; TAKE 1 10. Montelukast Sodium 10 MG Oral Tablet; TAKE 1 TABLET DAILY 11. Spiriva Respimat 1.25 MCG/ACT Inhalation Aerosol Solution; INHALE 2 INHALATIONS BY 12. Lisinopril 40 MG Oral Tablet; take 1 tablet by mouth once daily; 13. Magnesium Oxide 400 MG Oral Tablet; TAKE 1 TABLET 3 times daily; 14. Zolpidem Tartrate 5 MG Oral Tablet; TAKE 1 TO 2 TABLETS AT BEDTIME NEEDED 15. Folic Acid 1 MG Oral Tablet; take 1 tablet once daily; 16. Calcium 600+D 600-400 MG-UNIT Oral Tablet; Take 1 tablet twice daily; 17. Terbinafine HCl - 1 % External Cream; apply to lesion and 2 cm surrounding normal skin 18. HydrOXYzine HCl - 25 MG Oral Tablet; TAKE 1 TABLET 3 TO 4 TIMES DAILY NEEDED 19. Ibuprofen 600 MG Oral Tablet; TAKE 1 TABLET EVERY 6 HOURS WITH FOOD Allergies 1. No Known Drug Allergies 2. Bee sting 3. Pollen Immunizations PPSV --- Series1: 09-Mar-2005; Series2: 06-Dec-2013 Tdap --- Series1: 09-Mar-2005; Series2: 25-Aug-2015 Zoster --- Series1: 25-Sep-2015 Vital Signs Height: 5 ft 1 in Weight: 139 lb 6 oz BMI Calculated: 26.33 BSA Calculated: 1.62 Temperature: 97.8 F, Oral Respiration: 18 Heart Rate: 115 O2 Saturation: 96 Blood Pressure: 132 / 74, LUE, Sitting Physical Exam Constitutional General appearance: No acute distress, well appearing and well nourished. Eyes Conjunctiva and lids: No swelling, erythema or discharge. Pupils and irises: Equal, round and reactive to light. Ears, Nose, Mouth, and Throat External inspection of ears and nose: Normal. Oropharynx: Normal with no erythema, edema, exudate or lesions. Pulmonary Respiratory effort: No increased work of breathing or signs of respiratory distress. Auscultation of lungs: Abnormal. She has coarse wheeze/rhonchi throughout. There are no rales. Cardiovascular Palpation of heart: Normal PMI, no thrills. Auscultation of heart: Normal rate and rhythm, normal S1 and S2, without murmurs. Examination of extremities for edema and/or varicosities: Normal. Abdomen Abdomen: Non-tender, no masses. Liver and spleen: No hepatomegaly or splenomegaly. Lymphatic Palpation of lymph nodes in neck: No lymphadenopathy. Neurologic Cranial nerves: Cranial nerves 2-12 intact. Reflexes: 2+ and symmetric. Sensation: No sensory loss. Psychiatric Orientation to person, place, and time: Normal. Mood and affect: Normal.
[~2017-06-06] VITALS: Ht 154.9 cm; Wt 65.0 kg
[~2017-06-06] MED LIST changes: +DEXTROSE 5% 1000ML 1,000 ML IV SCH; +FENTANYL CITRATE INJ 50 MCG/1 ML 2 ML VIAL IV ONE; +IPRATROPIUM BROMIDE NEB SOLN 0.02% 2.5 ML VIAL INH ONE; +LEVALBUTEROL 1.25MG/3ML NEB INH ONE; +LIDOCAINE VISCOUS 2% 100ML TOP ONE; +MAGN400T6 PO; +MIDAZOLAM HCL 5 MG/ML 1 ML VIAL IV ONE; +NURSING VERBAL MED ORDER ONE; +ZOLP5TAB6 PO
[2017-06-06 07:54] VITALS: BP 156/109; PULSE 98; TEMP 36.4; O2SAT 99; Ht 154.9 cm; Wt 65.0 kg
[2017-06-06 07:58] LABS: BASO % 0.5 %; BASO ABS # 0.02 K/uL (0-0.2); EOS % 1.1 %; EOS ABS # 0.05 K/uL (0-0.5); HEMATOCRIT 31.9 % (37-47); HEMOGLOBIN 11.5 g/dL (12.0-16.0); IG# 0.01 K/uL (0.00-0.02); LYMPH ABS # 1.14 K/uL (1.2-3.4); MEAN CELL VOLUME 98.5 fL (80-100); MEAN CORPUSCULAR HEMOGLOBIN 35.5 pg (25-34); MEAN PLATELET VOLUME 8.4 fL (7.4-10.4); MONO % 11.6 %; MONO ABS # 0.51 K/uL (0.11-0.59); NEUT % 60.6 %; NEUT ABS # 2.65 K/uL (1.4-6.5); PLATELET COUNT 302 K/uL (130-400); RED CELL DISTRIBUTION WIDTH CV 13.3 % (11.5-14.5); RED CELL DISTRIBUTION WIDTH SD 47.4 fL (36.4-46.3); WHITE BLOOD COUNT 4.38 K/uL (4.8-10.8)
[2017-06-06 08:00] LABS: MEAN CORPUSCULAR HGB CONC 36.1 g/dl (32-36)
[2017-06-06 08:07] LABS: PTT PATIENT 24.1 SECONDS (21.0-31.0)
[2017-06-06 08:23] LABS: ALBUMIN 3.6 gm/dl (3.4-5.0); CALCIUM 8.8 mg/dl (8.5-10.1); CREATININE 0.78 mg/dl (0.60-1.20); POTASSIUM 4.2 mmol/L (3.5-5.1)
[2017-06-06 08:25] LABS: TOTAL PROTEIN 7.7 gm/dl (6.4-8.2)
--- NOTE | 2017-06-06 09:03 | Pre Sedation Assessment ---
Pre Sedation Assessment General Date of Sedation: June 06, 2017. Vital Signs Past 12 Hours Date Time Temp Pulse Resp B/P (MAP) Pulse Ox O2 Delivery O2 Flow Rate FiO2 06/06/17 07:54 36.4 98 20 156/109 (125) 99 Room Air Review Cardiovascular: regular rate, rhythm, no edema, no gallop, no JVD, no murmur, normal peripheral pulses Lungs: + decreased breath sounds Pre-Sedation Airway Assessment Smoking Status: Current Every Day Smoker Hx of Sleep Apnea: No Hx of difficult intubation: No Short Thick Neck: No Thyro-mental Distance: > 3 Finger Breadths Oral Cavity: WNL Mallampati Classification: Class III ASA Classification: Class II NPO Status Date of Last Intake of Fluids: Jun 05, 2017 Time of Last Intake of Fluids: 1829 Date of Last Intake of Solids: Jun 05, 2017 Time of Last Intake of Solids: 1829 Procedure Planning Contraindications for Sedation: None Current Medications Reviewed: Yes Notes The planned sedation has been discussed with the patient. Informed Consent was obtained. I have identified the patient, determined the appropriateness of sedation and have assessed the patient immediately prior to the procedure. All medicine(s) and interventions are by my order.
--- NOTE | 2017-06-06 09:38 | Bronchoscopy Procedure Note ---
Bronchoscopy Procedure Note Procedure: Bronchoscopy, conscious sedation, bronchial lavage Consent: Obtained through the patient placed into the chart Pre-procedural diagnosis: Chronic cough Post-procedural diagnosis: Chronic Start time: 917 End time: 929 Total time: 12 minutes Analgesia: 2% liquid lidocaine: Via nebulizer 4% gel lidocaine: Via right naris 2% liquid lidocaine: Via bronchoscopy Sedation: Versed IV: 3mg Fentanyl IV: 75 g Procedure: The Olympus video bronchoscope was used for this procedure and passed down through the right naris Right naris/posterior naris/posterior oropharynx: Anatomically within normal limits, diffuse nasal and posterior nasal erythema Glottis: Anatomically within normal limits Vocal cords: Proper abduction and abduction, anatomically within normal limits Subglottis/trachea/Stephani: Anatomically within normal limits Right bronchial tree: Right mainstem bronchus: Anatomically within normal limits Right upper lobe: Anatomically within normal limits Bronchus intermedius: Anatomically within normal limits Right middle lobe: Anatomically within normal limits Right lower lobe: Anatomically within normal limits Findings: No significant findings noted Left bronchial tree: Left mainstem bronchus: Anatomically within normal limits Left upper lobe: Anatomically within normal limits Lingula: Anatomically within normal limits Left lower lobe: Anatomically within normal limits Findings: No significant findings noted Bronchial alveolar lavage: Right upper lobe EBL: None Complications: Some mild coughing with associated tachypnea post procedure Follow-up: [facility]
--- NOTE | 2017-06-06 09:38 | Post Sedation Assessment ---
Post Sedation Assessment General Date of Sedation June 06, 2017. Vital Signs: Vital Signs Past 12 Hours Date Time Temp Pulse Resp B/P (MAP) Pulse Ox O2 Delivery O2 Flow Rate FiO2 06/06/17 09:30 85 19 144/116 100 Mask 6 06/06/17 09:27 06/06/17 09:25 85 19 133/84 100 Mask 6 06/06/17 09:20 101 16 153/91 100 Mask 6 06/06/17 09:15 91 16 166/154 100 Mask 4 06/06/17 09:10 91 16 161/101 94 Room Air 06/06/17 07:54 36.4 98 20 156/109 (125) 99 Room Air Post Procedure Recovery Score Activity: (2) Moves 4 extremities * Respiration: (2) Deep breath/cough Circulation: (2) +/-20% PreAnes Value Consciousness: (2) Fully Awake Oxygen Saturation: (1) O2 needed for >90% Post Anesthesia Score: 9 Discharge Sedation Level of Care: Fast Track Phase II Post Sedation Plan On clinical assessment, the patient appears to have tolerated the sedation without complications. Patient is recovering as anticipated. Patient will continue to be monitored by nursing and may be discharged when sedation discharge criteria are met per below protocol. Upon Completions of procedure and additional 15 minutes continue every 5 minute vital signs and the P.A.R. score; then discharge to a Phase I or Fast Track to Phase II per the following guidelines: * Discharge Patient to appropriate Phase II area if PAR is 8 or greater or return to pre- procedure baseline. The post - procedure orders will be as directed. * If PAR score is less than 8 or not return to pre-procedure baseline then patient will follow Phase I monitoring till PAR is reached for Phase II. The Phase I may be done in procedure room or may call to secure a Phase I area. * If naloxone or flumazenil are used for reversal, hold in Phase I for an additional 60 -120 minutes before discharge to Phase II. Please call the Sedation Physician to re-evaluate and complete post-note for discharge to Phase II area. Do NOT discharge from procedure sedation or Phase 1 until post- sedation evaluation note is complete by procedure /sedation MD Sedation Discharge Instructions to be given to the patient at discharge to home.
--- NOTE | 2017-06-06 09:41 | Discharge Instructions ---
Discharge Instructions Date of Service June 06, 2017. Admission Reason for Admission: COUGH Discharge Discharge Diagnosis / Problem: Chronic cough Discharge Goals Goal(s): Diagnostic testing Activity Recommendations Activity Limitations: resume your previous activity Exercise/Sports Limitations: as tolerated Shower/Bathe: tomorrow Driving or Machine Use: resume 1 day after discharge . Instructions / Follow-Up Instructions / Follow-Up Follow[facility]up with the [facility] pulmonary clinic Current Hospital Diet Patient's current hospital diet: Discharge Diet Recommended Diet: Regular Diet Procedures Procedures Performed: Bronchoscopy, bronchial lavage, conscious sedation Pending Studies Studies pending at discharge: no Medical Emergencies . Who to Call and When: Medical Emergencies: If at any time you feel your situation is an emergency, please call 911 immediately. . Non-Emergent Contact Non-Emergency issues call your: Environmental Projects Advisor Call Non-Emergent contact if: you have a fever, temperature is above 101 . . "Provider Documentation" section prepared by Roddy Agrawal. .
[2017-06-06 10:00] VITALS: BP 117/72; PULSE 97; TEMP 36.9; O2SAT 89
[2017-06-06 10:30] VITALS: BP 104/67; PULSE 93; O2SAT 91
[2017-06-06 10:57] VITALS: BP 130/76; PULSE 99; TEMP 36.9; O2SAT 94
[2017-06-06 11:26] VITALS: BP 130/81; PULSE 91; O2SAT 94
== END | disposition home or self-care (01) ==
LOC: C.ACU 07:27
PROVIDERS: ATTEND Internal Medicine Critical Care Medicine
DX: R05 Cough (principal); K21.9 Gastro-esophageal reflux disease without esophagitis; F10.20 Alcohol dependence, uncomplicated; J44.9 Chronic obstructive pulmonary disease, unspecified; I10 Essential (primary) hypertension; E78.1 Pure hyperglyceridemia; E83.42 Hypomagnesemia; F17.210 Nicotine dependence, cigarettes, uncomplicated; E55.9 Vitamin D deficiency, unspecified; Z82.5 Family history of asthma and other chronic lower respiratory diseases; Z79.899 Other long term (current) drug therapy